=== PATIENT | female | born 1970 | race Caucasian/White ===

== ENCOUNTER 2023-09-25 05:02 | Observation (INO) ==
--- NOTE | 2023-08-11 16:23 | PAT Medication Instructions ---
Medication Instructions Date of Service August 11, 2023 Home Medications albuterol sulfate 90 mcg/actuation breath activated powder inhaler 1 inh inhalation QID PRN cetirizine 10 mg capsule (Zyrtec) 10 mg PO QAM docusate sodium 100 mg tablet 100 mg PO QAM gabapentin 600 mg tablet 2 tab PO BID glucosamine-chondroitin 250 mg-200 mg tablet 1 tab PO QAM levothyroxine 125 mcg tablet 125 mcg PO QAM multivitamin 1 tab PO QAM pantoprazole 40 mg tablet,delayed release (Protonix) 40 mg PO QAM potassium chloride 20 mEq tablet,extended release 20 meq PO QAM trazodone 100 mg tablet 100 mg PO HS valacyclovir 500 mg tablet (Valtrex) 500 mg PO UD PRN buspirone 10 mg tablet 10 mg PO BID Continue as directed valacyclovir 500 mg tablet (Valtrex) 500 mg PO UD PRN(if needed) STOP taking 2 weeks before surgery (or as soon as possible if surgery is within 2 weeks) glucosamine-chondroitin 250 mg-200 mg tablet 1 tab PO QAM DO NOT take the morning of surgery cetirizine 10 mg capsule (Zyrtec) 10 mg PO QAM docusate sodium 100 mg tablet 100 mg PO QAM multivitamin 1 tab PO QAM potassium chloride 20 mEq tablet,extended release 20 meq PO QAM Take morning of surgery With a small sip of water, OTHERWISE NOTHING TO EAT OR DRINK AFTER MIDNIGHT: albuterol sulfate 90 mcg/actuation breath activated powder inhaler 1 inh inhalation QID PRN(use if needed; please bring with you to hospital day of surgery if possible) gabapentin 600 mg tablet 2 tab PO BID levothyroxine 125 mcg tablet 125 mcg PO QAM pantoprazole 40 mg tablet,delayed release (Protonix) 40 mg PO QAM buspirone 10 mg tablet 10 mg PO BID Take evening before surgery albuterol sulfate 90 mcg/actuation breath activated powder inhaler 1 inh inhalation QID PRN(if needed) gabapentin 600 mg tablet 2 tab PO BID trazodone 100 mg tablet 100 mg PO HS buspirone 10 mg tablet 10 mg PO BID Other Notes If you have any questions please call us at [phone] or [phone] or [phone] or [phone]
--- NOTE | 2023-08-18 15:33 | Anesthesiology Consultation ---
Date of Service August 18, 2023 Assessment & Plan (1) Encounter for pre-operative examination: Chart Review Chart Review: Acceptable Risk for Surgery (pending surgeon ordered PCP clearance ) and Patient seen in Pre Admission Testing - Awaiting PCP clearance 09/16/23 - Check test AM DOS - Pt is NOT an OPJ candidate Per PAT appt on 08/18/23, no recent illness/disease exposures, illness related symptoms, or recent illness/disease positive tests. Will leave to surgeon's discretion if preop Covid testing needed History Surgery Operation Date: 09/25/23 07:15 Proposed Procedures p Left Total Knee Arthroplasty - Favian Guajardo MD Height/Weight Height: 5 ft 4 in Weight: 117.2 kg Allergies Allergy/AdvReac Type Severity Reaction Status Date / Time azithromycin [From Zithromax] Allergy Intermediate Feeling of Verified 08/16/23 10:52 "hair standing up off head" beclomethasone Allergy Intermediate Increased Verified 08/16/23 10:52 [From Vanceril] SOB fluticasone Allergy Intermediate "Jittery" Verified 08/16/23 10:52 [From Advair Diskus] feeling ibuprofen Allergy Intermediate Eyes swell Verified 08/16/23 10:52 shut naproxen Allergy Intermediate Eyes swell Verified 08/16/23 10:52 shut prednisone Allergy Intermediate Rash Verified 08/11/23 08:19 salmeterol Allergy Intermediate "Jittery" Verified 08/16/23 10:52 [From Advair Diskus] feeling Medications Home Medications Medication Instructions Recorded Confirmed Last Taken albuterol sulfate 90 mcg/actuation 1 inh inhalation QID PRN SHORT OF 01/22/19 08/11/23 10/16/18 breath activated powder inhaler BREATH cetirizine 10 mg capsule (Zyrtec) 10 mg PO QAM 01/22/19 08/11/23 01/28/19 docusate sodium 100 mg tablet 100 mg PO QAM 01/22/19 08/11/23 01/28/19 gabapentin 600 mg tablet 2 tab PO BID 01/22/19 08/11/23 01/28/19 glucosamine-chondroitin 250 mg-200 1 tab PO QAM 01/22/19 08/11/23 01/28/19 mg tablet levothyroxine 125 mcg tablet 125 mcg PO QAM 01/22/19 08/11/2319 multivitamin 1 tab PO QAM 01/22/19 08/11/23 01/28/19 pantoprazole 40 mg tablet,delayed 40 mg PO QAM 01/22/19 08/11/23 01/28/19 release (Protonix) potassium chloride 20 mEq 20 meq PO QAM 01/22/19 08/11/23 01/28/19 tablet,extended release trazodone 100 mg tablet 100 mg PO HS 01/22/19 08/11/23 01/28/19 valacyclovir 500 mg tablet 500 mg PO UD PRN Cold Sores 01/22/19 08/11/23 05/30/18 (Valtrex) buspirone 10 mg tablet 10 mg PO BID 08/11/23 08/11/23 Unknown Past Medical History Medical History (Updated 08/21/23 @ 09:03 by Aspen Miller PA-C) Anxiety Asthma Well controlled and stable Occ albuterol use Breathing at baseline Blood in urine Chronic since 19 years of age Had cystoscopies in the past- no issues. No current urinary issues Trace blood on preop UA 08/18/23 Cyst B/L knee- drained in the past Depression Emphysema lung Enlarged liver Hx of fatty liver per patient Fibromyalgia GERD (gastroesophageal reflux disease) Well controlled and stable History of COVID-19 08/2021 - no current issues Hyperlipidemia "Borderline" Hypothyroidism Migraine Morbid obesity Neuropathy feet/fingers Restless leg syndrome Sleep apnea No current device Exercise / Class Metabolic Activity II 4-5 Yardwork/Stairs/Walk up hill (one flight of stairs - no chest pain or SOB) Past Family History Family History Mother Family history of diabetes mellitus Past Surgical History Surgical History Family history of reaction to anesthesia Mother- "almost " with anesthesia during hysterectomy H/O foot surgery RT PLANTAR FASCIOTOMY History of arthroscopy left knee History of bunionectomy RT History of cholecystectomy History of colonoscopy History of cystoscopy History of dilatation and curettage History of esophagogastroduodenoscopy (EGD) History of tooth extraction S/P LASIK surgery S/P LEEP (status post loop electrosurgical excision procedure) Past Anesthesia History No Hx of Anesthesia Complications and No Family Hx of Anesthesia Complications (with exception to mother - during hysterectomy - went into cardiac arrest - mother has had surgeries since then - but states her mother has to be put under "slower" ) History of PONV No Hx of PONV and No Hx of Motion Sickness Social History Smoking Status: Current every day smoker tobacco type: cigarettes Smoking cigarettes per day: 1 ppd > advised Do You Dip or Chew Tobacco: No Hx Alcohol Use: Yes Alcohol type: hard liquor alcohol intake frequency: holidays/special occasions only Hx Substance Use: No substance use type: does not use Review of Systems - Chronic coughing/wheezing- chronic post nasal drip (chronic smoker) Patient denies chest pain, shortness of breath, dyspnea on exertion, palpitations. No hx of seizures, stroke, [place]. No hx of blood clots or blood transfusions Physical Exam Vital Signs VITALS BP 125/80 P 87 TEMP 98.2 SP02 95% RESP 16 Constitutional no acute distress ENMT Mouth: no TMJ clicking Thyromental Distance: > or= 3.5 Finger Breadths (3.5) Mallampati Class: I (smaller airway) Neck + short neck and + thick neck; neck extension not limited Respiratory normal respiratory effort; no respiratory distress Auscultation: no wheezes Course breath sounds to right side otherwise CTA Cardiovascular Rate/Rhythm: regular rate and regular rhythm Heart Sounds: no murmur Vessels: no carotid bruit Heart sounds mildly diminished throughout Musculoskeletal Spine: no pain with cervical ROM Extremities: extremities normal to inspection Psychiatric Orientation: alert Lab Results Anesthesia Preop Results Results Anesthesia Widget: WBC 10.52 K/ul (4.8-10.8) 08/18/23 Hgb 12.3 g/dl (12.0-16.0) 08/18/23 Hct 36.6 % (37.0-47.0) L 08/18/23 Plt 211 K/uL (130-400) 08/18/23 Na 138 mmol/L (136-145) 08/18/23 K 4.0 mmol/L (3.5-5.1) 08/18/23 Cl 104 mmol/L (98-107) 08/18/23 CO2 28 mmol/L (21-32) 08/18/23 BUN 14 mg/dl (6-23) 08/18/23 Creat 1.14 mg/dl (0.6-1.2) 08/18/23 Glucose Level 95 mg/dl (70-99(Fasting)) 08/18/23 PT 10.0 Seconds (9.0-12.0) 08/18/23 PTT 25.9 Seconds (21.0-31.0) 08/18/23 INR 0.9 (0.9-1.1) 08/18/23 Urine Color Yellow 08/18/23 Urine Appearance Clear (Clear) 08/18/23 Urine pH 5.5 (4.5-7.5) 08/18/23 Urine Specific [place] 1.021 (1.000-1.030) 08/18/23 Urine Protein Negative (Negative) 08/18/23 Urine Glucose (UA) Negative (Negative) 08/18/23 Urine Ketones Negative (Negative) 08/18/23 Urine Blood Trace (Negative) H 08/18/23 Urine Nitrite Negative (Negative) 08/18/23 Urine Bilirubin Negative (Negative) 08/18/23 Urine Urobilinogen Negative (Negative) 08/18/23 Urine Leukocyte Esterase Negative (Negative) 08/18/23 Urine WBC (Auto) 1-5 /hpf (0-5) 08/18/23 Urine RBC (Auto) 0-4 /hpf (0-4) 08/18/23 Urine Hyaline Casts (Auto) 0 /lpf (0-5) 08/18/23 Urine Epithelial Cells (Auto) >30 /lpf (0-5) H 08/18/23 Urine Bacteria (Auto) Negative (Negative) 08/18/23 Blood Type A Positive 08/18/23 Antibody Screen NEGATIVE 08/18/23 Testing Electrocardiogram Date: 08/18/23 Findings: + NSR @ (86bpm ) Normal EKG per cardio Chest X-Ray Date: 08/18/23 Findings: + NAD FINDINGS: PA and lateral chest radiographs are obtained. No prior studies are available for comparison at the time of dictation. The cardiomediastinal silhouette is top normal for projection noting atherosclerotic calcification of the thoracic aorta. There is mild bibasilar atelectasis. The lungs and pleural spaces are otherwise clear. There is no pneumothorax. The skeletal structures appear osteopenic. The bony thorax appears intact. Mild degenerative change is noted in the spine. Echocardiogram Date: 12/03/21 EF: 69% LV Function: normal RWMA: + none Other Findings: no LVH Valvular Disease: + no significant valvular disease Nondilated cardiac chambers. Trivial posterior loculated pericardial effusion is present. (Seen by cardiology 01/26/2022 in regards to trivial pericardial effusion. Cardio did not feel there was any particular treatment for this as she does not have any pericarditis symptoms. Feel cough and shortness of breath patient was experiencing was related to COVID-19 and are not cardiac related) Other Testing Chest CT 06/09/23= negative benign appearance or behavior. No new/unknown potentially significant incidental findings requiring additional evaluation. Mild coronary artery calcification. Emphysema. Linear type subsegmental atelectasis versus scarring in the left lower lobe.
--- NOTE | 2023-09-23 08:12 | History & Physical Report ---
Date of Service September 23, 2023 Assessment & Plan (1) Primary osteoarthritis of left knee: Plan: Treatment options discussed with the patient and they wish to proceed with surgical management. Risks, benefits and alternatives to surgery including but not limited to infection, DVT, pain, stiffness, need for revision surgery, damage to blood vessels, damage to nerves, PE, , were discussed with the patient and they wish to proceed. Plan for left total knee arthroplasty scheduled for September 25 at [facility] with Dr. Guajardo. Plan on outpatient physical therapy postop. Plan on Xarelto 10 mg daily postop for DVT prophylaxis. All questions answered. Patient will follow-up postoperatively. History of Present Illness Chief Complaint: Left knee pain Primary Care Provider: Shanita Felix PA-C 53-year-old female with past medical history significant for morbid obesity, neuropathy, sleep apnea, fibromyalgia, hypothyroidism, migraine, COPD who presents with ongoing left knee pain. She has pain interfering with her daily activities. She has failed conservative measures including steroid injections and viscosupplementation. She would like to proceed with surgical management. Patient denies headaches, sweats, fevers, chills, double vision, blurred vision, cough, sore throat, dysphagia, chest pain, sob, wheezing, n/v/d/c, numbness, tingling, fatigue, urinary symptoms, mood disorders. ROS positive for left knee pain and stiffness. Allergies Allergy/AdvReac Type Severity Reaction Status Date / Time azithromycin [From Zithromax] Allergy Intermediate Feeling of Verified 08/16/23 10:52 "hair standing up off head" beclomethasone Allergy Intermediate Increased Verified 08/16/23 10:52 [From Vanceril] SOB fluticasone Allergy Intermediate "Jittery" Verified 08/16/23 10:52 [From Advair Diskus] feeling ibuprofen Allergy Intermediate Eyes swell Verified 08/16/23 10:52 shut naproxen Allergy Intermediate Eyes swell Verified 08/16/23 10:52 shut prednisone Allergy Intermediate Rash Verified 08/11/23 08:19 salmeterol Allergy Intermediate "Jittery" Verified 08/16/23 10:52 [From Advair Diskus] feeling Home Medications Medication Instructions Recorded Confirmed Type albuterol sulfate 90 mcg/actuation 1 inh inhalation QID PRN SHORT OF 01/22/19 08/11/23 History breath activated powder inhaler BREATH cetirizine 10 mg capsule (Zyrtec) 10 mg PO QAM 01/22/19 08/11/23 History docusate sodium 100 mg tablet 100 mg PO QAM 01/22/19 08/11/23 History gabapentin 600 mg tablet 2 tab PO BID 01/22/19 08/11/23 History glucosamine-chondroitin 250 mg-200 1 tab PO QAM 01/22/19 08/11/23 History mg tablet levothyroxine 125 mcg tablet 125 mcg PO QAM 01/22/19 08/11/23 History multivitamin 1 tab PO QAM 01/22/19 08/11/23 History pantoprazole 40 mg tablet,delayed 40 mg PO QAM 01/22/19 08/11/23 History release (Protonix) potassium chloride 20 mEq 20 meq PO QAM 01/22/19 08/11/23 History tablet,extended release trazodone 100 mg tablet 100 mg PO HS 01/22/19 08/11/23 History valacyclovir 500 mg tablet 500 mg PO UD PRN Cold Sores 01/22/19 08/11/23 History (Valtrex) buspirone 10 mg tablet 10 mg PO BID 08/11/23 08/11/23 History Past Med/Surg History Medical History (Updated 09/23/23 @ 08:11 by Giles Crook PA-C) Emphysema lung Morbid obesity Neuropathy feet/fingers History of COVID-19 08/2021 - no current issues Sleep apnea No current device Cyst B/L knee- drained in the past Fibromyalgia Blood in urine Chronic since 19 years of age Had cystoscopies in the past- no issues. No current urinary issues Trace blood on preop UA 08/18/23 Enlarged liver Hx of fatty liver per patient GERD (gastroesophageal reflux disease) Well controlled and stable Hypothyroidism Depression Anxiety Restless leg syndrome Hyperlipidemia "Borderline" Migraine Asthma Well controlled and stable Occ albuterol use Breathing at baseline Surgical History History of arthroscopy left knee History of cystoscopy Family history of reaction to anesthesia Mother- "almost " with anesthesia during hysterectomy S/P LEEP (status post loop electrosurgical excision procedure) History of dilatation and curettage History of bunionectomy RT H/O foot surgery RT PLANTAR FASCIOTOMY History of esophagogastroduodenoscopy (EGD) History of colonoscopy History of cholecystectomy History of tooth extraction S/P LASIK surgery Family History Mother Family history of diabetes mellitus Social History Smoking Status: Current every day smoker Tobacco Type: Cigarettes Cigarettes Per Day: 1 ppd > advised; Second Hand Exposure: No; Do You Dip or Chew Tobacco: No; Hx Alcohol Use: Yes Alcohol type: hard liquor Hx Substance Use: No Preferred Language: Venezuelan Communication Ability: Effective Education Associate Required: No Beliefs That Will Affect Care: None Current Living Situation: Family Current Living Situation Comment: SON Feels Safe at Home: Yes Assistive Devices: Glasses Review of Systems All systems reviewed & are unremarkable except as noted in HPI & below Physical Exam Constitutional: well developed and well nourished; no acute distress Eyes: PERRL, conjunctivae normal, anicteric sclerae ENMT: external ear and nose normal, oropharynx normal Neck: trachea midline, no thyromegaly Respiratory: normal respiratory effort, lungs clear to auscultation Cardiovascular: RRR, no murmur, no edema Musculoskeletal: Left knee: Mild effusion. Peripatellar tenderness. Moderate crepitation. Katie's is guarded. Stable valgus and varus stress test. Range of motion is 0 to 130 degrees. Skin: no rashes, warm and dry Neurologic: patellar DTR's 2+ bilat, sensation intact Psychiatric: A+Ox3, euthymic affect Results & Data Diagnostic Findings Left knee radiographs demonstrate mild joint space narrowing medial compartment with periarticular osteophytes. More moderate to severe arthritic changes patellofemoral compartment, [id number].
--- OUTSIDE RECORDS SUMMARY | 2023-09-25 05:21 | External Medical Summary | Summary of Care ---
Author Name Unknown Organization [facility] Address [address] [place] [address] Phone [phone] Care Team Providers Care Carton Maker Name Role Phone Shanita Felix PA-C Primary Care Provider [phone]- [phone] Encounter Details Date Type Department Care Team (Late st Contact Info) Description 09/21/2023 Orders Only [place] [address] [place], [place] [id number] Shanita Felix PA-C [address] [facility] [address] [place] [address] Allergies Active Allergy Reactions Criticality Noted Date Comments Fluticasone-Salmeterol 04/03/2014 Increased shortness of breathe. Tolerates albuterol. Ibuprofen 07/21/2004 eyes swell shut Naproxen 07/21/2004 eyes swells shut Prednisone 07/21/2004 Rash. Tolerates injectable steroid. Salmeterol Unknown 08/05/2014 Beclomethasone Dipropionate 04/03/20 14 Increased shortness of breathe Azithromycin Dihydrate 12/01/2008 Feels like hair is standing up on off head documented as of this encounter (statuses as of 09/22/2023) Medications Medication Sig Dispensed Refills Start Date End Date Status GLUCOSAMINE CHONDROITIN COMPLX PO TABS Take 1 Tablet by mouth in the morning. 0 Active DOCUSATE SODIUM 100 MG PO CAPS Take 1 Capsule by mouth in the morning. 0 Active MULTI-VITAMIN PO TABS Take 1 Tablet by mouth in the morning. 0 Active cetirizine (ZYRTEC) 10 MG Tablet Take 1 Tablet by mouth in the morning. 0 Active traZODone HCl 300 MG Oral Tablet (Desyrel) TAKE ONE TABLET BY MOUTH AT BEDTIME 90 Tablet 1 04/22/2023 04/21/2024 Active busPIRone HCl 10 MG Oral Tablet (Buspar)Indications:G AD (generalized anxiety disorder) TAKE ONE TABLET BY MOUTH EVERY MORNING AND 1 TABLET BEFORE BEDTIME 180 Tablet 2 03/31/2023 03/30/2024 Active Levothyroxine Sodium 150 MCG Oral Tablet (Levoxyl)Indications: Acquired hypothyroidism TAKE ONE TABLET BY MOUTH DAILY AT LEAST 30 MINUTES PRIOR TO THE FIRST MEAL OF THE DAY OR OTHER MEDS 90 Tablet 3 10/19/2022 10/19/2023 Active Pantoprazole Sodium 40 MG Oral Tablet Delayed Release (Protonix)Indications :GERD (gastroesophageal reflux disease) TAKE ONE TABLET BY MOUTH EVERY DAY 30 MINUTES BEFORE THE FIRST MEAL OF THE DAY. DO NOT CRUSH, CUT OR CHEW 90 Tablet 1 06/12/2023 06/11/2024 Active valACYclovir HCl 500 MG Oral Tablet (Valtrex) Take 1 Tablet by mouth in the morning and 1 Tablet at noon and 1 Tablet before bedtime. For recurrent episode. 54 Tablet 1 06/28/2023 Active Gabapentin 600 MG Oral Tablet (Neurontin)Indication s:Other chronic pain Take 2 Tablets by mouth in the morning and 2 Tablets before bedtime. 360 Tablet 3 07/27/2023 Active HYDROcodone-Acetamino phen 5-325 MG Oral Tablet Take 1 Tablet by mouth every 6 hours as needed for Pain, Moderate. 30 Tablet 0 09/06/2023 Active Potassium Chloride Jocy ER 20 MEQ Oral Tablet Extended ReleaseIndications:Hy popotassemia Take 1 Tablet by mouth in the morning. 90 Tablet 3 09/07/2023 Active hydroCHLOROthiazide 50 MG Oral Tablet (Hydrodiuril)Indicati ons:Bilateral edema of lower extremity,HTN, goal below 140/90 Take 1 Tablet by mouth in the morning. 90 Tablet 3 09/07/2023 Active Proventil HFA 108 (90 Base) MCG/ACT Inhalation Aerosol Solution Inhale 2 Puffs by mouth every 4 hours as needed for Wheezing. 0 09/16/2023 Active documented as of this encounter (statuses as of 09/22/2023) Active Problems Problem Noted Date Diagnosed Date Food insecurity 08/14/2023 Overview: Per [facility] Protocol COPD, group B, by GOLD 2017 classification 12/19 Overview: Per COPD GOLD Classification Emphysema lung 04/23/2020 Major depressive disorder, recurrent, unspecifie d 09/25/2019 TERRI (obstructive sleep apnea) 03/13/2019 HTN, goal below 140/90 03/01/2019 Hyperprolactinemia 01/30/2019 Fatty liver 01/04/2019 Generalized osteoarthritis of multiple sites 07/2018 Allergy to NSAIDs 02/12/2018 History of benign pituitary tumor 04/14/2017 Class 3 severe obesity due t o excess calories with serious comorbidity and body mass index (BMI) of 40.0 to 44.9 in adult 04/14/2017 Hyperlipidemia with target LDL less than 130 Asthma, mild persistent 02/22/2016 Hypokalemia 02/10/2016 Migraine without aura and wi thout status migrainosus, not intractable 08/26/2015 GERD (gastroesophageal reflux disease) 4 NOMI (generalized anxiety disorder) 05/06/2014 Fibromyalgia 05/06/2014 Hypothyroidism 02/08/2010 documented as of this encounter (statuses as of 09/22/2023) Resolved Problems Problem Noted Date Diagnosed Date Resolved Date Recurrent major depressive d isorder, in partial remission 11/25/2022 12/15/2022 Class 3 severe obesity due t o excess calories with serious comorbidity and body mass index (BMI) of 45.0 to 49.9 in adult 02/10/2021 3 Recurrent major depressive d isorder, in partial remission 04/23/2020 10/28/2020 History of tobacco use 02/27/201804/23 BMI 40.0-44.9, adult 02/12/2018 021 Body mass index (BMI) of 40. 0 to 44.9 in adult 08/07/2017 08/17/2017 Overview: Per Obesity protocol #1 Hyperlipidemia with target LDL less than 130 6 02/22/2016 Overview: ICD-10 update of inactive term Cervical high risk human pap illomavirus (HPV) DNA test positive 10/28/2015 04/14/2017 Overview: Also 2014, with colposcopy and negative biopsy. Again in 2015, needs 2 negative co-tests to return to normal screening. Hyperlipidemia with target LDL less than 100 5 02/22/2016 Overview: ICD-10 update of inactive term Hyperlipidemia 04/15/2015 08/26/2015 Incomplete bladder emptying 12/01/2014 04/14/2017 Pain in limb 07/02/2014 01/27/2017 Migraine 05/06/2014 08/26/2015 Depression 05/06/2014 10/10/2019 Thoracic or lumbosacral neur itis or radiculitis, unspecified 05/06/2014 04/14/2017 Obesity, Class II, BMI 35-39 .9, isolated (see actual BMI) 04/19/2010 04/14/2017 Overview: Per Obesity Protocol, #19 Hyperpituitarism 02/08/2010 01/27/2017 Overview: Prolactin level 111 in 2003. Intolerant of Meds. Microadenoma resolved [id number] MRI. Prolactin now 28 off all meds Sciatica 11/17/2008 04/14/2017 Elevated sedimentation rate 10/22/2008 02/11/2011 PITUITARY TUMOR - BENIGN 10/22/200807/2017 Overview: First detected by MRI at [place] in 2000. Variable sizes reported from 2 to 6 mm over the years. Then in January 2011 MRI at [facility] [place], no nodule seen. Hand joint pain 10/22/2008 02/11/2011 Asthma, allergic 04/14/2017 documented as of this encounter (statuses as of 09/22/2023) Immunizations Name Administration Dates Next Due SEASONAL INFLUENZA, PF, 6 M & Above, IM , (FLULAVAL or FLUZONE) 08/17/2017 Seasonal Influenza, Split, I IV3, With Preserve, Inj 08/28/2014,09/10/2012,08/24/2011 TD, Preservative Free 05/26/2021 TDAP (age 11 and older)(Adacel) 07/29/2010 documented as of this encounter Social History Tobacco Use Types Packs/Day Years Used Date Smoking Tobacco: Every Day Cigarettes 1 35 Last attempted to quit: 06/06/2016 Smokeless Tobacco: Never Comments:1 PPD 01/26/22 Alcohol Use Standard Drinks/Week Comments No 0 (1 standard drink = 0.6 oz pur e alcohol) SOCIAL PHQ-2 Answer Date Recorded PHQ Adult Total Score 7 07/09/2021 Hunger Vital Sign Answer Date Recorded Within the past 12 months, y ou worried that your food would run out before you got the money to buy more. Sometimes true Within the past 12 months, t he food you bought just didn't last and you didn't have money to get more. Never true 10/2023 Sex and Gender Information Value Date Recorded Sex Assigned at Female 01/30/2019 2:52 PM EDT Gender Identity Female 01/30/2019 2:52 PM EDT Sexual Orientation Straight 01/30/2019 2: 52 PM EDT Job Start Date Occupation Industry Not on file Not on file Not on file documented as of this encounter Functional Status Functional Status Response Date of Assess ment Are you deaf or do you have serious difficulty h earing? No 08/16/2018 Are you blind or do you have serious difficulty seeing, even when wearing glasses? No 08/16/2018 Do you have serious difficul ty walking or climbing stairs? (5 years old or older) No 08/16/2018 Because of a physical, menta l, or emotional condition, do you have difficulty doing errands alone such as visiting a doctor s office or shopping? (15 years old or older) No 08/16/20 18 Cognitive Status Response Date of Assessm ent Because of a physical, menta l, or emotional condition, do you have serious difficulty concentrating, remembering, or making decisions? (5 years old or older) No 08/16/2018 documented as of this encounter Plan of Treatment Upcoming Encounters Date Type Department Care Team (Late st Contact Info) Description 10/06/2023 4:20 PM EST Office Visit [place] [address] [facility] [address] Shanita Felix PA-C [address] [place] [address] 10/23/2023 8:30 PM EST [facility], [facility] [address] [facility] [address] [facility], Sleep Med [facility] [address] [facility] [address] 06/21/2024 3:45 PM EDT Appointment Radiology, [facility] [address] [place] [phone] 08/23/2024 4:00 PM EDT Office Visit Gynecology/Obstetrics [facility] [address] [facility] [address] Mari Amezcua PA-C [address] [place] [address] Scheduled Procedures Name Priority Associated Diagnoses Date/Ti me COLONOSCOPY FLEXIBLE PROXIMA L DIAGNOSTIC Recall History of colonic polyps Health Maintenance Due Date Last Done Comments COVID-19 Vaccine (#1) 1969 Pneumococcal Vaccine: Pediatrics (0 to 5 Years) and At-Risk Patients (6 to 64 Years) (1 - PCV) 1975 Alpha-1 Antitrypsin 1987 DISCUSS TOBACCO CESSATION (REFER TO SMARTSET #3291) 08/26/2016 08/26/2015 (Refused) Zoster Vaccines (1 of 2) 2019 Depression Screening 07/09/2022 07/09/2021, 08/26/2015 (Discussed) Influenza Vaccine (FLU shot) (#1) 2023 08/17/2017, 08/28/2014, 09/10/2012, Additional history exists O2 ASSESSMENT COMPLETED IN PAST YEAR FOR COPD 12/06/2023 12/06/2022 TSH 03/04/2024 03/04/2023, 03/06, 04/02/2021, Additional history exists Mammogram 06/16/2024 06/16/2023, 080 03/2022, 06/04/2021, Additional history exists GFR 08/18/2024 08/18/2023, 042 07/2023, 03/18/2022, Additional history exists COLONOSCOPY-EVERY 3 YRS AGES 18-100 05/31/2025 05/31/2022, 05/31/2022, 03/02/2017, Additional history exists Albumin/Creatinine Ratio 03/04/2026 03/04/2023, 03/06 Pap Smear 07/21/2026 07/21/2023, 0907/2022, 02/27/2018, Additional history exists Diabetes Screening 08/18/2026 08/18/2023, 0 03/04/2023, 03/04/2023, Additional history exists Lipid Panel 03/04/2028 03/04/2023, 03/06, 04/02/2021, Additional history exists Cervical Cancer Screening 07/21/2028 HPV/Co-Test 07/21/2028 07/21/2023 DTaP,Tdap,and Td Vaccines (3 - Td or Tdap) 05/26/2031 05/26/2021, 07/29/2010 COLONOSCOPY-EVERY 5 YRS AGES 18-100 Discontinued 05/31/2022, 05/31/2022, 03/02/2017, Additional history exists LUNG CANCER SCREENING - USE SMARTSET 40847 Completed 06/09/2023 GARDASIL-HPV IMMUNIZATION SERIES Aged Out No longer eligible based on patient's age to complete this topic MENINGOCOCCAL (MENACTRA/MENVEO) Aged Out No longer eligible based on patient's age to complete this topic documented as of this encounter Medical Devices Not on filedocumented as of this encounter Procedures Procedure Name Priority Date/Time Associated Diagnosis Comments RADIOLOGY EXAM - MRI (IMAGES ONLY, NO REPORT) Routine 09/21/2023 4:50 PM EST documented in this encounter Results * RADIOLOGY EXAM - MRI (IMAGES ONLY, NO REPORT) (09/21/2023 4:50 PM EST) 09/21/2023 4:49 PM EST Narrative Scheduling, Silent - 09/22/2023 11:25 AM EST This is an imaging study not interpreted or resulted by a [facility] or [facility] contracted radiologist. Shanita Felix PA-C RAD MRI-MRA documented in this encounter Advance Directives Latest Code Status on File Code Status Date Activated Date Inactivated Comments Full Code 05/31/2022 11:38 AM 05/31/2022 4:32 PM This order reflects the patients wishes and were consensually agreed upon. Question Answer Comments Discussion of Advance Directives occurred with: Not Discussed Code Status History Code Status Date Activated Date Inactivated Comments Full Code 05/31/2022 11:05 AM 05/31/2022 11:37 AM Thi s order reflects the patients wishes and were consensually agreed upon. Question Answer Comments Discussion of Advance Directives occurred with: Not Discussed Full Code 08/16/2018 10:20 PM 08/20/2018 5:17 PM Th is order reflects the patients wishes and were consensually agreed upon. Question Answer Comments Discussion of Advance Directives occurred with: Patient Does the patient have a Living Will? No Does the patient have Health Care Power of Investment Recovery Technician? No Care Teams Carton Maker Relationship Specialty Start Date End Date Shanita Felix PA-C [address] [facility] [address] [place] [address] PCP - General Physician Cadmium Burner 11/14/14 documented as of this encounter
--- OUTSIDE RECORDS SUMMARY | 2023-09-25 05:21 | External Medical Summary | Summary of Care ---
Author Name Unknown Organization [facility] Address [address] [place] [address] Phone [phone] Care Team Providers Care Warehouse Freight Handler Name Role Phone Maribel Felix PA-C Primary Care Provider [phone]- [phone] Reason for Visit * Reason Onset Date Comments Medication Refill 09/07/2023 Encounter Details Date Type Department Care Team (Late st Contact Info) Description 09/07/2023 Refill [place] [address] [place] [address] Marbiel Felix PA-C [facility] [address] [place] [address] Bilateral edema of lower extremity; HTN, goal below 140/90 Allergies Active Allergy Reactions Criticality Noted Date Comments Fluticasone-Salmeterol 04/03/2014 Increased shortness of breathe. Tolerates albuterol. Ibuprofen 07/21/2004 eyes swell shut Naproxen 07/21/2004 eyes swells shut Prednisone 07/21/2004 Rash. Tolerates injectable steroid. Salmeterol Unknown 08/05/2014 Beclomethasone Dipropionate 04/03/20 14 Increased shortness of breathe Azithromycin Dihydrate 12/01/2008 Feels like hair is standing up on off head documented as of this encounter (statuses as of 09/19/2023) Medications Medication Sig Dispensed Refills Start Date [...] BY MOUTH AT BEDTIME 90 Tablet 1 3 04/21/20 24 Active busPIRone HCl 10 MG Oral Tablet (Buspar)Indication s:NOMI (generalized anxiety disorder) TAKE ONE TABLET BY MOUTH EVERY MORNING AND 1 TABLET BEFORE BEDTIME 180 Tablet 2 3 03/30/20 24 Active Levothyroxine Sodium 150 MCG Oral Tablet (Levoxyl)Indicatio ns:Acquired hypothyroidism TAKE ONE TABLET BY MOUTH DAILY AT LEAST 30 MINUTES PRIOR TO THE FIRST MEAL OF THE DAY OR OTHER MEDS 90 Tablet 3 2 10/19/20 23 Active Pantoprazole Sodium 40 MG Oral Tablet Delayed Release (Protonix)Indicati ons:GERD (gastroesophageal reflux disease) TAKE ONE TABLET BY MOUTH EVERY DAY 30 MINUTES BEFORE THE FIRST MEAL OF THE DAY. DO NOT CRUSH, CUT OR CHEW 90 Tablet 1 3 06/11/20 24 Active valACYclovir HCl 500 MG Oral Tablet (Valtrex) Take 1 Tablet by mouth in the morning and 1 Tablet at noon and 1 Tablet before bedtime. For recurrent episode. 54 Tablet 1 3 Active Gabapentin 600 MG Oral Tablet (Neurontin)Indicat ions:Other chronic pain Take 2 Tablets by mouth in the morning and 2 Tablets before bedtime. 360 Tablet 3 3 Active HYDROcodone-Acetam inophen 5-325 MG Oral Tablet Take 1 Tablet by mouth every 6 hours as needed for Pain, Moderate. 30 Tablet 0 3 Active Potassium Chloride Jocy ER 20 MEQ Oral Tablet Extended ReleaseIndications :Hypopotassemia Take 1 Tablet by mouth in the morning. 90 Tablet 3 3 Active hydroCHLOROthiazid e 50 MG Oral Tablet (Hydrodiuril)Indic ations:Bilateral edema of lower extremity,HTN, goal below 140/90 Take 1 Tablet by mouth in the morning. 90 Tablet 3 3 Active hydroCHLOROthiazid e 50 MG Oral Tablet (Hydrodiuril)Indic ations:Bilateral edema of lower extremity,HTN, goal below 140/90 TAKE ONE TABLET BY MOUTH EVERY DAY 90 Tablet 3 2 09/07/20 23 Discontinued(Re fill) metroNIDAZOLE 500 MG Oral Tablet (Flagyl) Take 1 Tablet by mouth in the morning and 1 Tablet before bedtime. X 7 days until gone.. 14 Tablet 0 3 09/16/20 23 Discontinued(Pa john preference/disc ontinuation) metroNIDAZOLE 0.75 % Vaginal Gel Administer 1 Applicator into the vagina at bedtime for 5 days. For 5 days. 70 g 0 3 09/16/20 23 Discontinued documented as of this encounter (statuses as of 09/19/2023) Active Problems Problem Noted Date Diagnosed Date [...] as of this encounter (statuses as of 09/19/2023) Resolved Problems Problem Noted Date Diagnosed Date [...] DNA test positive 10/28/2015 04/14/2017 Overview: Also 2013, with colposcopy and negative biopsy. Again in 2014, needs 2 negative co-tests to return to [...] in 2003. Intolerant of Meds. Microadenoma resolved [id number] MRI. Prolactin now 28 off all meds Sciatica 11/17/2008 04/14/2017 Elevated sedimentation rate 10/22/2008 02/11/2011 PITUITARY TUMOR - BENIGN 10/22/200807/2017 Overview: First detected by MRI at [place] in 2000. Variable sizes reported from 2 to 6 mm over the years. Then in January 2011 MRI at [facility], no nodule seen. Hand joint pain 10/22/2008 02/11/2011 Asthma, allergic 04/14/2017 documented as of this encounter (statuses as of 09/19/2023) Immunizations Name Administration Dates Next Due SEASONAL [...] No 08/16/2018 documented as of this encounter Miscellaneous Notes * Telephone Encounter - Maribel Felix PA-C - 09/07/2023 4:47 PM EDTSigned Prescriptions: Disp Refills hydroCHLOROthiazide 50 MG Oral Tablet (Hyd*90 Tab*3 Sig: Take 1 Tablet by mouth in the morning. Authorizing Provider: MARIBEL FELIX * Telephone Encounter - Rossana Virgen OSA - 09/07/2023 4:34 PM EDT Did you pend patient's preferred pharmacy and medication before forwarding?yes Pharmacy: [facility] Pending Prescriptions: Disp Refills hydroCHLOROthiazide 50 MG Oral Tablet (Hy*90 Tab*0 Sig: Take 1 Tablet by mouth in the morning. Last Visit: 03/31/2023 (in office), Visit date not found (telemedicine) Next Visit: 10/06/2023 If no future appointments scheduled, and last appointment is greater than a year ago, please schedule patient for a follow-up appointment Last date the medication was ordered: 05/20/22 Is this request for a controlled substance?No Urine Drug Screen: Results for orders placed or performed during the hospital encounter of 08/16/18 TOX SCREEN, URINE, W/O CONFIRMATION Result Value AMPHETAMINES NEGATIVE BARBITURATES NEGATIVE BENZODIAZEPINES NEGATIVE CANNABINOIDS NEGATIVE COCAINE METABOLITE NEGATIVE MORPHINE/ CODEINE POSITIVE (A) METHADONE METABOLITE NEGATIVE OXYCODONE NEGATIVE NOTE: THE ABOVE SCREENING RESULTS ARE PRESUMPTIVE AND CAN ONLY BE USED FOR MEDICAL PURPOSES. CONFIRMATORY TESTING IS AVAILABLE UPON REQUEST. CUTOFF CONCENTRATION Patient Phone Numbers Labs: Lab Results Component Value Date/Time CREAT 1.14 08/18/2023 12:00 AM CREAT 1.0 05/19/2020 07:23 PM POTASSIUM 4.0 08/18/2023 12:00 AM POTASSIUM 3.5 05/19/2020 07:23 PM TSH 2.72 03/04/2023 11:06 AM TSH 0.84 04/29/2020 07:57 AM LDLCALC 127 03/04/2023 11:06 AM LDLCALC 134 (H) 04/29/2020 07:57 AM LDLDIRECT NOT APPLICABLE 04/29/2020 07:57 AM ALT 17 03/04/2023 11:06 AM ALT 18 05/19/2020 07:23 PM HGBA1C 5.4 03/04/2023 11:06 AM HGBA1C 5.5 04/23/2019 10:04 AM documented in this encounter Plan of Treatment Upcoming Encounters Date Type Department Care Team (Late st Contact Info) Description 09/21/2023 4:15 PM EST Imaging Radiology, [address] [place] [address] 10/06/2023 4:20 PM EST Office Visit [place] [address] [place] [address] Maribel Felix PA-C [address] [place] [address] [address] [place] [address] 10/23/2023 8:30 PM EST PulmDiagnostic Sleep Lab, [facility] [address] [place] [address] [facility], Sleep Med [facility] Sleep [address] [facility] [place] [phone] 06/21/2024 3:45 PM EDT Appointment Radiology, [facility] [address] [place] [phone] 08/23/2024 4:00 PM EDT Office Visit Gynecology/Obstetrics [facility] [address] [place] [address] Mari Amezcua PA-C [address] [facility] [place] [address] Scheduled Procedures Name Priority Associated Diagnoses Date/Ti [...] 04/02/2021, Additional history exists Mammogram 06/16/2024 06/16/2023, 08/0 03/2022, 06/04/2021, Additional history exists GFR 08/18/2024 08/18/2023, 02/05, 03/18/2022, Additional history exists COLONOSCOPY-EVERY 3 YRS AGES 18-100 05/31/2025 05/31/2022, 05/31/2022, 03/02/2017, Additional history exists Albumin/Creatinine Ratio 03/04/2026 03/04/2023, 03/06 Pap Smear 07/21/2026 07/21/2023, 09/0 07/2022, 02/27/2018, Additional history exists Diabetes Screening 08/18/2026 08/18/2023, 0 03/04/2023, 03/04/2023, Additional history exists Lipid Panel 03/04/2028 03/04/2023, 05/1 01/2022, 04/02/2021, Additional history exists Cervical Cancer Screening 07/21/2028 HPV/Co-Test 07/21/2028 07/21/2023 DTaP,Tdap,and Td Vaccines (3 - Td or Tdap) 05/26/2031 05/26/2021, 07/29/2010 COLONOSCOPY-EVERY 5 YRS AGES 18-100 Discontinued 05/31/2022, 05/31/2022, 03/02/2017, Additional history exists LUNG CANCER SCREENING - USE SMARTSET 77053 Completed 06/09/2023 GARDASIL-HPV IMMUNIZATION SERIES Aged Out No longer eligible based on patient's age to complete this topic MENINGOCOCCAL (MENACTRA/MENVEO) Aged Out No longer eligible based on patient's age to complete this topic documented as of this encounter Medical Devices Not on filedocumented as of this encounter Visit Diagnoses Diagnosis Bilateral edema of lower extremity Edema HTN, goal below 140/90 Unspecified essential hypertension documented in this encounter Advance Directives Latest [...] the patient have Health Care Power of Pathology Secretary/Transcriptionist? No Care Teams Warehouse Freight Handler Relationship Specialty Start Date End Date Rheel, Maribel N, PA-C [address] [place] [address] [place] [address] PCP - General Physician School Bus Monitor 11/14/14 documented as of this encounter
--- OUTSIDE RECORDS SUMMARY | 2023-09-25 05:21 | External Medical Summary | Summary of Care ---
Author Name Unknown Organization [facility] Address [address] [place] [address] Phone [phone] Care Team Providers Care Workforce Management Analyst Name Role Phone Isidro Shanita Tread[place] PA-C Primary Care Provider +1- [phone] Reason for Visit * Reason Onset Date Comments H&P Surgery 09/17/2023 Preop clearance Encounter Details Date Type Department Care Team (Late st Contact Info) Description 09/17/2023 Telephone [place] [address] [place] [address] Tavo Hayes MD [facility] [address] [place] [id number] H&P Surgery (Preop clearance) Allergies Active Allergy Reactions Criticality Noted Date Comments Fluticasone-Salmeterol 04/03/2014 Increased shortness of breathe. Tolerates albuterol. Ibuprofen 07/21/2004 eyes swell shut Naproxen 07/21/2004 eyes swells shut Prednisone 07/21/2004 Rash. Tolerates injectable steroid. Salmeterol Unknown 08/05/2014 Beclomethasone Dipropionate 04/03/20 14 Increased shortness of breathe Azithromycin Dihydrate 12/01/2008 Feels like hair is standing up on off head documented as of this encounter (statuses as of 09/18/2023) Medications Medication Sig Dispensed Refills Start Date [...] 30 Tablet 0 09/06/2023 Active Potassium Chloride Joyc ER 20 MEQ Oral Tablet Extended ReleaseIndications:Hy [...] as of this encounter (statuses as of 09/18/2023) Active Problems Problem Noted Date Diagnosed Date [...] as of this encounter (statuses as of 09/18/2023) Resolved Problems Problem Noted Date Diagnosed Date [...] in 2003. Intolerant of Meds. Microadenoma resolved [id number] MRI. 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 Variable sizes reported from 2 to 6 mm over the years. Then in January 2011 MRI at [facility], no nodule seen. Hand joint pain 10/22/2008 02/11/2011 Asthma, allergic 04/14/2017 documented as of this encounter (statuses as of 09/18/2023) Immunizations Name Administration Dates Next Due SEASONAL [...] encounter Miscellaneous Notes * Telephone Encounter - Karin Dinh OSA - 09/18/2023 7:19 AM EST Faxed Monday office visit note to Dr. Yoon. * Telephone Encounter - Tavo Hayes MD - 09/17/2023 10:36 PM EST Please fax my Monday note to Dr. Guajardo's office and/or [facility]. Tavo Hayes MD 09/17/2023 documented in this encounter Plan of Treatment Upcoming Encounters Date Type Department Care Team (Late st Contact Info) Description 09/21/2023 4:15 PM EST Imaging Radiology, [address] [place] [address] 10/06/2023 4:20 PM EST Office Visit [place] [address] [place] [address] Shanita Felix, PA-C [address] [place] [address] [place] [address] 10/23/2023 8:30 PM EST PulmDiagnostic Sleep Lab, [address] [place] [address] [facility], Sleep Med Night Sleep [address] [facility] [place] [address] 06/21/2024 3:45 PM EDT [address] Radiology, [address] [place] [phone] 08/23/2024 4:00 PM EDT Office Visit Gynecology/Obstetrics [address] [place] [address] Mari Amezcua PA-C [address] [place] [address] Scheduled Procedures Name Priority Associated Diagnoses Date/Ti [...] 04/02/2021, Additional history exists Mammogram 06/16/2024 06/16/2023, 0803/2022, 06/04/2021, Additional history exists GFR 08/18/2024 08/18/2023, 02/05, 03/18/2022, Additional history exists COLONOSCOPY-EVERY 3 YRS AGES 18-100 05/31/2025 05/31/2022, 05/31/2022, 03/02/2017, Additional history exists Albumin/Creatinine Ratio 03/04/2026 03/04/2023, 03/06 Pap Smear 07/21/2026 07/21/2023, 090 07/2022, 02/27/2018, Additional history exists Diabetes Screening 08/18/2026 08/18/2023, 0 03/04/2023, 03/04/2023, Additional history exists Lipid Panel 03/04/2028 03/04/2023, 03/06, 04/02/2021, Additional history exists Cervical Cancer Screening 07/21/2028 HPV/Co-Test 07/21/2028 07/21/2023 DTaP,Tdap,and Td Vaccines (3 - Td or Tdap) 05/26/2031 05/26/2021, 07/29/2010 COLONOSCOPY-EVERY 5 YRS AGES 18-100 Discontinued 05/31/2022, 05/31/2022, 03/02/2017, Additional history exists LUNG CANCER SCREENING - USE SMARTSET 42366 Completed 06/09/2023 GARDASIL-HPV IMMUNIZATION SERIES Aged Out No longer eligible based on patient's age to complete this topic MENINGOCOCCAL (MENACTRA/MENVEO) Aged Out No longer eligible based on patient's age to complete this topic documented as of this encounter Medical Devices Not on filedocumented as of this encounter Advance Directives Latest Code Status [...] the patient have Health Care Power of Jack Prizer? No Care Teams Workforce Management Analyst Relationship Specialty Start Date End Date Shanita Felix PA-C [address] [facility] [address] [facility] [place] [address] PCP - General Physician Workers Compensation Claims Analyst 11/14/14 documented as of this encounter
--- OUTSIDE RECORDS SUMMARY | 2023-09-25 05:21 | External Medical Summary | Summary of Care ---
Author Name Unknown Organization [facility] Address [address] [place] [address] Phone [phone] Care Team Providers Care Fruit Dumper Name Role Phone Shanita Felix PA-C Primary Care Provider +1- [phone] Reason for Referral * Precert (Within 10 days (routine)) - Pending Review Specialty Diagnoses / Procedures Referred By Jasbir dailey Referred To Contact Radiology Diagnoses Right foot pain Procedures MRI FOOT RIGHT WO CONTRAST Shanita Felix PA-C [address] [facility] [address] [place] [address] Referral ID Status Reason Start Date Expiration Date V isits Requested Visits Authorized [id number] Pending Review 09/07/2023 999 999 Reason for Visit * Reason Onset Date Comments Referral 09/06/2023 Encounter Details Date Type Department Care Team (Late st Contact Info) Description 09/06/2023 Telephone [place] [address] [place] [address] Shanita Felix PA-C [address] [facility] [address] [place], [place] [id number] Referral Allergies Active Allergy Reactions Criticality Noted Date Comments Fluticasone-Salmeterol 04/03/2014 Increased shortness of breathe. Tolerates albuterol. Ibuprofen 07/21/2004 eyes swell shut Naproxen 07/21/2004 eyes swells shut Prednisone 07/21/2004 Rash. Tolerates injectable steroid. Salmeterol Unknown 08/05/2014 Beclomethasone Dipropionate 04/03/20 14 Increased shortness of breathe Azithromycin Dihydrate 12/01/2008 Feels like hair is standing up on off head documented as of this encounter (statuses as of 09/07/2023) Medications Medication Sig Dispensed Refills Start Date [...] by mouth in the morning. 0 Active Potassium Chloride Jocy ER 20 MEQ Oral Tablet Extended ReleaseIndications:Hy popotassemia TAKE ONE TABLET BY MOUTH EVERY DAY 90 Tablet 3 05/20/2022 Active traZODone HCl 300 MG Oral Tablet [...] recurrent episode. 54 Tablet 1 06/28/2023 Active metroNIDAZOLE 500 MG Oral Tablet (Flagyl) Take 1 Tablet by mouth in the morning and 1 Tablet before bedtime. X 7 days until gone.. 14 Tablet 0 07/25/2023 Active Gabapentin 600 MG Oral Tablet (Neurontin)Indication s:Other chronic pain Take 2 Tablets by mouth in the morning and 2 Tablets before bedtime. 360 Tablet 3 07/27/2023 Active HYDROcodone-Acetamino phen 5-325 MG Oral Tablet Take 1 Tablet by mouth every 6 hours as needed for Pain, Moderate. 30 Tablet 0 09/06/2023 Active documented as of this encounter (statuses as of 09/07/2023) Active Problems Problem Noted Date Diagnosed Date [...] as of this encounter (statuses as of 09/07/2023) Resolved Problems Problem Noted Date Diagnosed Date [...] in 2003. Intolerant of Meds. Microadenoma resolved [id number] MRI. 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 Variable sizes reported from 2 to 6 mm over the years. Then in January 2011 MRI at [facility], no nodule seen. Hand joint pain 10/22/2008 02/11/2011 Asthma, allergic 04/14/2017 documented as of this encounter (statuses as of 09/07/2023) Immunizations Name Administration Dates Next Due SEASONAL [...] or making decisions? (5 years old or older No 08/16/2018 documented as of this encounter Miscellaneous Notes * Addendum Note - Shanita Felix PA-C - 09/07/2023 4:11 PM EDTAddended by: SHANITA FELIX on: 09/07/2023 04:11 PM Modules accepted: Orders * Telephone Encounter - Shanita Felix PA-C - 09/07/2023 4:11 PM EDT New orders signed. * Addendum Note - Lissa Dasilva RN - 09/07/2023 1:41 PM EDTAddended by: LISSA DASILVA on: 09/07/2023 01:41 PM Modules accepted: Orders * Telephone Encounter - Lissa Dasilva RN - 09/07/2023 1:38 PM EDT Provider to address: Order pended per recommendation. Please sign if agreeable. Reason for Call: Referral Contact: My [facility] Contact Type: Orders Outcome: see above. Face to face time spent with Patient (minutes): 0 Total Time including non face to face (minutes): 10 * Telephone Encounter - Lashon Mohan OSA - 09/07/2023 1:15 PM EDT Patient called to check status of MRI foot to schedule, I stated I only see the ankle and she wanted me to reach out for the foot MRI as well before she schedules. Thank you! * Telephone Encounter - Rossana Virgen OSA - 09/07/2023 12:42 PM EDT Called Mri Pt is telling them that it is her foot not her ankle if you want both done it has to be 2 different orders. * Telephone Encounter - Shanita Felix PA-C - 09/07/2023 12:26 PM EDT Diagnosis or MRI order. They only orders I see for MRIs are of the ankle? Please assist. * Telephone Encounter - Ana Rocha OSA - 09/06/2023 3:57 PM EDT Good afternoon, Received a call from Dona, patient stated when she went to make the appointment for the MRI of her ankle the traffic workforce representative stated the referral should state "Foot and Ankle" right now the referral has "Ankle" only. Please advise. If there are any questions please call Dona at [phone] Thank you. TERRI Alcaraz documented in this encounter Plan of Treatment Upcoming Encounters Date Type Department Care Team (Late st Contact Info) Description 09/16/2023 9:20 AM EST [facility] [address] [place] [phone] Tavo Hayes MD [facility] [facility] [address] [place] [address] 10/06/2023 4:20 PM EST Office Visit [place] [address] [place] [address] Shanita Felix PA-C [address] [place] [address] [address] [place] [address] 10/23/2023 8:30 PM EST PulmDiagnostic Sleep Lab, [facility] [address] [facility] [place] [address] Glh, Sleep Med Night Sleep [address] [facility] [place] [address] 06/21/2024 3:45 PM EDT [address]ointment Radiology, [address] [id number] 08/23/2024 4:00 PM EDT Office Visit Gynecology/Obstetrics [facility] [address] [facility] [place] [address] Mari Amezcua PA-C [address] [facility] [address] Scheduled Orders Name Type Priority Associated Diagnoses Orde r Schedule MRI FOOT RIGHT WO CONTRAST Medical Imaging Routine Right foot pain Expected: 09/07/2023, Expires: 10/07/2024 Scheduled Procedures Name Priority Associated Diagnoses Date/Ti [...] 06/04/2021, Additional history exists GFR 08/18/2024 08/18/2023, 04/2 07/2023, 03/18/2022, Additional history exists COLONOSCOPY-EVERY 3 [...] exists LUNG CANCER SCREENING - USE SMARTSET 38415 Completed 06/09/2023 GARDASIL-HPV IMMUNIZATION SERIES Aged Out No longer eligible based on patient's age to complete this topic MENINGOCOCCAL (MENACTRA/MENVEO) Aged Out No longer eligible based on patient's age to complete this topic documented as of this encounter Medical Devices Not on filedocumented as of this encounter Visit Diagnoses Diagnosis Right foot pain- Primary Pain in limb documented in this encounter Advance Directives Latest [...] the patient have Health Care Power of Managed Care Manager? No Care Teams Fruit Dumper Relationship Specialty Start Date End Date Shanita Felix PA-C [address] [facility] [place] [address] PCP - General Physician Marking Clerk 11/14/14 documented as of this encounter
--- OUTSIDE RECORDS SUMMARY | 2023-09-25 05:21 | External Medical Summary | Summary of Care ---
Author Name Unknown Organization [facility] Address [address] [place] [address] Phone [phone] Care Team Providers Care Shoe Cobbler Name Role Phone Isidro Shanita T[place] PA-C Primary Care Provider +1- [phone] Encounter Details Date Type Department Care Team (Latest Contact Info) Description 09/21/2023 4:50 PM EST - 09/21/2023 11:59 PM EST Hospital Encounter Radiology Film File [address] [place] [address] Arrived Discharge Disposition: Home - Self Care Allergies Active Allergy Reactions Criticality Noted Date Comments Fluticasone-Salmeterol 04/03/2014 Increased shortness of breathe. Tolerates albuterol. Ibuprofen 07/21/2004 eyes swell shut Naproxen 07/21/2004 eyes swells shut Prednisone 07/21/2004 Rash. Tolerates injectable steroid. Salmeterol Unknown 08/05/2014 Beclomethasone Dipropionate 04/03/20 14 Increased shortness of breathe Azithromycin Dihydrate 12/01/2008 Feels like hair is standing up on off head documented as of this encounter (statuses as of 09/23/2023) Medications Medication Sig Dispensed Refills Start Date [...] as of this encounter (statuses as of 09/23/2023) Active Problems Problem Noted Date Diagnosed Date [...] as of this encounter (statuses as of 09/23/2023) Resolved Problems Problem Noted Date Diagnosed Date [...] in 2003. Intolerant of Meds. Microadenoma resolved [id number] MRI. Prolactin now 28 off all meds Sciatica 11/17/2008 04/14/2017 Elevated sedimentation rate 10/22/2008 02/11/2011 PITUITARY TUMOR - BENIGN 10/22/200807/2017 Overview: First detected by MRI at [place] in 2000. Variable sizes reported from 2 to 6 mm over the years. Then in January [address] [facility], no nodule seen. Hand joint pain 10/22/2008 02/11/2011 Asthma, allergic 04/14/2017 documented as of this encounter (statuses as of 09/23/2023) Immunizations Name Administration Dates Next Due SEASONAL [...] Description 10/06/2023 4:20 PM EST Office Visit [place] [address] [place] [address] Shanita Felix PA-C [address] [facility] [address] [place] [address] 10/23/2023 8:30 PM EST PulmDiagnostic Sleep Lab, [facility] [address] [facility] [address] [facility] [address] [facility] [address] 06/21/2024 3:45 PM EDT [address] Radiology, [address] [phone] 08/23/2024 4:00 PM EDT Office Visit Gynecology/Obstetrics [address] [place] [address] Mari Amezcua PA-C [address] [place] [address] Scheduled Procedures Name Priority Associated Diagnoses Date/Ti [...] Additional history exists Albumin/Creatinine Ratio 03/04/2026 03/04/2023, 051 01/2022 Pap Smear 07/21/2026 07/21/2023, 09/0 07/2022, 02/27/2018, [...] exists LUNG CANCER SCREENING - USE SMARTSET [id number] Completed 06/09/2023 GARDASIL-HPV IMMUNIZATION SERIES Aged Out [...] the patient have Health Care Power of Die Polisher? No Care Teams Shoe Cobbler Relationship Specialty Start Date End Date Shanita Felix PA-C [address] [facility] [address] [place] [address] PCP - General Physician Electrical Lineworker 11/14/14 documented as of this encounter
--- OUTSIDE RECORDS SUMMARY | 2023-09-25 05:21 | External Medical Summary | Summary of Care ---
Author Name Unknown Organization [facility] Address [address] [place] [address] Phone [phone] Care Team Providers Care House Furnishings Supervisor Name Role Phone Kwabenamarlyn Shanita Treadwell PA-C Primary Care Provider [phone]- [phone] Reason for Visit * Reason Comments pre-op exam Encounter Details Date Type Department Care Team (Late st Contact Info) Description 09/16/2023 9:20 AM EST Office Visit [facility] [address] [place] [address] Tavo Hayes MD [address] [facility] [address] [place] [id number] Pre-op evaluation* Allergies Active Allergy Reactions Criticality Noted Date Comments Fluticasone-Salmeterol 04/03/2014 Increased shortness of breathe. Tolerates albuterol. Ibuprofen 07/21/2004 eyes swell shut Naproxen 07/21/2004 eyes swells shut Prednisone 07/21/2004 Rash. Tolerates injectable steroid. Salmeterol Unknown 08/05/2014 Beclomethasone Dipropionate 04/03/20 14 Increased shortness of breathe Azithromycin Dihydrate 12/01/2008 Feels like hair is standing up on off head documented as of this encounter (statuses as of 09/16/2023) Medications Medication Sig Dispensed Refills Start Date [...] the morning. 90 Tablet 3 3 Active Proventil HFA 108 (90 Base) MCG/ACT Inhalation Aerosol Solution Inhale 2 Puffs by mouth every 4 hours as needed for Wheezing. 0 3 Active metroNIDAZOLE 500 MG Oral Tablet (Flagyl) Take 1 Tablet by mouth in the morning and 1 Tablet before bedtime. X 7 days until gone.. 14 Tablet 0 3 09/16/20 23 Discontinued(Noe lopez preference/disc ontinuation) metroNIDAZOLE 0.75 % Vaginal Gel Administer 1 Applicator into the vagina at bedtime for 5 days. For 5 days. 70 g 0 3 09/16/20 23 Discontinued documented as of this encounter (statuses as of 09/16/2023) Active Problems Problem Noted Date Diagnosed Date [...] as of this encounter (statuses as of 09/16/2023) Resolved Problems Problem Noted Date Diagnosed Date [...] in 2003. Intolerant of Meds. Microadenoma resolved [id number] MRI. Prolactin now 28 off all meds Sciatica 11/17/2008 04/14/2017 Elevated sedimentation rate 10/22/2008 02/11/2011 PITUITARY TUMOR - BENIGN 10/22/200807/2017 Overview: First detected by MRI at [place] in 2000. Variable sizes reported from 2 to 6 mm over the years. [place] 2011 [place] [facility]. Hand joint pain 10/22/2008 02/11/2011 Asthma, allergic 04/14/2017 documented as of this encounter (statuses as of 09/16/2023) Immunizations Name Administration Dates Next Due SEASONAL [...] attempted to quit: 06/06/2016 Smokeless Tobacco: Never Tobacco Cessation:Ready to Q uit: No; Counseling Given: No Comments:1 PPD 01/26/22 Alcohol Use Standard Drinks/Week [...] on file documented as of this encounter Last Filed Vital Signs Vital Sign Reading Time Taken Comments Blood Pressure 110/70 09/16/2023 9:23 AM EST Pulse 72 09/16/2023 9:23 AM EST Temperature 35.9 C (96.6 F) 09/16/2023 9:23 AM EST Respiratory Rate 16 09/16/2023 9:23 AM EST Oxygen Saturation 95% 09/16/2023 9:23 AM EST Inhaled Oxygen Concentration - - Weight 114.9 kg (253 lb 3.2 oz) 09/16/2023 9:23 AM EST Height - - Body Mass Index 43.46 08/20/2023 3:23 PM EDT documented in this encounter Functional Status Functional Status Response [...] No 08/16/2018 documented as of this encounter Progress Notes * Tavo Hayes MD - 09/16/2023 9:54 AM EST Images from the original note were not included. Pre-Operative Medical Evaluation Procedure Information Type of Surgery: Knee Replacement Referring Physician / Surgeon: Dr. Favian Guajardo Date of procedure: September 25, 2023. Brief History of Present Illness: per Ortho. Skin. Patient denies new or different rashes or skin breakdown. Eyes. Denies visual changes eye redness or eye discharge. Ear nose and throat. Denies sinus pain or teeth pain. Respiratory. Denies cough or hemoptysis. Cardiovascular. Denies paroxysmal nocturnal dyspnea dyspnea exertion. Gastrointestinal. Denies vomiting or melanotic stool. Genitourinary. Denies hematuria or dysuria. Constitutional. Denies fevers or weight loss Medical History Problem List: Food insecurity (08/14/2023) COPD, group B, by GOLD 2017 classification ([facility]) (12/19/2022) Recurrent major depressive disorder, in partial remission ([facility]) () Class 3 severe obesity due to excess calories with serious comorbidity and body mass index (BMI) of 45.0 to 49.9 in adult ([facility]) (02/10/2021) Emphysema lung ([facility]) (04/23/2020) Recurrent major depressive disorder, in partial remission ([facility]) () Major depressive disorder, recurrent, unspecified ([facility]) (09/25/2019) TERRI (obstructive sleep apnea) (03/13/2019) HTN, goal below 140/90 (03/01/2019) Hyperprolactinemia ([facility]) (01/30/2019) Fatty liver (01/04/2019) History of tobacco use (02/27/2018) Generalized osteoarthritis of multiple sites (02/12/2018) Allergy to NSAIDs (02/12/2018) BMI 40.0-44.9, adult ([facility]) (02/12/2018) Body mass index (BMI) of 40.0 to 44.9 in adult ([facility]) (08/07/2017) History of benign pituitary tumor (04/14/2017) Class 3 severe obesity due to excess calories with serious comorbidity and body mass index (BMI) of 40.0 to 44.9 in adult ([facility]) (04/14/2017) Hyperlipidemia with target LDL less than 130 (01/27/2017) Hyperlipidemia with target LDL less than 130 (02/22/2016) Asthma, mild persistent (02/22/2016) Hypokalemia (02/10/2016) Cervical high risk human papillomavirus (HPV) DNA test positive () Hyperlipidemia with target LDL less than 100 (08/26/2015) Migraine without aura and without status migrainosus, not intractable (08/26/2015) Hyperlipidemia (04/15/2015) Incomplete bladder emptying (12/01/2014) Pain in limb (07/02/2014) Migraine (05/06/2014) GERD (gastroesophageal reflux disease) (05/06/2014) Depression (05/06/2014) NOMI (generalized anxiety disorder) (05/06/2014) Fibromyalgia (05/06/2014) Thoracic or lumbosacral neuritis or radiculitis, unspecified (2013) Obesity, Class II, BMI 35-39.9, isolated (see actual BMI) (04/19/2010) Hypothyroidism (02/08/2010) Hyperpituitarism (HCC) (02/08/2010) Sciatica (11/17/2008) Elevated sedimentation rate (10/22/2008) PITUITARY TUMOR - BENIGN (10/22/2008) Hand joint pain (10/22/2008) Asthma, allergic Current Medications Proventil HFA 108 (90 Base) MCG/ACT Inhalation Aerosol Solution, 2 Puff, Inhalation, Q4H PRN hydroCHLOROthiazide 50 MG Oral Tablet (Hydrodiuril), 50 mg, Oral, Daily(AM) Potassium Chloride Jocy ER 20 MEQ Oral Tablet Extended Release, 20 mEq, Oral, Daily(AM) Gabapentin 600 MG Oral Tablet (Neurontin), 1,200 mg, Oral, BID(AM/PM) Pantoprazole Sodium 40 MG Oral Tablet Delayed Release (Protonix), TAKE ONE TABLET BY MOUTH EVERY DAY 30 MINUTES BEFORE THE FIRST MEAL OF THE DAY. DO NOT CRUSH, CUT OR CHEW traZODone HCl 300 MG Oral Tablet (Desyrel), TAKE ONE TABLET BY MOUTH AT BEDTIME busPIRone HCl 10 MG Oral Tablet (Buspar), TAKE ONE TABLET BY MOUTH EVERY MORNING AND 1 TABLET BEFORE BEDTIME Levothyroxine Sodium 150 MCG Oral Tablet (Levoxyl), TAKE ONE TABLET BY MOUTH DAILY AT LEAST 30 MINUTES PRIOR TO THE FIRST MEAL OF THE DAY OR OTHER MEDS cetirizine (ZYRTEC) 10 MG Tablet, 10 mg, Oral, Daily(AM) DOCUSATE SODIUM 100 MG PO CAPS, 100 mg, Oral, Daily(AM) MULTI-VITAMIN PO TABS, 1 Tablet, Oral, Daily(AM) GLUCOSAMINE CHONDROITIN COMPLX PO TABS, 1 Tablet, Oral, Daily(AM) HYDROcodone-Acetaminophen 5-325 MG Oral Tablet, 1 Tablet, Oral, Q6H PRN valACYclovir HCl 500 MG Oral Tablet (Valtrex), 500 mg, Oral, TID(AM/NOON/HS) Allergies: Advair diskus [fluticasone-salmeterol], Ibuprofen, Naproxen, Prednisone, Salmeterol, Vanceril [beclomethasone dipropionate], and Zithromax [azithromycin dihydrate] Past Medical History: has a past medical history of Adjustment disorder with anxiety, Anxiety (05/06/2014), Asthma, mild persistent (02/22/2016), Benign neoplasm of pituitary gland (HCC) (2003), Cervical dysplasia, Cervical high risk human papillomavirus (HPV) DNA test positive (10/28/2015), Depression (05/06/2014), DJD (degenerative joint disease), Esophageal reflux, Essential hypertension with goal blood pressure less than 140/90 (03/01/2019), Fatty liver, Fibromyalgia, Generalized osteoarthritis of multiple sites (02/12/2018), GERD (gastroesophageal reflux disease) (05/06/2014), Hand joint pain (2007), Headache(784.0), History of tobacco use (02/27/2018), Hyperlipidemia with target LDL less than 130 (01/27/2017), Hyperpituitarism (HCC), Hyperprolactinemia (HCC) (01/30/2019), Hypothyroidism, Migraine without aura and without status migrainosus, not intractable (08/26/2015), Morbid obesity due to excess calories ([facility]) (04/14/2017), Osteoporosis, Plantar fascial fibromatosis, Sciatica (11/17/2008), Thoracic or lumbosacralneuritis or radiculitis, unspecified, and Vulvar abscess (08/20/2018). Past Surgical History: has a past surgical history that includes information (10/2003); dilation and curettage (d&c); removal of heel spur (Right); Colonoscopy, Diagnostic (Rectum) (N/A, 03/02/2017); laparoscopic gallbladder surgery edu (2001); partial removal,5th metatarsal head (Right, 10/26/2017); colposcopy of cervix w/biopsy (01/2017); colpscpy cervix w/loop elect; Incision & Drainage (08/2018); EGD, Flexible, Diagnostic (01/29/2019); EGD, Flexible, Diagnostic (N/A, 05/19/2020); information; information (12/2019); breast lesion,other,excision (Right, 11/06/2000); Inject Dx/Ther Substance Interlaminar Lumbar/Sacral W Image Guide (N/A, 04/22/2022); Colonoscopy, Diagnostic (Rectum) (N/A, 05/31/2022); and EGD, Flexible, Diagnostic (N/A, 12/06/2022). Social History: reports that she has been smoking cigarettes. She has a 35.00 pack-year smoking history. She has never used smokeless tobacco. She reports that she does not drink alcohol and does not use drugs. Family History: family history includes Cancer in her uncle (unspecified); Diabetes in her mother and another family member; Emphysema in her mother; Heart disease in her grandfather (paternal); Hypertension in her mother; Lung cancer in her grandfather (maternal); pancreatic cancer in an other family member. Anesthesia History Type of Anesthesia: General Endotracheal and Caudal block Anesthesia reaction: No History of surgical complications: No. Personal history of venous thromboembolic disease: No. Physical Exam Vitals: 09/16/23 0923 Temp: 35.9 C (96.6 F) Pulse: 72 Resp: 16 SpO2: 95% BP: 110/70 Physical Exam Constitutional: General: She is not in acute distress. Appearance: Normal appearance. HENT: Head: Normocephalic. Right Ear: Tympanic membrane normal. Left Ear: Tympanic membrane normal. Mouth/Throat: Mouth: Mucous membranes are moist. Pharynx: Oropharynx is clear. No oropharyngeal exudate. Eyes: General: No scleral icterus. Right eye: No discharge. Left eye: No discharge. Conjunctiva/sclera: Conjunctivae normal. Pupils: Pupils are equal, round, and reactive to light. Cardiovascular: Rate and Rhythm: Normal rate and regular rhythm. Heart sounds: No murmur heard. Abdominal: Tenderness: There is no right CVA tenderness or left CVA tenderness. Musculoskeletal: Cervical back: Normal range of motion. No rigidity or tenderness. Lymphadenopathy: Cervical: No cervical adenopathy. Skin: General: Skin is warm and dry. Capillary Refill: Capillary refill takes less than 2 seconds. Coloration: Skin is not jaundiced. Neurological: Mental Status: She is alert. Psychiatric: Mood and Affect: Mood normal. Thought Content: Thought content normal. Judgment: Judgment normal. Labs reviewed and are significant for: Creatinine 1.14, Potassium 4.0 and Haemoglobin 12.3 EKG by my review is significant for: Normal sinus rhythm with no pathologic Q waves. Surgical Risk Scoring Revised Cardiac Risk Index (RCRI) High-risk type of surgery (examples include vascular and any open intraperitoneal or intrathoracic procedures): 0=No History of ischemic heart disease (history of myocardial infarction or positive exercise test, current compliant of chest pain considered to be secondary to myocardia ischemia, use of nitrate therapy, or ECG with pathological Q waves; do not count prior coronary revascularization procedure unless one of the other criteria for ischemic heart disease is present): 0=No History of heart failure: 0=No History of cerebrovascular disease: 0=No Diabetes mellitus requiring treatment with insulin: 0=No Preoperative serum creatinine >2.0 mg/dL (177 micromol/L): 0=No Pt has revised cardiac index score of: No Risk Factors- 0.4% (95% CI: 0.1-0.8) Screening for Obstructive Sleep Apnea (STOP-BANG) Do you Snore loudly? 1=Yes Do you often feel Tired, Fatigued, or Sleep? 1=Yes Has anyone Observed you Stop Breathing or Choking/Gasping during sleep? 0=No Do you have or are you being treated for High Blood Pressure? 1=Yes BMI over 35? 1=Yes Age older than 50? 1=Yes Neck size large? (For males - 17 inches or larger, For females - 16 inches or larger) 0=No Male? 0=No Score 0-2:low risk TERRI, 3-4: intermediate risk of TERRI, 5-8: high risk TERRI 5 Assessment and Plan Pre-op evaluation Functional Assessment They are able to grocery shop. The patient's functional status is good (greater than 4 METS). 1 MET: 4 METs: 4-10 METs: Can take care of self, such as eat, dress or use the toilet. Can walk to block or go up a flight of steps. Can do heavy house work. Surgical Risk Assessment Patient is low medical risk for the listed procedure. No absolute contraindications to proposed surgery and anesthesia. Patient is in optimal condition for proposed surgery and anesthesia. Tavo Hayes MD 09/16/2023 documented in this encounter Nursing Notes * Sana Nuno LPN - 09/16/2023 9:21 AM EST Chief Complaint Patient presents with pre-op exam Surgery 09/25/[address] Guajardo; labs and EKG done 08/18/23 documented in this encounter Plan of Treatment Upcoming Encounters Date Type Department Care Team (Late st Contact Info) Description 09/21/2023 4:15 PM EST Imaging Radiology, [place] [address] [place] [address] 10/06/2023 4:20 PM EST Office Visit [facility] [address] [place] [address] Shanita Felix PA-C [address] [place] [address] 10/23/2023 8:30 PM EST PulmDiagnostic Sleep Lab, [facility] [address] [place] [address] [facility], Sleep Med Night Sleep [address] [place] [address] 06/21/2024 3:45 PM EDT Appointment Radiology, [facility] [address] [place] [phone] 08/23/2024 4:00 PM EDT Office Visit Gynecology/Obstetrics [address] [place] [address] Mari Amezcua PA-C [address] [place] [address] Scheduled Procedures Name Priority Associated Diagnoses Date/Ti [...] exists LUNG CANCER SCREENING - USE SMARTSET 80843 Completed 06/09/2023 GARDASIL-HPV IMMUNIZATION SERIES Aged Out No longer eligible based on patient's age to complete this topic MENINGOCOCCAL (MENACTRA/MENVEO) Aged Out No longer eligible based on patient's age to complete this topic documented as of this encounter Medical Devices Not on filedocumented as of this encounter Visit Diagnoses Diagnosis Pre-op evaluation- Primary Preoperative examination, unspecified documented in this encounter Advance Directives Latest [...] the patient have Health Care Power of Chief Operator Reformer? No Care Teams House Furnishings Supervisor Relationship Specialty Start Date End Date Shanita Felix PA-C [address] [facility] [place] [address] PCP - General Physician Crown Assembly Machine Set Up Mechanic 11/14/14 documented as of this encounter
--- OUTSIDE RECORDS SUMMARY | 2023-09-25 05:22 | External Medical Summary | Summary of Care ---
Author Name Unknown Organization [facility] [address] [place] [address] Phone [phone] Care Team Providers Care Senior Ios Software Engineer Name Role Phone Shanita Felix PA-C Primary Care Provider +1- [phone] Encounter Details Date Type Department Care Team (Latest Contact Info) Description 08/28/2023 2:58 PM EDT - 08/28/2023 11:59 PM EDT Hospital Encounter Radiology, [facility] [address] [place] [address] Arrived Discharge Disposition: Home - Self Care [...] as of this encounter (statuses as of 08/29/2023) Medications Medication Sig Dispensed Refills Start Date [...] MEDS 90 Tablet 3 10/19/2022 10/19/2023 Active HYDROcodone-Acetamino phen 5-325 MG Oral Tablet Take 1 Tablet by mouth every 6 hours as needed for Pain, Moderate. 30 Tablet 0 06/12/2023 Active Pantoprazole Sodium 40 MG Oral Tablet [...] before bedtime. 360 Tablet 3 07/27/2023 Active documented as of this encounter (statuses as of 08/29/2023) Active Problems Problem Noted Date Diagnosed Date [...] as of this encounter (statuses as of 08/29/2023) Resolved Problems Problem Noted Date Diagnosed Date [...] in 2003. Intolerant of Meds. Microadenoma resolved [id number] MRI. Prolactin now 28 off all meds Sciatica 11/17/2008 04/14/2017 Elevated sedimentation rate 10/22/2008 02/11/2011 PITUITARY TUMOR - BENIGN 10/22/200807/2017 Overview: First detected by MRI at [place] in 2000. Variable sizes reported from 2 to 6 mm over the years. Then in January 2011 MRI at [facility] [place], no nodule seen. Hand joint pain 10/22/2008 02/11/2011 Asthma, allergic 04/14/2017 documented as of this encounter (statuses as of 08/29/2023) Immunizations Name Administration Dates Next Due SEASONAL [...] Description 09/16/2023 9:20 AM EST Office Visit [facility] [address] [phone] Tavo Hayes MD [address] [facility] [address] [place] [id number] 10/06/2023 4:20 PM EST Office Visit [place] [address] [place] [address] Shanita Felix PA-C [address] [place] [address] 10/23/2023 8:30 PM EST PulmDiagnostic Sleep Lab, [facility] [address] [place] [address] [facility], Sleep Med Night Sleep [address] [place] [address] 06/21/2024 3:45 PM EDT Appointment Radiology, [address] [phone] 08/23/2024 4:00 PM EDT Office Visit Gynecology/Obstetrics [address] [address] Mari Amezcua PA-C [address] [place] [address] Scheduled Procedures Name Priority Associated Diagnoses Date/Ti [...] exists LUNG CANCER SCREENING - USE SMARTSET 72608 Completed 06/09/2023 GARDASIL-HPV IMMUNIZATION SERIES Aged Out No longer eligible based on patient's age to complete this topic MENINGOCOCCAL (MENACTRA/MENVEO) Aged Out No longer eligible based on patient's age to complete this topic documented as of this encounter Medical Devices Not on filedocumented as of this encounter Procedures Procedure Name Priority Date/Time Associated Diagnosis Comments XR FOOT 3 OR MORE VIEWS Routine 08/28/2023 3:06 PM EDT Right foot pain documented in this encounter Results * XR FOOT 3 OR MORE VIEWS (08/28/2023 3:06 PM EDT) Anatomical Region Laterality Modality Foot, Lower Extremity Digital Ra diography 08/28/2023 4:28 PM EDT Impressions 08/28/2023 4:26 PM EDT IMPRESSION No acute fracture or dislocation. Narrative 08/28/2023 4:26 PM EDT EXAM XR FOOT 3 OR MORE VIEWS-08/28/2023 3:06 pm HISTORY pain TECHNIQUE Three views of the RT foot. COMPARISON 08/01/2022. FINDINGS No acute fracture or dislocation. Redemonstrated postsurgical changes of healed 5th metatarsal osteotomy. Preserved joint spaces. No focal soft tissue swelling. Procedure Note Donta Henry MD - 08/28/2023 EXAM XR FOOT 3 OR MORE VIEWS-08/28/2023 3:06 pm HISTORY pain TECHNIQUE Three views of the RT foot. COMPARISON 08/01/2022. FINDINGS No acute fracture or dislocation. Redemonstrated postsurgical changes ofhealed 5th metatarsal osteotomy. Preserved joint spaces. No focal softtissue swelling. IMPRESSION IMPRESSION No acute fracture or dislocation. Shanita Felix PA-C RADIOLOGY (RAD GEN ERAL) documented in this encounter Advance Directives Latest [...] the patient have Health Care Power of Printed Circuit Board Assembly Repairer? No Care Teams Senior Ios Software Engineer Relationship Specialty Start Date End Date Shanita Felix PA-C [address] [place] [address] [place] [address] PCP - General Physician Buggyman 11/14/14 documented as of this encounter
--- OUTSIDE RECORDS SUMMARY | 2023-09-25 05:22 | External Medical Summary | Summary of Care ---
Author Name Unknown Organization [facility] Address [address] [place] [address] Phone [phone] Care Team Providers Care Public Finance Specialist Name Role Phone Shanita Felix Eben COTTON Primary Care Provider [phone]- [phone] Reason for Referral * Precert (Within 10 days (routine)) - Authorized Specialty Diagnoses / Procedures Referred By Jasbir t Referred To Contact Sleep Disorders Diagnoses TERRI (obstructive sleep apnea) Procedures SLEEP STUDY, W/O CPAP Ilay Quinonez PA-C [address] [place] [address] Referral ID Status Reason Start Date Expiration Date V isits Requested Visits Authorized [id number] Authorized 06/16/2023 999 999 Reason for Visit * Reason Onset Date Comments Test Results 06/16/2023 Encounter Details Date Type Department Care Team Description 06/16/2023 Telephone Sleep Disorders, [facility] [address] [facility] [place] [address] Ilya Quinonez PA-C [address] [facility] [place] [address] Test Results Allergies Active Allergy Reactions Severity Noted Date Comments Fluticasone-Salmeterol 04/03/2014 Increased shortness of breathe. Tolerates albuterol. Ibuprofen 07/21/2004 eyes swell shut Naproxen 07/21/2004 eyes swells shut Prednisone 07/21/2004 Rash. Tolerates injectable steroid. Salmeterol Unknown 08/05/2014 Beclomethasone Dipropionate 04/03/20 14 Increased shortness of breathe Azithromycin Dihydrate 12/01/2008 Feels like hair is standing up on off head documented as of this encounter (statuses as of 07/07/2023) Medications Medication Sig Dispensed Refills Start Date End Date Status GLUCOSAMINE CHONDROITIN COMPLX PO TABS Take 1 Tablet by mouth in the morning. 0 Active DOCUSATE SODIUM 100 MG PO CAPS Take 1 Capsule by mouth in the morning. 0 Active MULTI-VITAMIN PO TABS Take 1 Tablet by mouth in the morning. 0 Active STANDARD TENS DEVIIndications:Thor acic or lumbosacral neuritis or radiculitis, unspecified apply daily as needed to back 1 Device 0 11/14/2014 Active Additional Information Patient not taking.Reported on 10/03/2022 cetirizine (ZYRTEC) 10 MG Tablet Take 1 Tablet by mouth in the morning. 0 Active Potassium Chloride Jocy ER 20 MEQ Oral Tablet Extended ReleaseIndications:H ypopotassemia TAKE ONE TABLET BY MOUTH EVERY DAY 90 Tablet 3 05/20/2022 Active Ventolin HFA 108 (90 Base) MCG/ACT Inhalation Aerosol SolutionIndications: Mild persistent asthma without complication Inhale 2 Puffs by mouth every 4 hours as needed for Cough, Shortness of Breath or Wheezing. 18 g 5 11/25/2022 Active Additional Information Patient not taking.Reported on 06/02/2023 Lidocaine 5 % External Patch (Lidoderm) Place 1 Patch topically on the skin daily. 30 Patch 0 12/22/2022 Active Additional Information Patient not taking.Reported on 06/02/2023 traZODone HCl 300 MG Oral Tablet (Desyrel) TAKE ONE TABLET BY MOUTH AT BEDTIME 90 Tablet 1 04/22/2023 4 Active busPIRone HCl 10 MG Oral Tablet (Buspar)Indications: NOMI (generalized anxiety disorder) TAKE ONE TABLET BY MOUTH EVERY MORNING AND 1 TABLET BEFORE BEDTIME 180 Tablet 2 03/31/2023 4 Active Levothyroxine Sodium 150 MCG Oral Tablet (Levoxyl)Indications :Acquired hypothyroidism TAKE ONE TABLET BY MOUTH DAILY AT LEAST 30 MINUTES PRIOR TO THE FIRST MEAL OF THE DAY OR OTHER MEDS 90 Tablet 3 10/19/2022 3 Active HYDROcodone-Acetamin ophen 5-325 MG Oral Tablet Take 1 Tablet by mouth every 6 hours as needed for Pain, Moderate. 30 Tablet 0 06/12/2023 Active Pantoprazole Sodium 40 MG Oral Tablet Delayed Release (Protonix)Indication s:GERD (gastroesophageal reflux disease) TAKE ONE TABLET BY MOUTH EVERY DAY 30 MINUTES BEFORE THE FIRST MEAL OF THE DAY. DO NOT CRUSH, CUT OR CHEW 90 Tablet 1 06/12/2023 4 Active Gabapentin 600 MG Oral Tablet (Neurontin)Indicatio ns:Other chronic pain TAKE TWO TABLETS BY MOUTH EVERY MORNING AND TAKE TWO TABLETS BY MOUTH AT BEDTIME 360 Tablet 3 06/28/2022 3 documented as of this encounter (statuses as of 07/07/2023) Active Problems Problem Noted Date COPD, group B, by GOLD 2017 classificati on 12/19/2022 Overview: Per COPD GOLD Classification Emphysema lung 04/23/2020 Major depressive disorder, recurrent, un specified 09/25/2019 TERRI (obstructive sleep apnea) 03/13/2019 HTN, goal below 140/90 03/01/2019 Hyperprolactinemia 01/30/2019 Fatty liver 01/04/2019 Generalized osteoarthritis of multiple s ites 02/12/2018 Allergy to NSAIDs 02/12/2018 History of benign pituitary tumor 2016 Class 3 severe obesity due t o excess calories with serious comorbidity and body mass index (BMI) of 40.0 to 44.9 in adult 04/14/2017 Hyperlipidemia with target LDL less than 130 01/27/2017 Asthma, mild persistent 02/22/2016 Hypokalemia 02/10/2016 Migraine without aura and without status migrainosus, not intractable 08/26/2015 GERD (gastroesophageal reflux disease) 0 05/06/2014 NOMI (generalized anxiety disorder) 05/06 Fibromyalgia 05/06/2014 Hypothyroidism 02/08/2010 documented as of this encounter (statuses as of 07/07/2023) Resolved Problems Problem Noted Date Resolved Date Recurrent major depressive disorder, in partial remission 11/25/2022 12/15/2022 Class 3 severe obesity due t o excess calories with serious comorbidity and body mass index (BMI) of 45.0 to 49.9 in adult 02/10/2021 03/31/2023 Recurrent major depressive disorder, in partial remission 04/23/2020 10/28/2020 History of tobacco use 02/27/2018 0 BMI 40.0-44.9, adult 02/12/2018 02/18/2021 Body mass index (BMI) of 40.0 to 44.9 in adult 1 08/17/2017 Overview: Per Obesity protocol #1 Hyperlipidemia with target LDL less than 130 02/22/2016 Overview: ICD-10 update of inactive term Cervical high risk human pap illomavirus (HPV) DNA test positive 10/28/2015 04/14/2017 Overview: Also 2013, with colposcopy and negative biopsy. Again in 2014, needs 2 negative co-tests to return to normal screening. Hyperlipidemia with target LDL less than 100 02/22/2016 Overview: ICD-10 update of inactive term Hyperlipidemia 04/15/2015 08/26/2015 Incomplete bladder emptying 12/01/2014 06/0 07/2017 Pain in limb 07/02/2014 01/27/2017 Migraine 05/06/2014 08/26/2015 Depression 05/06/2014 10/10/2019 Thoracic or lumbosacral neuritis or radiculitis, unspecified 05/06/2014 04/14/2017 Obesity, Class II, BMI 35-39.9, isolated (see ac tual BMI) 04/19/2010 04/14/2017 Overview: Per Obesity Protocol, #19 Hyperpituitarism 02/08/2010 01/27/2017 Overview: Prolactin level 111 in 2003. Intolerant of Meds. Microadenoma resolved [id number] MRI. Prolactin now 28 off all meds Sciatica 11/17/2008 04/14/2017 Elevated sedimentation rate 10/22/2008 04/0 06/2011 PITUITARY TUMOR - BENIGN 10/22/2008 017 Overview: First detected by MRI at [place] in 2000. Variable sizes reported from 2 to 6 mm over the years. Then in January 2011 MRI [place] [facility] nodule seen. Hand joint pain 10/22/2008 02/11/2011 Asthma, allergic 04/14/2017 documented as of this encounter (statuses as of 07/07/2023) Immunizations Name Administration Dates Next Due Seasonal Influenza, PF, 6 mo ns & Above, IM , (Flulaval) 08/17/2017 Seasonal Influenza, Split, I IV3, With [...] = 0.6 oz pur e alcohol) SOCIAL Food Insecurity Answer Date Recorded Within the past 12 months, y ou worried that your food would run out before you got money to buy more. Never true 11/21/2022 Within the past 12 months, t he food you bought just didn't last and you didn't have money to get more. Never true 11/21/2022 Sex Assigned at Date Recorded Female 01/30/2019 2:52 PM E DT Job Start Date Occupation Industry Not on [...] encounter Miscellaneous Notes * Telephone Encounter - TERRI Edmond - 07/07/2023 10:00 AM EDT LVM #2 to schedule in-lab sleep study * Telephone Encounter - TERRI Edmond - 06/28/2023 10:33 AM EDT Left VM to return call to schedule PSG. Office # given. * Telephone Encounter - Ilya Quinonez PA-C - 06/16/2023 3:24 PM EDT LMOM regarding negative WP study. Patient has a h/o TERRI and is very sleepy. Need to get PSG. Made aware booked out several months. Order placed, please contact patient to schedule, thanks. documented in this encounter Plan of Treatment Upcoming Encounters Date Type Specialty Care Team Description 07/21/2023 Office Visit Gynecology Obstetrics Mari Amezcua PA-C [address] [facility] [place] [id number] 10/06/2023 Office Visit Family Medicine Shanita Felix PA-C [address] [place] [address] [place] [address] 06/21/2024 Appointment Radiology Scheduled Orders Name Type Priority Associated Diagnoses Orde r Schedule SLEEP STUDY, W/O CPAP Procedures Routine TERRI (obstructive sleep apnea) Ordered: 06/16/2023 Scheduled Procedures Name Priority Associated Diagnoses Date/Ti me COLONOSCOPY FLEXIBLE PROXIMA L DIAGNOSTIC Recall History of colonic polyps Health Maintenance Due Date Last Done Comments COVID-19 Vaccine (#1) 1969 Pneumococcal Vaccine: Pediatrics (0 to 5 Years) and At-Risk Patients (6 to 64 Years) (1 - PCV) 1975 Alpha-1 Antitrypsin 1987 HPV/Co-Test 1999 DISCUSS TOBACCO CESSATION (REFER TO SMARTSET #3291) 08/26/2016 08/26/2015 (Refused) Zoster Vaccines (1 of 2) 2019 Depression Screening, Annual for Pts 12 and Over 07/09/2022 07/09/2021, 08/26/2015 (Discussed) Influenza Vaccine (FLU shot) (#1) 2023 08/17/2017, 08/28/2014, 09/10/2012, Additional history exists O2 ASSESSMENT COMPLETED IN PAST YEAR FOR COPD 12/06/2023 12/06/2022 GFR 03/04/2024 03/04/2023, 03/06, 11/19/2021, Additional history exists TSH 03/04/2024 03/04/2023, 03/06, 04/02/2021, Additional history exists Mammogram 06/16/2024 06/16/2023, 03/2022, 06/04/2021, Additional history exists COLONOSCOPY-EVERY 3 YRS AGES 18-100 05/31/2025 05/31/2022, 05/31/2022, 03/02/2017, Additional history exists Cervical Cancer Screening 07/15/2025 Pap Smear 07/15/2025 07/15/2022, 02/05, 12/20/2016, Additional history exists Albumin/Creatinine Ratio 03/04/2026 03/04/2023, 03/06 Diabetes Screening 03/04/2026 03/04/2023, 0 03/04/2023, 03/18/2022, Additional history exists Lipid Panel 03/04/2028 03/04/2023, 03/06, 04/02/2021, Additional history exists DTaP,Tdap,and Td Vaccines (3 - Td or Tdap) 05/26/2031 05/26/2021, 07/29/2010 Hepatitis C Screening Completed 01/04/2019 COLONOSCOPY-EVERY 5 YRS AGES 18-100 Discontinued 05/31/2022, 05/31/2022, 03/02/2017, Additional history exists LUNG CANCER SCREENING - USE SMARTSET 22514 Completed 06/09/2023 GARDASIL-HPV IMMUNIZATION SERIES Aged Out No longer eligible based on patient's age to complete this topic MENINGOCOCCAL (MENACTRA/MENVEO) Aged Out No longer eligible based on patient's age to complete this topic documented as of this encounter Medical Devices Not on filedocumented as of this encounter Visit Diagnoses Diagnosis TERRI (obstructive sleep apnea)- Primary Obstructive sleep apnea (adult) (pediatric) documented in this encounter Advance Directives Latest [...] the patient have Health Care Power of Program Strategist? No Care Teams Public Finance Specialist Relationship Specialty Start Date End Date Shanita Felix PA-C [address] [facility] [address] [place] [address] PCP - General Physician Braddisher 11/14/14 documented as of this encounter
--- OUTSIDE RECORDS SUMMARY | 2023-09-25 05:22 | External Medical Summary ---
Author Name Unknown Address Unknown Organization K01:[facility] [address] [facility] [place] [address] Laboratory Report Ordering Provider Test Date Status LONA TORO 07/21/2023 15:54:39 Final Observation Date Value Abnormality Reference (Units ) Status Chayito glabrata DNA [Presence] in Vaginal fluid by VILLA with probe detection 07/21/2023 15:54:39 Negative Negative Final Chayito glabrata not detecte d by PCR. Chayito albicans DNA [Presen ce] in Vaginal fluid by VILLA with probe detection 07/21/2023 15:54:39 Negative Negative Final Chayito albicans not detecte d by PCR. Trichomonas vaginalis DNA [P resence] in Vaginal fluid by VILLA with probe detection 07/21/2023 15:54:39 Negative Negative Final Trichomonas vaginalis not de tected by PCR. Gardnerella vaginalis DNA [Presence] in Vaginal fluid by Probe with signal amplification 07/21/2023 15:54:39 Positive Abnormal Ne gative Final Gardnerella vaginalis detect ed by PCR.

Organism may be associated with colonization. Clinical correlation needed.
This test was developed and its performance characteristics determined by [employer]. It has not been cleared or approved by the U.S. Food and Drug Administration (FDA). FDA does not require this test to go through premarket FDA review. This test is used for clinical purposes. It should not be regarded as investigational or for research. This laboratory is certified under the Clinical Laboratory Improvement Amendments (CLIA) as qualified to perform high complexity clinical laboratory testing.

The validation of self-collected vaginal swabs for this assay was developed and performance characteristics determined by [employer]. The validation of alternate specimen types has not been cleared or approved by the U.S. Food and Drug Administration (FDA). It has been determined that such clearance or approval is not necessary.

null Performing Location [facility] [place] [facility] Eben [address]. [facility] [address]
--- OUTSIDE RECORDS SUMMARY | 2023-09-25 05:22 | External Medical Summary | Summary of Care ---
Author Name Unknown Organization [facility] Address [address] [place] [address] Phone [phone] Care Team Providers Care Registered Health Nurse Name Role Phone Isidro Shanita Treadwell PA-C Primary Care Provider +1- [phone] Reason for Visit * Reason Comments Fall Hand Pain Ankle Pain Encounter Details Date Type Department Care Team Description 08/20/2023 Convenient Care Visit [facility] [address] [place] [address] Cody Champion PA-C [address] [place] [id number] Sprain and strain of right wrist*; Sprain and strain of right ankle Allergies Active Allergy Reactions Severity Noted Date Comments Fluticasone-Salmeterol 04/03/2014 Increased shortness of breathe. Tolerates albuterol. Ibuprofen 07/21/2004 eyes swell shut Naproxen 07/21/2004 eyes swells shut Prednisone 07/21/2004 Rash. Tolerates injectable steroid. Salmeterol Unknown 08/05/2014 Beclomethasone Dipropionate 04/03/20 14 Increased shortness of breathe Azithromycin Dihydrate 12/01/2008 Feels like hair is standing up on off head documented as of this encounter (statuses as of 08/20/2023) Medications Medication Sig Dispensed Refills Start Date [...] as of this encounter (statuses as of 08/20/2023) Active Problems Problem Noted Date Food insecurity 08/14/2023 Overview: Per [facility] Protocol COPD, group B, by GOLD 2017 classificati [...] as of this encounter (statuses as of 08/20/2023) Resolved Problems Problem Noted Date Resolved Date [...] Hyperlipidemia 04/15/2015 08/26/2015 Incomplete bladder emptying 12/01/2014 060 07/2017 Pain in limb 07/02/2014 01/27/2017 Migraine 05/06/2014 08/26/2015 Depression 05/06/2014 10/10/2019 Thoracic or lumbosacral neuritis or radiculitis, unspecified 05/06/2014 04/14/2017 Obesity, Class II, BMI 35-39.9, isolated (see ac tual BMI) 04/19/2010 04/14/2017 Overview: Per Obesity Protocol, #19 Hyperpituitarism 02/08/2010 01/27/2017 Overview: Prolactin level 111 in 2003. Intolerant of Meds. Microadenoma resolved [id number] MRI. Prolactin now 28 off all meds Sciatica 11/17/2008 04/14/2017 Elevated sedimentation rate 10/22/2008 04/0 06/2011 PITUITARY TUMOR - BENIGN 10/22/2008 017 Overview: First detected by MRI at [place] in 2000. Variable sizes reported from 2 to 6 mm over the years. Then in January 2011 MRI at [facility], no nodule seen. Hand joint pain 10/22/2008 02/11/2011 Asthma, allergic 04/14/2017 documented as of this encounter (statuses as of 08/20/2023) Immunizations Name Administration Dates Next Due SEASONAL [...] before you got money to buy more. Sometimes true 2022 Within the past 12 months, t he food you bought just didn't last and you didn't have money to get more. Never true 10/2023 Sex Assigned at Date Recorded Female 01/30/2019 2:52 PM E DT Job Start Date Occupation Industry Not on file Not on file Not on file documented as of this encounter Last Filed Vital Signs Vital Sign Reading Time Taken Comments Blood Pressure 130/84 08/20/2023 3:23 PM EDT Pulse 92 08/20/2023 3:23 PM EDT Temperature 36.9 C (98.4 F) 08/20/2023 3:23 PM ED T Respiratory Rate 16 08/20/2023 3:23 PM EDT Oxygen Saturation 95% 08/20/2023 3:23 PM EDT Inhaled Oxygen Concentration - - Weight 115.2 kg (254 lb) 08/20/2023 3:23 PM EDT Height 162.6 cm (5' 4") 08/20/2023 3:23 PM EDT Body Mass Index 43.6 08/20/2023 3:23 PM EDT documented in this [...] No 08/16/2018 documented as of this encounter Patient Instructions * Patient Instructions* Cody Champion PA-C - 08/20/2023 3:36 PM EDT Likely sprain injuries Go to [facility] for xrays We will reach out w/ results If no fracture recommend rest, ice, over counter medications If fracture seen will refer to Ortho documented in this encounter Progress Notes * Cody Champion PA-C - 08/20/2023 3:38 PM EDT Images from the original note were not included. History of Present Illness Dona Vee is a 53 year old female that presents for Fall, Hand Pain, and Ankle Pain Slipped and twisted r ankle, fell on r wrist- mild pain in b areas- no limitation- doesnt feel she needs crutches- can walk fine Fall Hand Pain Ankle Pain Pertinent negatives include no inability to bear weight. Upper Extremity Pain The pain is present in the right wrist. This is a new problem. The current episode started today. There has been a history of trauma. The problem occurs constantly. The problem has been unchanged. The pain is at a severity of 3/10. The pain is moderate. Associated symptoms include joint swelling. Pertinent negatives include no inability to bear weight or limited range of motion. Lower Extremity Pain The pain is present in the right ankle. This is a new problem. The current episode started today. There has been a history of trauma. The problem occurs constantly. The problem has been unchanged. The pain is at a severity of 3/10. The pain is moderate. Associated symptoms include joint swelling. Pertinent negatives include no inability to bear weight or limited range of motion. The symptoms are aggravated by activity. The treatment provided no relief. Physical Exam Vitals: 08/20/23 1523 Temp: 36.9 C (98.4 F) Pulse: 92 Resp: 16 SpO2: 95% BP: 130/84 BMI: 43.58 Physical Exam Vitals and nursing note reviewed. Constitutional: Appearance: Normal appearance. Cardiovascular: Rate and Rhythm: Normal rate and regular rhythm. Comments: Good radial pulse Musculoskeletal: Comments: Mild TTP R wrist radial No snuffbox ttp Full ROM- no limitation Swelling, ttp R ankle lateral over malleolus- full ROM- no weakness or laxity Skin: Coloration: Skin is not jaundiced or pale. Findings: No bruising, erythema, lesion or rash. Neurological: Mental Status: She is alert. I have reviewed the following results: Assessment and Plan Sprain and strain of right wrist (Primary) - XR WRIST 3 OR MORE VIEWS Sprain and strain of right ankle - XR ANKLE 3 OR MORE VIEWS Follow Up: Return if symptoms worsen or fail to improve. Likely sprain injuries Go to [facility] for xrays We will reach out w/ results If no fracture recommend rest, ice, over counter medications If fracture seen will refer to Ortho Wrap-Up Follow Up: Return if symptoms worsen or fail to improve. Time: I spent a total of 10-19 minutes (exact time 15 mins) on the date of service in preparation, delivery, and documentation of the care provided to Dona Vee excluding any time spent in the performance of separately billed services. documented in this encounter Nursing Notes * SHELIA Torres - 08/20/2023 3:25 PM EDT Dona Vee is a 53 year old female who presents to walk-in clinic today complaining of Chief Complaint Patient presents with Fall Hand Pain Ankle Pain Main Symptoms: R hand pain and R ankle/foot pain Cause: Fall Was this an injury Yes and did it happen at work? No Pain is /10. How long: Onset today Tried: Denies Pt accompanied by: Self documented in this encounter Plan of Treatment Upcoming Encounters Date Type Specialty Care Team Description 09/16/2023 Office Visit Family Medicine Tavo Hayes MD [address] [facility] [address] [place] [address] 10/06/2023 Office Visit Family Medicine Shanita Felix PA-C [address] [facility] [address] [place] [address] 10/23/2023 PulmDiagnostic Sleep Disorders Gl, Sleep Med Night Sleep [address] [place] [address] 06/21/2024 Appointment Radiology 08/23/2024 Office Visit Gynecology Obstetrics Seven, Mari Bridges PA-C [address] [place] [phone] Pending Results Name Type Priority Associated Diagnoses Date /Time XR WRIST 3 OR MORE VIEWS Medical Imaging STAT Sprain and strain of right wrist 08/20/2023 3:53 PM EDT XR ANKLE 3 OR MORE VIEWS Medical Imaging STAT Sprain and strain of right ankle 08/20/2023 3:53 PM EDT Scheduled Procedures Name Priority Associated Diagnoses Date/Ti [...] FOR COPD 12/06/2023 12/06/2022 GFR 03/04/2024 03/04/2023, 05/01/2022, 11/19/2021, Additional history exists TSH 03/04/2024 03/04/2023, 03/06, 04/02/2021, Additional history exists Mammogram 06/16/2024 06/16/2023, 03/2022, 06/04/2021, Additional history exists COLONOSCOPY-EVERY 3 YRS AGES 18-100 05/31/2025 05/31/2022, 05/31/2022, 03/02/2017, Additional history exists Albumin/Creatinine Ratio 03/04/2026 03/04/2023, 03/06 Diabetes Screening 03/04/2026 03/04/2023, 0 03/04/2023, 03/18/2022, Additional history exists Pap Smear 07/21/2026 07/21/2023, 07/2022, 02/27/2018, Additional history exists Lipid Panel 03/04/2028 03/04/2023, 03/06, 04/02/2021, Additional history exists Cervical Cancer Screening 07/21/2028 HPV/Co-Test 07/21/2028 07/21/2023 DTaP,Tdap,and Td Vaccines (3 - Td or Tdap) 05/26/2031 05/26/2021, 07/29/2010 COLONOSCOPY-EVERY 5 YRS AGES 18-100 Discontinued 05/31/2022, 05/31/2022, 03/02/2017, Additional history exists LUNG CANCER SCREENING - USE SMARTSET 41139 Completed 06/09/2023 GARDASIL-HPV IMMUNIZATION SERIES Aged Out No longer eligible based on patient's age to complete this topic MENINGOCOCCAL (MENACTRA/MENVEO) Aged Out No longer eligible based on patient's age to complete this topic documented as of this encounter Medical Devices Not on filedocumented as of this encounter Visit Diagnoses Diagnosis Sprain and strain of right wrist- Primary Sprain and strain of right ankle documented in this encounter Advance Directives Latest [...] the patient have Health Care Power of Candy Counter Clerk? No Care Teams Registered Health Nurse Relationship Specialty Start Date End Date Shanita Felix, PAGamalielC [address] [facility] [address] [place] [address] PCP - General Physician Mail Handler Sorter 11/14/14 documented as of this encounter
--- OUTSIDE RECORDS SUMMARY | 2023-09-25 05:22 | External Medical Summary | Summary of Care ---
Author Name Unknown Organization [facility] Address [address] [place] [address] Phone [phone] Care Team Providers Care Counter Clerk [employer] Name Role Phone Shanita Felix Eben COTTON Primary Care Provider +1- [phone] Reason for Referral * Precert (Within 10 days (routine)) - Authorized Specialty Diagnoses / Procedures Referred By Jasbir t Referred To Contact Sleep Disorders Diagnoses TERRI (obstructive sleep apnea) Procedures SLEEP STUDY, W/O CPAP Ilya Quinonez PA-C [address] [place] [address] Referral ID Status Reason Start Date Expiration Date V isits Requested Visits Authorized [id number] Authorized 06/16/2023 999 999 Reason for Visit * Reason Onset Date Comments Test Results 06/16/2023 Encounter Details Date Type Department Care Team Description 06/16/2023 Telephone Sleep Disorders, [facility] [address] [facility] [place] [address] Ilya Quinonez PA-C [address] [facility] [place] [address] Test Results Allergies [...] as of this encounter (statuses as of 06/28/2023) Medications Medication Sig Dispensed Refills Start Date [...] MEDS 90 Tablet 3 10/19/2022 3 Active Gabapentin 600 MG Oral Tablet (Neurontin)Indicatio ns:Other chronic pain TAKE TWO TABLETS BY MOUTH EVERY MORNING AND TAKE TWO TABLETS BY MOUTH AT BEDTIME 360 Tablet 3 06/28/2022 3 Active HYDROcodone-Acetamin ophen 5-325 MG Oral [...] CHEW 90 Tablet 1 06/12/2023 4 Active documented as of this encounter (statuses as of 06/28/2023) Active Problems Problem Noted Date COPD, group [...] as of this encounter (statuses as of 06/28/2023) Resolved Problems Problem Noted Date Resolved Date [...] in 2003. Intolerant of Meds. Microadenoma resolved [id number] MRI. 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 Variable sizes reported from 2 to 6 mm over the years. Then [place] 2011 [place] [facility] [place]. Hand joint pain 10/22/2008 02/11/2011 Asthma, allergic 04/14/2017 documented as of this encounter (statuses as of 06/28/2023) Immunizations Name Administration Dates Next Due Seasonal [...] Visit Gynecology Obstetrics Mari Amezcua PA-C [address] [facility] [place] [address] 10/06/2023 Office Visit Family Medicine Shanita Felix PA-C [address] [place] [address] [place] [address] 06/21/2024 Appointment Radiology Scheduled Orders Name Type [...] 1999 DISCUSS TOBACCO CESSATION (REFER TO SMARTSET #9297) 08/26/2016 08/26/2015 (Refused) Zoster Vaccines (1 of [...] 06/16/2024 06/16/2023, 0803/2022, 06/04/2021, Additional history exists COLONOSCOPY-EVERY 3 YRS [...] exists LUNG CANCER SCREENING - USE SMARTSET 38235 Completed 06/09/2023 GARDASIL-HPV IMMUNIZATION SERIES Aged Out [...] the patient have Health Care Power of Medical Assistant Dermatology? No Care Teams Counter Clerk [employer] Relationship Specialty Start Date End Date Shanita Felix, NASHC [address] [facility] [address] [place] [address] PCP - General Physician Brick Yard Hand 11/14/14 documented as of this encounter
--- OUTSIDE RECORDS SUMMARY | 2023-09-25 05:22 | External Medical Summary | Summary of Care ---
Author Name Unknown Organization [facility] Address [address] [place] [address] Phone [phone] Care Team Providers Care Wash Box Operator Name Role Phone Shanita Felix PA-C Primary Care Provider +1- [phone] Reason for Visit * Reason Onset Date Comments Referral 09/06/2023 Encounter Details Date Type Department Care Team (Late st Contact Info) Description 09/06/2023 Telephone [place] [address] [place] [address] [phone] Shanita Felix PA-C [address] [place] [address] [place] [address] Referral Allergies Active Allergy Reactions Criticality Noted [...] in 2003. Intolerant of Meds. Microadenoma resolved [id number] MRI. Prolactin now 28 off all meds Sciatica 11/17/2008 04/14/2017 Elevated sedimentation rate 10/22/2008 02/11/2011 PITUITARY TUMOR - BENIGN 10/22/200807/2017 Overview: First detected by MRI at [place] in 2000. Variable sizes reported from 2 to 6 mm over the years. Then in January 2011 MRI [place] [facility] [place] no nodule seen. Hand joint pain 10/22/2008 [...] encounter Miscellaneous Notes * Telephone Encounter - Lashon Mohan, TERRI - 09/07/2023 1:15 PM EDT Patient called [...] for the MRI of her ankle the direct customer service representative stated the referral should state "Foot and Ankle" right now the referral has "Ankle" only. Please advise. If there are any questions please call Dona at [phone] Thank you. TERRI Alcaraz documented in this encounter Plan of Treatment Upcoming Encounters Date Type Department Care Team (Late st Contact Info) Description 09/16/2023 9:20 AM EST [facility] [address] [facility] [place] [phone] Tavo Hayes MD [address] [facility] [address] [place] [address] 10/06/2023 4:20 PM EST [facility] [address] [place] [address] Shanita Felix PA-C [address] [facility] [address] [place] [address] 10/23/2023 8:30 PM EST PulmDiagnostic Sleep Lab, [facility] [address] Glh, Sleep [facility] [address] 06/21/2024 3:45 PM EDT Appointment Radiology, [facility] [address] [facility] [phone] 08/23/2024 4:00 PM EDT Office Visit Gynecology/Obstetrics [facility] [address] [facility] [address] Mari Amezcua PA-C [address] [place] [address] Scheduled Procedures Name Priority Associated Diagnoses Date/Ti [...] FOR COPD 12/06/2023 12/06/2022 TSH 03/04/2024 03/04/2023, 0501/2022, 04/02/2021, Additional history exists Mammogram 06/16/2024 06/16/2023, [...] exists LUNG CANCER SCREENING - USE SMARTSET 42840 Completed 06/09/2023 GARDASIL-HPV IMMUNIZATION SERIES Aged Out [...] the patient have Health Care Power of Animal Care Supervisor? No Care Teams Wash Box Operator Relationship Specialty Start Date End Date Shanita Felix, PAGamalielC [address] [facility] [address] [place] [address] PCP - General Physician Personal Trainer 11/14/14 documented as of this encounter
--- OUTSIDE RECORDS SUMMARY | 2023-09-25 05:22 | External Medical Summary | Summary of Care ---
Author Name Unknown Organization [facility] Address [address] [place] [address] Phone [phone] Care Team Providers Care Back End Architect Name Role Phone Shanita Felix PA-C Primary Care Provider +1- [phone] Reason for Visit * Reason Onset Date Comments Referral 09/06/2023 Encounter Details Date Type Department Care Team (Late st Contact Info) Description 09/06/2023 Telephone [place] [address] [place] [address] [phone] Shanita Felix PA-C [address] [place] [address] [place] [address] Referral Allergies Active Allergy Reactions Criticality Noted [...] in 2003. Intolerant of Meds. Microadenoma resolved [id number] MRI. Prolactin now 28 off all meds Sciatica 11/17/2008 04/14/2017 Elevated sedimentation rate 10/22/2008 02/11/2011 PITUITARY TUMOR - BENIGN 10/22/200807/2017 Overview: First detected by MRI at [place] in 2000. Variable sizes reported from 2 to 6 mm over the years. Then in January 2011 MRI at [facility] [place], no nodule seen. Hand joint pain 10/22/2008 [...] encounter Miscellaneous Notes * Telephone Encounter - Param TERRI Tracy - 09/07/2023 12:42 PM EDT Called Mri [...] for the MRI of her ankle the sales and service representative stated the referral should state "Foot and Ankle" right now the referral has "Ankle" only. Please advise. If there are any questions please call Dona at [phone] Thank you. TERRI Alcaraz documented in this encounter Plan of Treatment Upcoming Encounters Date Type Department Care Team (Late st Contact Info) Description 09/16/2023 9:20 AM EST Office Visit [facility] [address] [facility] [place] [phone] Tavo Hayes MD [address] [facility] [address] [place], [place] [address] [address] 10/06/2023 4:20 PM EST Office Visit [facility] [address] [place] [address] Shanita Felix PA-C [address] [facility] [address] [place] [address] 10/23/2023 8:30 PM EST PulmDiagnostic Sleep Lab, [facility] [address] [facility] [place] [address] Gl, Sleep Med Night Sleep [address] [facility] [place] [address] 06/21/2024 3:45 PM EDT Appointment Radiology, [facility] [address] [facility] [place] [phone] 08/23/2024 4:00 PM EDT Office Visit Gynecology/Obstetrics [facility] [address] [facility] [place] [address] Mari Amezcua PA-C [address] [facility] [place] [address] Scheduled Procedures Name Priority Associated Diagnoses Date/Ti [...] 06/16/2024 06/16/2023, 03/2022, 06/04/2021, Additional history exists GFR 08/18/2024 08/18/2023, 02/05, 03/18/2022, Additional history exists COLONOSCOPY-EVERY 3 YRS AGES 18-100 05/31/2025 05/31/2022, 05/31/2022, 03/02/2017, Additional history exists Albumin/Creatinine Ratio 03/04/2026 03/04/2023, 0501/2022 Pap Smear 07/21/2026 07/21/2023, 0907/2022, 02/27/2018, Additional history exists Diabetes Screening 08/18/2026 08/18/2023, 0 03/04/2023, 03/04/2023, Additional history exists Lipid Panel 03/04/2028 03/04/2023, 0501/2022, 04/02/2021, Additional history exists Cervical Cancer Screening 07/21/2028 HPV/Co-Test 07/21/2028 07/21/2023 DTaP,Tdap,and Td Vaccines (3 - Td or Tdap) 05/26/2031 05/26/2021, 07/29/2010 COLONOSCOPY-EVERY 5 YRS AGES 18-100 Discontinued 05/31/2022, 05/31/2022, 03/02/2017, Additional history exists LUNG CANCER SCREENING - USE SMARTSET 01756 Completed 06/09/2023 GARDASIL-HPV IMMUNIZATION SERIES Aged Out [...] the patient have Health Care Power of Ice Platform Supervisor? No Care Teams Back End Architect Relationship Specialty Start Date End Date Shanita Felix, LULA [address] [facility] [place] [address] PCP - General Physician Commercial Production Editor 11/14/14 documented as of this encounter
--- OUTSIDE RECORDS SUMMARY | 2023-09-25 05:22 | External Medical Summary | Summary of Care ---
Author Name Unknown Organization [facility] Address [address] [place] [address] Phone [phone] Care Team Providers Care Insole Presser Name Role Phone Shanita Feilx PA-C Primary Care Provider +1- [phone] Encounter Details Date Type Department Care Team Description 08/20/2023 Hospital Encounter Radiology, [address] [phone] Arrived Allergies Active Allergy Reactions Severity Noted Date Comments Fluticasone-Salmeterol 04/03/2014 Increased shortness of breathe. Tolerates albuterol. Ibuprofen 07/21/2004 eyes swell shut Naproxen 07/21/2004 eyes swells shut Prednisone 07/21/2004 Rash. Tolerates injectable steroid. Salmeterol Unknown 08/05/2014 Beclomethasone Dipropionate 04/03/20 14 Increased shortness of breathe Azithromycin Dihydrate 12/01/2008 Feels like hair is standing up on off head documented as of this encounter (statuses as of 08/21/2023) Medications Medication Sig Dispensed Refills Start Date [...] as of this encounter (statuses as of 08/21/2023) Active Problems Problem Noted Date Food insecurity [...] as of this encounter (statuses as of 08/21/2023) Resolved Problems Problem Noted Date Resolved Date [...] in 2003. Intolerant of Meds. Microadenoma resolved [id number] MRI. 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 Variable sizes reported from 2 to 6 mm over the years. [place] [facility] [place]. Hand joint pain 10/22/2008 02/11/2011 Asthma, allergic 04/14/2017 documented as of this encounter (statuses as of 08/21/2023) Immunizations Name Administration Dates Next Due SEASONAL [...] Office Visit Family Medicine Tavo Hayes MD [address] [facility] [address] [facility] [place] [address] 10/06/2023 Office Visit Family Medicine Shanita Felix PA-C [address] [facility] [address] [facility] [place] [address] 10/23/2023 PulmDiagnostic Sleep Disorders Glh, Sleep Med Night Sleep [address] [place] [address] 06/21/2024 Appointment Radiology 08/23/2024 Office Visit Gynecology Obstetrics Mari Amezcua PA-C [address] [place] [address] [place] [address] Scheduled Procedures Name Priority Associated Diagnoses Date/Ti [...] 04/02/2021, Additional history exists Mammogram 06/16/2024 06/16/2023, 08/03/2022, 06/04/2021, Additional history exists COLONOSCOPY-EVERY 3 YRS AGES 18-100 05/31/2025 05/31/2022, 05/31/2022, 03/02/2017, Additional history exists Albumin/Creatinine Ratio 03/04/2026 03/04/2023, 03/06 Diabetes Screening 03/04/2026 03/04/2023, 0 03/04/2023, 03/18/2022, Additional history exists Pap Smear 07/21/2026 07/21/2023, 09/0 07/2022, 02/27/2018, Additional history exists Lipid Panel 03/04/2028 03/04/2023, 03/06, 04/02/2021, Additional history exists Cervical Cancer Screening 07/21/2028 HPV/Co-Test 07/21/2028 07/21/2023 DTaP,Tdap,and Td Vaccines (3 - Td or Tdap) 05/26/2031 05/26/2021, 07/29/2010 COLONOSCOPY-EVERY 5 YRS AGES 18-100 Discontinued 05/31/2022, 05/31/2022, 03/02/2017, Additional history exists LUNG CANCER SCREENING - USE SMARTSET 28683 Completed 06/09/2023 GARDASIL-HPV IMMUNIZATION SERIES Aged Out No longer eligible based on patient's age to complete this topic MENINGOCOCCAL (MENACTRA/MENVEO) Aged Out No longer eligible based on patient's age to complete this topic documented as of this encounter Medical Devices Not on filedocumented as of this encounter Procedures Procedure Name Priority Date/Time Associated Diagnosis Comments XR ANKLE 3 OR MORE VIEWS STAT 08/20/2023 4:01 PM EDT Sprain and strain of right ankle XR WRIST 3 OR MORE VIEWS STAT 08/20/2023 4:01 PM EDT Sprain and strain of right wrist documented in this encounter Results * XR ANKLE 3 OR MORE VIEWS (08/20/2023 4:01 PM EDT) Anatomical Region Laterality Modality Ankle, Lower Extremity Digital R adiography 08/21/2023 2:01 AM EDT Impressions 08/21/2023 1:58 AM EDT IMPRESSION Lateral ankle swelling without acute osseous abnormality. Narrative 08/21/2023 1:58 AM EDT EXAM Right XR ANKLE 3 OR MORE VIEWS - 08/20/2023 4:01 pm HISTORY pain after twisting COMPARISON None TECHNIQUE Right ankle, three views FINDINGS Mild soft tissue swelling over the lateral malleolus. No acute fracture or dislocation. The ankle mortise is congruent. The talar dome is intact. Small plantar calcaneal spur. Joint spaces are preserved. Procedure Note Obed Peters DO - 08/21/2023 EXAM Right XR ANKLE 3 OR MORE VIEWS - 08/20/2023 4:01 pm HISTORY pain after twisting COMPARISON None TECHNIQUE Right ankle, three views FINDINGS Mild soft tissue swelling over the lateral malleolus. No acute fractureor dislocation. The ankle mortise is congruent. The talar dome isintact. Small plantar calcaneal spur. Joint spaces are preserved. IMPRESSION IMPRESSION Lateral ankle swelling without acute osseous abnormality. Cody Champion PA-C RADIOLOGY (RAD G ENERAL) * XR WRIST 3 OR MORE VIEWS (08/20/2023 4:01 PM EDT) Anatomical Region Laterality Modality Upper Extremity, Wrist Digital R adiography 08/21/2023 1:59 AM EDT Impressions 08/21/2023 1:56 AM EDT IMPRESSION No acute osseous abnormality. Narrative 08/21/2023 1:56 AM EDT EXAM Right XR WRIST 3 OR MORE VIEWS - 08/20/2023 4:01 pm HISTORY pain after fall COMPARISON Right wrist radiographs 02/28/2017 TECHNIQUE Right wrist, three views FINDINGS No evidence of acute fracture. Unchanged old, healed 5th metacarpal shaft fracture. No dislocation. Joint spaces are preserved. Normal mineralization. Procedure Note Obed Peters, DO - 08/21/2023 EXAM Right XR WRIST 3 OR MORE VIEWS - 08/20/2023 4:01 pm HISTORY pain after fall COMPARISON Right wrist radiographs 02/28/2017 TECHNIQUE Right wrist, three views FINDINGS No evidence of acute fracture. Unchanged old, healed 5th metacarpal shaftfracture. No dislocation. Joint spaces are preserved. Normalmineralization. IMPRESSION IMPRESSION No acute osseous abnormality. Cody Champion PA-C RADIOLOGY (RAD G ENERAL) documented in this encounter Advance Directives Latest [...] Code 08/16/2018 10:20 PM 08/20/2018 5:17 PM T his order reflects the patients wishes and were consensually agreed upon. Question Answer Comments Discussion of Advance Directives occurred with: Patient Does the patient have a Living Will? No Does the patient have Health Care Power of Wheel Adjuster? No Care Teams Insole Presser Relationship Specialty Start Date End Date Shanita Felix, HOME-C [address] [place] [address] [place] [address] PCP - General Physician Math Interventionist 11/14/14 documented as of this encounter
--- OUTSIDE RECORDS SUMMARY | 2023-09-25 05:22 | External Medical Summary ---
Author Name Unknown Address Unknown Organization K01:[facility] [address] [address] Laboratory Report Ordering Provider Test Date Status LONA TORO 07/21/2023 15:54:00 Final Observation Date Value Abnormality Reference (Units ) Status Human papilloma virus E6+E7 mRNA [Presence] in Cervix by VILLA with probe detection 07/21/2023 15:54:00 Negative Not Applicable Final No high/intermediate-risk Hu man Papillomavirus (HPV E6/E7 messenger RNA) detected by nucleic acid amplification.

This assay looks for high/intermediate risk Human Papillomavirus (HPV E6/E7 messenger RNA) by nucleic acid amplification. This assay includes the qualitative detection of HPV types 16,18,31,33,35,39,45,51,52,56,58,59,66 and 68 from cervical specimens.
This assay has been FDA cleared for Thin prep collection vials.
This assay has not been approved for use as a primary screening test for HPV and should be tested in conjunction with a PAP screen.
If collected utilizing a Surepath vial, the collection and specimen preparation of this test was developed, and its performance characteristics determined by [employer]. It has not been cleared or approved by the U.S. Food and Drug Administration (FDA). The FDA has determined that such clearance or approval is not necessary.
This assay has been performed at [facility], [address] [place] [address], [place]. [address]. Performing Location LABORATORY [address] [address]
--- OUTSIDE RECORDS SUMMARY | 2023-09-25 05:22 | External Medical Summary | Summary of Care ---
Author Name Unknown Organization [facility] Address [address] [place] [address] Phone [phone] Care Team Providers Care Precinct Police Lieutenant Name Role Phone Isidro Shanita Treadwell PA-C Primary Care Provider +1- [phone] Encounter Details Date Type Department Care Team Description 08/18/2023 Result Scan Unspecified Department <No scans attached> Allergies Active Allergy Reactions Severity Noted Date Comments Fluticasone-Salmeterol 04/03/2014 Increased shortness of breathe. Tolerates albuterol. Ibuprofen 07/21/2004 eyes swell shut Naproxen 07/21/2004 eyes swells shut Prednisone 07/21/2004 Rash. Tolerates injectable steroid. Salmeterol Unknown 08/05/2014 Beclomethasone Dipropionate 04/03/20 14 Increased shortness of breathe Azithromycin Dihydrate 12/01/2008 Feels like hair is standing up on off head documented as of this encounter (statuses as of 08/22/2023) Medications Medication Sig Dispensed Refills Start Date [...] as of this encounter (statuses as of 08/22/2023) Active Problems Problem Noted Date Food insecurity [...] as of this encounter (statuses as of 08/22/2023) Resolved Problems Problem Noted Date Resolved Date [...] Hyperlipidemia 04/15/2015 08/26/2015 Incomplete bladder emptying 12/01/2014 0607/2017 Pain in limb 07/02/2014 01/27/2017 Migraine 05/06/2014 08/26/2015 Depression 05/06/2014 10/10/2019 Thoracic or lumbosacral neuritis or radiculitis, unspecified 05/06/2014 04/14/2017 Obesity, Class II, BMI 35-39.9, isolated (see ac tual BMI) 04/19/2010 04/14/2017 Overview: Per Obesity Protocol, #19 Hyperpituitarism 02/08/2010 01/27/2017 Overview: Prolactin level 111 in 2003. Intolerant of Meds. Microadenoma resolved [id number] MRI. 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 Variable sizes reported from 2 to 6 mm over the years. Then in January 2011 [place] at [facility] [place] nodule seen. Hand joint pain 10/22/2008 02/11/2011 Asthma, allergic 04/14/2017 documented as of this encounter (statuses as of 08/22/2023) Immunizations Name Administration Dates Next Due SEASONAL [...] Visit Family Medicine Tavo Hayes MD [address] [facility] [address] [place] [address] [place] [address] 10/06/2023 Office Visit Family Medicine Shanita Felix PA-C [address] [facility] [place] [address] 10/23/2023 PulmDiagnostic Sleep Disorders Gl, Sleep Med Night Sleep [address] [place] [phone] 06/21/2024 Appointment Radiology 08/23/2024 Office Visit Gynecology Obstetrics [place], Mari Bridges PA-C [address] [place] [address] [place] [phone] Scheduled Procedures Name Priority Associated Diagnoses Date/Ti [...] YEAR FOR COPD 12/06/2023 12/06/2022 GFR 03/04/2024 08/18/2023, /2 07/2023, 03/18/2022, Additional history exists TSH 03/04/2024 03/04/2023, 03/06, 04/02/2021, Additional history exists Mammogram 06/16/2024 06/16/2023, 0803/2022, 06/04/2021, Additional history exists COLONOSCOPY-EVERY 3 YRS AGES 18-100 05/31/2025 05/31/2022, 05/31/2022, 03/02/2017, Additional history exists Albumin/Creatinine Ratio 03/04/2026 03/04/2023, 03/06 Diabetes Screening 03/04/2026 08/18/2023, 0 03/04/2023, 03/04/2023, Additional history exists Pap Smear 07/21/2026 07/21/2023, 09/0 07/2022, 02/27/2018, Additional history exists Lipid Panel 03/04/2028 03/04/2023, 03/06, 04/02/2021, Additional history exists Cervical Cancer Screening 07/21/2028 HPV/Co-Test 07/21/2028 07/21/2023 DTaP,Tdap,and Td Vaccines (3 - Td or Tdap) 05/26/2031 05/26/2021, 07/29/2010 COLONOSCOPY-EVERY 5 YRS AGES 18-100 Discontinued 05/31/2022, 05/31/2022, 03/02/2017, Additional history exists LUNG CANCER SCREENING - USE SMARTSET 80332 Completed 06/09/2023 GARDASIL-HPV IMMUNIZATION SERIES Aged Out No longer eligible based on patient's age to complete this topic MENINGOCOCCAL (MENACTRA/MENVEO) Aged Out No longer eligible based on patient's age to complete this topic documented as of this encounter Medical Devices Not on filedocumented as of this encounter Procedures Procedure Name Priority Date/Time Associated Diagnosis Comments EKG SCANNED RESULT 08/18/2023 documented in this encounter Results * EKG SCANNED RESULT (08/18/2023) 08/18/2023 No Physician Data Unknown EKG documented in this encounter Advance Directives Latest [...] the patient have Health Care Power of Qual Field Manager? No Care Teams Precinct Police Lieutenant Relationship Specialty Start Date End Date Shantia Felix PA-C [address] [facility] [address] [facility] [place] [address] PCP - General Physician Radio Electrician 11/14/14 documented as of this encounter
--- OUTSIDE RECORDS SUMMARY | 2023-09-25 05:22 | External Medical Summary | Summary of Care ---
Author Name Unknown Organization [facility] Address [address] [place] [address] Phone [phone] Care Team Providers Care Varitype Operator Name Role Phone Shanita Felix PA-C Primary Care Provider +1- [phone] Encounter Details Date Type Department Care Team Description 08/22/2023 Orders Only [place] [address] [place] [address] Shanita Felix PA-C [facility] [address] [place] [address] Allergies Active Allergy Reactions Severity Noted Date [...] term Hyperlipidemia 04/15/2015 08/26/2015 Incomplete bladder emptying 12/01/201407/2017 Pain in limb 07/02/2014 01/27/2017 Migraine 05/06/2014 08/26/2015 Depression 05/06/2014 10/10/2019 Thoracic or lumbosacral neuritis or radiculitis, unspecified 05/06/2014 04/14/2017 Obesity, Class II, BMI 35-39.9, isolated (see ac tual BMI) 04/19/2010 04/14/2017 Overview: Per Obesity Protocol, #19 Hyperpituitarism 02/08/2010 01/27/2017 Overview: Prolactin level 111 in 2003. Intolerant of Meds. Microadenoma resolved [id number] MRI. Prolactin now 28 off all meds Sciatica 11/17/2008 04/14/2017 Elevated sedimentation rate 10/22/2008 04/0 06/2011 PITUITARY TUMOR - BENIGN 10/22/2008 017 Overview: First detected by MRI at [place] in 2000. Variable sizes reported from 2 [...] Office Visit Family Medicine Tavo Hayes MD [address] [facility] [address] [facility] [place] [address] 10/06/2023 Office Visit Family Medicine Shanita Felix PA-C [address] [facility] [address] [address] 10/23/2023 PulmDiagnostic Sleep Disorders Gl[facility] Sleep Med [facility] [address] [facility] [place] [phone] 06/21/2024 Appointment Radiology 08/23/2024 Office Visit Gynecology Obstetrics Mari Amezcua PA-C [address] [place] [phone] Scheduled Procedures Name Priority Associated Diagnoses Date/Ti [...] FOR COPD 12/06/2023 12/06/2022 GFR 03/04/2024 08/18/2023, /07/2023, 03/18/2022, Additional history exists TSH 03/04/2024 03/04/2023, [...] exists LUNG CANCER SCREENING - USE SMARTSET [id number] Completed 06/09/2023 GARDASIL-HPV IMMUNIZATION SERIES Aged Out No longer eligible based on patient's age to complete this topic MENINGOCOCCAL (MENACTRA/MENVEO) Aged Out No longer eligible based on patient's age to complete this topic documented as of this encounter Medical Devices Not on filedocumented as of this encounter Procedures Procedure Name Priority Date/Time Associated Diagnosis Comments XR CHEST 2 VIEWS Routine 08/18/2023 documented in this encounter Results * XR CHEST 2 VIEWS (08/18/2023) Anatomical Region Laterality Modality Chest Other 08/18/2023 Favian Guajardo MD RADIOLOGY (RAD GEN ERAL) documented in this [...] the patient have Health Care Power of Specialist Icu? No Care Teams Varitype Operator Relationship Specialty Start Date End Date Shnaita Felix, [facility] [address] [facility] [address] [place] [address] PCP - General Physician Manager Of Financial 11/14/14 documented as of this encounter
--- OUTSIDE RECORDS SUMMARY | 2023-09-25 05:22 | External Medical Summary | Summary of Care ---
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 Tolerates albuterol. Ibuprofen 07/21/2004 eyes swell shut Naproxen 07/21/2004 eyes swells shut Prednisone 07/21/2004 Rash. Tolerates injectable steroid. Salmeterol Unknown 08/05/2014 Beclomethasone Dipropionate 04/03/20 14 Increased shortness of breathe Azithromycin Dihydrate 12/01/2008 Feels like hair is standing up on off head documented as of this encounter (statuses as of 07/21/2023) Medications Medication Sig Dispensed Refills Start Date [...] CHEW 90 Tablet 1 06/12/2023 4 Active valACYclovir HCl 500 MG Oral Tablet (Valtrex) Take 1 Tablet by mouth in the morning and 1 Tablet at noon and 1 Tablet before bedtime. For recurrent episode. 54 Tablet 1 06/28/2023 Active documented as of this encounter (statuses as of 07/21/2023) Active Problems Problem Noted Date COPD, group [...] as of this encounter (statuses as of 07/21/2023) Resolved Problems Problem Noted Date Resolved Date [...] in 2003. Intolerant of Meds. Microadenoma resolved [id number] MRI. Prolactin now 28 off all meds Sciatica 11/17/2008 04/14/2017 Elevated sedimentation rate 10/22/2008 04/0 06/2011 PITUITARY TUMOR - BENIGN 10/22/2008 017 Overview: First detected by MRI at [place] in 2000. Variable sizes reported from 2 to 6 mm over the years. Then in January 2011 MRI at [facility], no nodule seen. Hand joint pain 10/22/2008 02/11/2011 Asthma, allergic 04/14/2017 documented as of this encounter (statuses as of 07/21/2023) Immunizations Name Administration Dates Next Due Seasonal [...] Sign Reading Time Taken Comments Blood Pressure 120/68 07/21/2023 2:36 PM EDT Pulse - - Temperature 36.9 C (98.4 F) 07/21/2023 2:36 PM ED T Respiratory Rate - - Oxygen Saturation - - Inhaled Oxygen Concentration - - Weight 115.4 kg (254 lb 6.4 oz) 07/21/2023 2:36 PM EDT Height - - Body Mass Index 43.67 06/02/2023 3:02 PM EDT documented in this encounter Functional [...] as of this encounter Progress Notes * Mari Amezcua PA-C - 07/21/2023 2:49 PM EDT Dona Rafi Vee 07/21/2023 CC: Annual Exam HPI: The patient is a 53 year old female here for her annual exam. Her periods are absent, she is postmenopausal. She has a continued vaginal odor that she notices on occasion. She notices occasional itching/irritation. No significant discharge. Sexually active - never She denies any cramps, pelvic pain, vaginal discharge, urinary symptoms or changes in GI habits. Does do SBE. No breast changes or concerns. Her last Mammogram was 06/16/23 - BIRADS 1. She does have a history of abnormal pap tests. Last pap: 07/15/22 - NILM, +HPV Last colonoscopy was 05/31/22 and she reports polyps were found. Due for repeat in 3-5 years. TOTAL PREG....: NA FULL TERM.....: NA PREMATURE.....: NA AB,INDUCED....: NA AB,SPONTANEOUS: NA ECTOPIC.......: NA MULTIPLE : NA LIVING........: NA Date Labor Sex Delivery Anesth Del Comments GA Length Weight Type Site Past Medical History: Diagnosis Date Adjustment disorder with anxiety Anxiety 05/06/2014 Asthma, mild persistent 02/22/2016 Benign neoplasm of pituitary gland (HCC) 2003 2 mm to 6 mm in size 4625-2537. Not seen 2010 Cervical dysplasia Cervical high risk human papillomavirus (HPV) DNA test positive 10/28/20152012, 2013, 2014; negative colposcopy Depression 05/06/2014 DJD (degenerative joint disease) Esophageal reflux Essential hypertension with goal blood pressure less than 140/90 03/01/2019 Fatty liver Fibromyalgia Generalized osteoarthritis of multiple sites 02/12/2018 GERD (gastroesophageal reflux disease) 05/06/2014 Hand joint pain 2008 Headache(784.0) History of tobacco use 02/27/2018 Hyperlipidemia with target LDL less than 130 01/27/2017 Hyperpituitarism (HCC) Hyperprolactinemia (HCC) 01/30/2019 Hypothyroidism Migraine without aura and without status migrainosus, not intractable 08/26/2015 Morbid obesity due to excess calories (HCC) 04/14/2017 Osteoporosis Plantar fascial fibromatosis Sciatica 11/17/2008 Thoracic or lumbosacral neuritis or radiculitis, unspecified Vulvar abscess 08/20/2018 Past Surgical History: Procedure Laterality Date BREAST LESION,OTHER,EXCISION Right 11/06/2000 neg results COLONOSCOPY, DIAGNOSTIC (RECTUM) N/A 03/02/2017 hyperplastic polyp/recall 5 years/COLONOSCOPY FLEXIBLE PROXIMAL DIAGNOSTIC performed by Kay Dorantes DO at ENDOSCOPY [facility] COLONOSCOPY, DIAGNOSTIC (RECTUM) N/A 05/31/2022 hemorrhoids/two medium sized lipomas ascending colon and cecum/multiple polyps/biopsies show serrated adenomatous polyps/recall 3 years/COLONOSCOPY FLEXIBLE PROXIMAL DIAGNOSTIC performed by Kay Dorantes DO at OR [facility] COLPOSCOPY OF CERVIX W/BIOPSY 01/2017 negative COLPSCPY CERVIX W/LOOP ELECT DILATION AND CURETTAGE (D&C) EGD, FLEXIBLE, DIAGNOSTIC 01/29/2019 normal [facility]x / [facility] EGD, FLEXIBLE, DIAGNOSTIC N/A 05/19/2020 biopsies normal/ESOPHAGOGASTRODUODENOSCOPY (EGD), FLEXIBLE, TRANSORAL, DIAGNOSTIC performed by MD Melanie at OR [facility] EGD, FLEXIBLE, DIAGNOSTIC N/A 12/06/2022 normal/ESOPHAGOGASTRODUODENOSCOPY (EGD), FLEXIBLE, TRANSORAL, DIAGNOSTIC performed by Krzysztof Chand MD at ENDOSCOPY [facility] 08/2018 vulvar abscess INFORMATION 10/2003 LASIK OU INFORMATION right foot bunion removal INFORMATION 12/2019 left knee artroscopy, partial meniscus tear INJECT DX/THER SUBSTANCE INTERLAMINAR LUMBAR/SACRAL W IMAGE GUIDE N/A 04/22/2022 INJECTION SPINE LUMBAR OR SACRAL performed by Trista Keane MD at OR [facility] LAPAROSCOPIC GALLBLADDER SURGERY EDU 2002 PARTIAL REMOVAL,5TH METATARSAL HEAD Right 10/26/2017 OSTECTOMY PARTIAL EXCISION 5TH METATARSAL HEAD BUNIONETTE performed by Jessy Dudley DPM at OR [facility] REMOVAL OF HEEL SPUR Right 2013; plantar fasciectomy Family Hx: Family History Problem Relation Age of Onset Hypertension Mother Diabetes Mother Emphysema Mother Lung cancer Grandfather (Maternal) Heart disease Grandfather (Paternal) Cancer Uncle (Unspecified) bladder Diabetes Other maternal great grandmother Other (pancreatic cancer) Other maternal great grandmother Breast Cancer No significant family history Uterine cancer No significant family history Ovarian cancer No significant family history Colon cancer No significant family history Social History Socioeconomic History Marital status: Single Number of children: 1 Occupational History 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 One grandchild. oDna has one half sister. Social Determinants of Health Food Insecurity: Food Insecurity Present Worried About Running Out of Food in the Last Year: Sometimes true Ran Out of Food in the Last Year: Never true Medications: Current Outpatient Medications Medication Sig Dispense Refill GLUCOSAMINE CHONDROITIN COMPLX PO TABS Take 1 Tablet by mouth in the morning. DOCUSATE SODIUM 100 MG PO CAPS Take 1 Capsule by mouth in the morning. MULTI-VITAMIN PO TABS Take 1 Tablet by mouth in the morning. STANDARD TENS MALACHI apply daily as needed to back (Patient not taking: No sig reported) 1 Device 0 cetirizine (ZYRTEC) 10 MG Tablet Take 1 Tablet by mouth in the morning. Potassium Chloride Jocy ER 20 MEQ Oral Tablet Extended Release TAKE ONE TABLET BY MOUTH EVERY DAY 90 Tablet 3 Ventolin HFA 108 (90 Base) MCG/ACT Inhalation Aerosol Solution Inhale 2 Puffs by mouth every 4 hours as needed for Cough, Shortness of Breath or Wheezing. (Patient not taking: Reported on 06/02/2023) 18 g 5 Lidocaine 5 % External Patch (Lidoderm) Place 1 Patch topically on the skin daily. (Patient not taking: Reported on 06/02/2023) 30 Patch 0 traZODone HCl 300 MG Oral Tablet (Desyrel) TAKE ONE TABLET BY MOUTH AT BEDTIME 90 Tablet 1 busPIRone HCl 10 MG Oral Tablet (Buspar) TAKE ONE TABLET BY MOUTH EVERY MORNING AND 1 TABLET BEFOREBEDTIME 180 Tablet 2 Levothyroxine Sodium 150 MCG Oral Tablet (Levoxyl) TAKE ONE TABLET BY MOUTH DAILY AT LEAST 30 MINUTES PRIOR TO THE FIRST MEAL OF THE DAY OR OTHER MEDS 90 Tablet 3 HYDROcodone-Acetaminophen 5-325 MG Oral Tablet Take 1 Tablet by mouth every 6 hours as needed for Pain, Moderate. 30 Tablet 0 Pantoprazole Sodium 40 MG Oral Tablet Delayed Release (Protonix) TAKE ONE TABLET BY MOUTH EVERY DAY30 MINUTES BEFORE THE FIRST MEAL OF THE DAY. DO NOT CRUSH, CUT OR CHEW 90 Tablet 1 valACYclovir HCl 500 MG Oral Tablet (Valtrex) Take 1 Tablet by mouth in the morning and 1 Tablet atnoon and 1 Tablet before bedtime. For recurrent episode. 54 Tablet 1 No current facility-administered medications for this visit. Allergies: Review of patient's allergies indicates: Allergen Reactions Advair Diskus [Fluticasone-Salmeterol] Increased shortness of breathe. Tolerates albuterol. Ibuprofen eyes swell shut Naproxen eyes swells shut Prednisone Rash. Tolerates injectable steroid. Salmeterol Unknown Vanceril [Beclomethasone Dipropionate] Increased shortness of breathe Zithromax [Azithromycin Dihydrate] Feels like hair is standing up on off head ROS: See HPI above Physical Exam BP 120/68 | Temp 36.9 C (98.4 F) | Wt 115.4 kg (254 lb 6.4 oz) | BMI 43.67 kg/m | BSA 2.28 m General: awake, alert, and oriented x 3, NAD Cardiac: regular rate and rhythm, no murmur Lungs: clear to auscultation Abdomen: soft, non-tender, normal bowel sounds, no masses or organomegaly, no inguinal nodes Neuro: no focal motor/sensory deficits, gait normal Breasts: no nipple retraction or dimpling, no nipple discharge or bleeding, no axillary or supraclavicular adenopathy, normal to palpation without dominant masses Pelvic: external genitalia and vagina anatomy within normal limits, no vulvar lesions, no significant vaginal discharge, cervix normal in appearance without lesions or purulent discharge, uterus is normal size, shape, and consistency, adnexa normal bilaterally, no abnormal pelvic masses, Pap obtained with cervical broom and brush Industrial Laborer Documentation Patient offered data communications technician and accepted. Name of data communications technician: Urvashi Reina RN Assessment/Plan: Women's annual routine gynecological examination (Primary) - NAVAL AIRCREWMAN HELICOPTER PAP SCREEN Vaginal odor - VAGINOSIS PANEL, PCR; Future; Expected date: 07/21/2023 Pap due today. Encouraged regular breast self-awareness. Encouraged annual mammograms. Order placed and patient toschedule. Vaginosis panel obtained. RTO in 1 year for routine NAVAL AIRCREWMAN HELICOPTER exam, PRN with concern Call the office with any problems, questions, concerns Mari Amezcua PA-C documented in this encounter Nursing Notes * Urvashi Reina RN - 07/21/2023 2:38 PM EDT Chief Complaint Patient presents with [employer] Regional Sales Manager Return Annual Patient identified Dona Vee by name and date of . Patient here for yearly exam. Complaints: odor and discharge on occasion Last pap: 07/15/2022 Last Mammogram: 06/16/2023 Last Dexa: NA Last Colonoscopy: na Type of Contraception: None Pt here for chlamydia screen. no Have you heard about the Gardasil Vaccine? no Would you be interested in discussing this with your provider? no Does the patient have an advance directed? No, Advance Directive brochure offered, patient declined. My [facility] is a way you can talk to your provider online through e-mail. May I activate it for you? ALREADY ACTIVE Do you need any refills while you are here? no Urvashi Reian, RN 07/21/2023 2:38 PM documented in this encounter Plan of Treatment Upcoming Encounters Date Type Specialty Care Team Description 10/06/2023 Office Visit Family Medicine Shanita Felix PA-C [address] [place] [address] [place] [address] 06/21/2024 Appointment Radiology 08/23/2024 Office Visit Gynecology Obstetrics Mari Amezcua PA-C [address] [facility] [place] [phone] Pending Results Name Type Priority Associated Diagnoses Date /Time VAGINOSIS PANEL, PCR Lab Routine Vaginal odor 07/21/2023 3:54 PM EDT NAVAL [employer]CREW[employer] HELICOPTER PAP SCREEN Pathology Routine Women's annual routine gynecological examination 07/21/2023 3:54 PM EDT Scheduled Orders Name Type Priority Associated Diagnoses Orde r Schedule VAGINOSIS PANEL, PCR Lab Routine Vaginal odor Expected: 07/21/2023, Expires: 07/21/2024 Scheduled Procedures Name Priority Associated Diagnoses Date/Ti [...] exists LUNG CANCER SCREENING - USE SMARTSET [id number] Completed 06/09/2023 GARDASIL-HPV IMMUNIZATION SERIES Aged Out No longer eligible based on patient's age to complete this topic MENINGOCOCCAL (MENACTRA/MENVEO) Aged Out No longer eligible based on patient's age to complete this topic documented as of this encounter Medical Devices Not on filedocumented as of this encounter Visit Diagnoses Diagnosis Women's annual routine gynecological examination- Primary Vaginal odor Unspecified symptom associated with female genital organs documented in this encounter Advance Directives Latest [...] the patient have Health Care Power of Farm Machinery Erector? No Care Teams Fiberglass Quality Technician Relationship Specialty Start Date End Date Shanita Felix PA-C [address] [facility] [address] [place] [address] PCP - General Physician Coin Machine Operator 11/14/14 documented as of this encounter"
--- OUTSIDE RECORDS SUMMARY | 2023-09-25 05:22 | External Medical Summary | Summary of Care ---
Author Name Unknown Organization [facility] Address [address] [place] [address] Phone [phone] Care Team Providers Care Well Reactivator Operator Name Role Phone Shanita Felix Eben COTTON Primary Care Provider +1- [phone] Reason for Referral * Precert (Within 10 days (routine)) - Authorized Specialty Diagnoses / Procedures Referred By Jasbir t Referred To Contact Sleep Disorders Diagnoses TERRI (obstructive sleep apnea) Procedures SLEEP STUDY, W/O CPAP Ilya Quinonez PA-C [address] [place] [address] Referral ID Status Reason Start Date Expiration Date V isits Requested Visits Authorized [id number] Authorized 06/16/2023 999 999 Reason for Visit * Reason Onset Date Comments Test Results 06/16/2023 Encounter Details Date Type Department Care Team Description 06/16/2023 Telephone Sleep Disorders, [facility] [address] [facility] [place] [address] Ilya Quinonez PA-C [address] [facility] [place] [address] Test Results Allergies Active [...] as of this encounter (statuses as of 07/14/2023) Medications Medication Sig Dispensed Refills Start Date [...] as of this encounter (statuses as of 07/14/2023) Active Problems Problem Noted Date COPD, group [...] as of this encounter (statuses as of 07/14/2023) Resolved Problems Problem Noted Date Resolved Date [...] in 2003. Intolerant of Meds. Microadenoma resolved [id number] MRI. Prolactin now 28 off all meds Sciatica 11/17/2008 04/14/2017 Elevated sedimentation rate 10/22/2008 04/0 06/2011 PITUITARY TUMOR - BENIGN 10/22/2008 017 Overview: First detected by MRI at [place] in 2000. Variable sizes reported from 2 to 6 mm over the years. Then in January 2011 MRI at [facility], no nodule seen. Hand joint pain 10/22/2008 02/11/2011 Asthma, allergic 04/14/2017 documented as of this encounter (statuses as of 07/14/2023) Immunizations Name Administration Dates Next Due Seasonal [...] * Telephone Encounter - TERRI Edmond - 07/14/2023 2:20 PM EDT LVM #3 needs sleep study scheduled. * Telephone Encounter - TERRI Edmond - [...] Visit Gynecology Obstetrics Mari Amezcua PA-C [address] [facility] [place] [phone] 10/06/2023 Office Visit Family Medicine Shanita Felix PA-C [address] [place] [address] [place] [address] 06/21/2024 Appointment Radiology Scheduled Orders Name Type [...] exists LUNG CANCER SCREENING - USE SMARTSET [id number] Completed 06/09/2023 GARDASIL-HPV IMMUNIZATION SERIES Aged Out [...] the patient have Health Care Power of Circuit Court Magistrate? No Care Teams Well Reactivator Operator Relationship Specialty Start Date End Date Shanita Felix, HOME-C [address] [facility] [address] [place] [address] PCP - General Physician Envelope Folder 11/14/14 documented as of this encounter
--- OUTSIDE RECORDS SUMMARY | 2023-09-25 05:22 | External Medical Summary | Summary of Care ---
Author Name Unknown Organization [facility] Address [address] [place] [address] Phone [phone] Care Team Providers Care Materials Planner/Production Planner Name Role Phone Shanita Felix PA-C Primary Care Provider +1- [phone] Reason for Visit * Reason Comments Asphalt Tamping Machine Operator Return Annual Encounter Details Date Type Department Care Team Description 07/21/2023 Office Visit Gynecology/Obstetric s [facility] [address] [place], [place] [phone] Mari Amezcua PA-C [address] [place], [place] [phone] Women's annual routine gynecological examination*; Vaginal odor [...] in 2003. Intolerant of Meds. Microadenoma resolved [id number] MRI. 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 Variable sizes reported from 2 to 6 mm over the years. Then [place] January 2011 [place] [facility]. Hand joint pain 10/22/2008 [...] 2 mm to 6 mm in size [id number]. Not seen 2010 Cervical dysplasia Cervical high [...] performed by Kay Dorantes DO at [facility] COLONOSCOPY, DIAGNOSTIC (RECTUM) N/A 05/31/2022 hemorrhoids/two medium sized lipomas ascending colon and cecum/multiple polyps/biopsies show serrated adenomatous polyps/recall 3 years/COLONOSCOPY FLEXIBLE PROXIMAL DIAGNOSTIC performed by Kay Dorantes DO at OR [facility] COLPOSCOPY OF CERVIX W/BIOPSY 01/2017 negative COLPSCPY CERVIX W/LOOP ELECT DILATION AND CURETTAGE (D&C) EGD, FLEXIBLE, DIAGNOSTIC 01/29/2019 normal bx / [facility] EGD, FLEXIBLE, DIAGNOSTIC N/A 05/19/2020 biopsies normal/ESOPHAGOGASTRODUODENOSCOPY (EGD), FLEXIBLE, TRANSORAL, DIAGNOSTIC performed by MD Melanie at OR [facility] EGD, FLEXIBLE, DIAGNOSTIC N/A 12/06/2022 normal/ESOPHAGOGASTRODUODENOSCOPY [...] performed by Trista Keane MD at OR [facility] LAPAROSCOPIC GALLBLADDER SURGERY EDU 2002 PARTIAL REMOVAL,5TH METATARSAL HEAD Right 10/26/2017 OSTECTOMY PARTIAL EXCISION 5TH METATARSAL HEAD BUNIONETTE performed by Jessy Dudley DPM at OR [facility] REMOVAL OF HEEL SPUR Right 2013; [...] Number of children: 1 Occupational History 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 One grandchild. Dona has one half sister. Social Determinants of [...] Pap obtained with cervical broom and brush Deflector Operator Documentation Patient offered cylinder tester and accepted. Name of cylinder tester: Urvashi Reina RN Assessment/Plan: Women's annual routine gynecological examination (Primary) - PLASTIC INSTALLER PAP SCREEN Vaginal odor - VAGINOSIS PANEL, PCR; Future; Expected date: 07/21/2023 Pap due today. Encouraged regular breast self-awareness. Encouraged annual mammograms. Order placed and patient toschedule. Vaginosis panel obtained. RTO in 1 year for routine PLASTIC INSTALLER exam, PRN with concern Call the office with any problems, questions, concerns Mari Amezcua PA-C documented in this encounter Nursing Notes * Urvashi Reina RN - 07/21/2023 2:38 PM EDT Chief Complaint Patient presents with Asphalt Tamping Machine Operator Return Annual Patient identified Dona Vee by [...] refills while you are here? no Urvashi Reina, RN 07/21/2023 2:38 PM documented in this encounter Plan of Treatment Upcoming Encounters Date Type Specialty Care Team Description 10/06/2023 Office Visit Family Medicine Shanita Felix PA-C [address] [place] [address] [place] [address] 06/21/2024 Appointment Radiology 08/23/2024 Office Visit Gynecology Obstetrics Mari Amezcua PA-C [address] [facility] [place] [phone] Pending Results Name Type Priority Associated Diagnoses Date /Time VAGINOSIS PANEL, PCR Lab Routine Vaginal odor 07/21/2023 3:54 PM EDT PLASTIC INSTALLER PAP SCREEN Pathology Routine Women's annual routine [...] exists LUNG CANCER SCREENING - USE SMARTSET 39804 Completed 06/09/2023 GARDASIL-HPV IMMUNIZATION SERIES Aged Out [...] the patient have Health Care Power of Instructor Dramatic Arts? No Care Teams Materials Planner/Production Planner Relationship Specialty Start Date End Date Shanita Felix PA-C [address] [facility] [address] [place] [address] PCP - General Physician Distribution Transformer Assembler 11/14/14 documented as of this encounter"
--- OUTSIDE RECORDS SUMMARY | 2023-09-25 05:22 | External Medical Summary | Summary of Care ---
Author Name Unknown Organization [facility] Address [address] [place] [address] Phone [phone] Care Team Providers Care Patient Case Manager Name Role Phone Shanita Felix PA-C Primary Care Provider +1- [phone] Encounter Details Date Type Department Care Team Description 08/22/2023 Orders Only [place] [address] [place] [address] Shanita Felix PA-C [facility] [address] [place] [address] Allergies Active Allergy Reactions Severity Noted Date [...] in 2003. Intolerant of Meds. Microadenoma resolved [id number] MRI. 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 Variable sizes reported from 2 to 6 mm over the years. Then in January 2011 MRI at [facility], no nodule seen. Hand joint pain 10/22/2008 [...] Office Visit Family Medicine Tavo Hayes MD [address] [facility] [address] [facility] [place] [address] 10/06/2023 Office Visit Family Medicine Shanita Felix PA-C [address] [facility] [address] [address] 10/23/2023 PulmDiagnostic Sleep Disorders Gl, Sleep Med Night Sleep [address] [facility], [place] [phone] 06/21/2024 Appointment Radiology 08/23/2024 Office Visit Gynecology Obstetrics Mari Amezcua PA-C [address] [place] [phone] Scheduled Procedures Name Priority Associated Diagnoses Date/Ti [...] exists LUNG CANCER SCREENING - USE SMARTSET 64906 Completed 06/09/2023 GARDASIL-HPV IMMUNIZATION SERIES Aged Out No longer eligible based on patient's age to complete this topic MENINGOCOCCAL (MENACTRA/MENVEO) Aged Out No longer eligible based on patient's age to complete this topic documented as of this encounter Medical Devices Not on filedocumented as of this encounter Procedures Procedure Name Priority Date/Time Associated Diagnosis Comments CHEMISTRY-OUTSIDE Routine 08/18/2023 documented in this encounter Results * CHEMISTRY-OUTSIDE (08/18/2023) Not all results display below - see scan for full detail OUTSIDE LAB (SEE SCANNED REPORT) Comment:SEE SCAN - PTINR, BM P, ALB, UA, CBCD CREATININE-OUTSID E LAB 1.14 0.6 - 1.2 MG/DL OUTSIDE LAB (SEE SCANNED REPORT) EGFR-OUTSIDE LAB 54.5 ML/MIN OUT SIDE LAB (SEE SCANNED REPORT) POTASSIUM-OUTSIDE LAB 4.0 3.5 - 5.1 MMOL/L OUTSIDE LAB (SEE SCANNED REPORT) GLUCOSE-OUTSIDE LAB 95 70 - 99 MG/DL OUTSIDE LAB (SEE SCANNED REPORT) HOURS FASTING OUTSID E LAB (SEE SCANNED REPORT) TRIGLYCERIDES-OUT SIDE LAB OUTSIDE LAB (SEE SCANNED REPORT) CHOLESTEROL-OUTSI DE LAB OUTSIDE LAB (SEE SCANNED REPORT) HDL-OUTSIDE LAB OUTS SARAHI LAB (SEE SCANNED REPORT) CHOL/HDL RATIO-OUTSIDE LAB OUTSIDE LA B (SEE SCANNED REPORT) LDL (CALCULATED)-OUTS SARAHI LAB OUTSIDE LAB (SEE SCANNED REPORT) LDL (DIRECT MEASURE)-OUTSIDE LAB OUTSIDE LAB (SEE SCANNED REPORT) HEMOGLOBIN, G5Q-WGSRZMV LAB OUTSIDE LAB (SEE SCANNED REPORT) PHOSPHORUS-OUTSID E LAB OUTSIDE LAB (SEE SCANNED REPORT) PTH-OUTSIDE LAB OUTS SARAHI LAB (SEE SCANNED REPORT) MICROALBUMIN RATIO-OUTSIDE LAB OUTSIDE LA B (SEE SCANNED REPORT) PROTEIN, UA-OUTSIDE LAB OUTSIDE LAB (SEE SCANNED REPORT) HEMOGLOBIN-OUTSID E LAB 12.3 12.0 - 16.0 G/DL OUTSIDE LAB (SEE SCANNED REPORT) 08/18/2023 Favian Guajardo MD LABORATORY OUTSIDE LAB (SEE SCANNED REPORT) documented in this encounter Advance Directives Latest [...] the patient have Health Care Power of Mangle Roller? No Care Teams Patient Case Manager Relationship Specialty Start Date End Date Shanita Felix PA-C [address] [facility] [address] [place] [address] PCP - General Physician It Systems Analyst 11/14/14 documented as of this encounter
--- OUTSIDE RECORDS SUMMARY | 2023-09-25 05:22 | External Medical Summary | Summary of Care ---
Author Name Unknown Organization [facility] Address [address] [place] [address] Phone [phone] Care Team Providers Care Freezer Tunnel Operator Name Role Phone Shanita Felix PA-C Primary Care Provider +1- [phone] Reason for Visit * Reason Onset Date Comments Referral 09/06/2023 Encounter Details Date Type Department Care Team (Late st Contact Info) Description 09/06/2023 Telephone [place] [address] [place] [phone] Shanita Felix PA-C [address] [place] [address] [place] [address] Referral Allergies Active Allergy Reactions Criticality Noted [...] in 2003. Intolerant of Meds. Microadenoma resolved [id number] MRI. Prolactin now 28 off all meds Sciatica 11/17/2008 04/14/2017 Elevated sedimentation rate 10/22/2008 02/11/2011 PITUITARY TUMOR - BENIGN 10/22/200807/2017 Overview: First detected by MRI at [place] in 2000. Variable sizes reported from 2 to 6 mm over the years. Then in January 2011 MRI at [facility], no nodule seen. Hand joint pain 10/22/2008 [...] encounter Miscellaneous Notes * Addendum Note - Lissa Dasilva RN - 09/07/2023 1:41 PM EDTAddended by: LISSA DASILVA on: 09/07/2023 01:41 PM Modules accepted: Orders * Telephone Encounter - Lissa Dasilva RN - 09/07/2023 1:38 PM EDT Provider to address: Order pended per recommendation. Please sign if agreeable. Reason for Call: Referral Contact: [facility] Contact Type: Orders Outcome: see above. Face [...] the MRI of her ankle the sales representative printing paper stated the referral should state "Foot and Ankle" right now the referral has "Ankle" only. Please advise. If there are any questions please call Dona at [phone] Thank you. TERRI Alcaraz documented in this encounter Plan of Treatment Upcoming Encounters Date Type Department Care Team (Late st Contact Info) Description 09/16/2023 9:20 AM EST Office Visit [facility] [address] [facility] [place] [phone] Tavo Hayes MD [address] [place] [address] 10/06/2023 4:20 PM EST Office Visit [place] [phone] [place] [address] [place] [address] Shanita Felix PA-C [address] [facility] [address] [place] [address] 10/23/2023 8:30 PM EST PulmDiagnostic Sleep Lab, [address] [place] [address] [facility], Sleep Med Night Sleep [address] [place] [address] 06/21/2024 3:45 PM EDT Appointment Radiology, [address] [place] [phone] 08/23/2024 4:00 PM EDT Office Visit Gynecology/[address]stetrics [address] [place] [address] Mari Amezcua PA-C [address] [place] [address] Scheduled Procedures Name Priority Associated Diagnoses Date/Ti me COLONOSCOPY FLEXIBLE PROXIMA L DIAGNOSTIC Recall History of colonic polyps Health Maintenance Due Date Last Done Comments COVID-19 Vaccine (#1) 1969 Pneumococcal Vaccine: Pediatrics (0 to 5 Years) and At-Risk Patients (6 to 64 Years) (1 - PCV) 1975 Alpha-1 Antitrypsin 1987 DISCUSS TOBACCO CESSATION (REFER TO SMARTSET #6401) 08/26/2016 08/26/2015 (Refused) Zoster Vaccines (1 of [...] exists LUNG CANCER SCREENING - USE SMARTSET 90881 Completed 06/09/2023 GARDASIL-HPV IMMUNIZATION SERIES Aged Out [...] the patient have Health Care Power of Technical Staff Assistant? No Care Teams Freezer Tunnel Operator Relationship Specialty Start Date End Date Shanita Felix PA-C [address] [facility] [address] [place] [address] PCP - General Physician Research Assistant Member 11/14/14 documented as of this encounter
--- OUTSIDE RECORDS SUMMARY | 2023-09-25 05:23 | External Medical Summary | Summary of Care ---
Author Name Unknown Organization [facility] Address [address] [place] [address] Phone [phone] Care Team Providers Care Small Engine Technician Name Role Phone Shanita Felix Eben COTTON Primary Care Provider +1- [phone] Reason for Referral * Precert (Within 10 days (routine)) - Authorized Specialty Diagnoses / Procedures Referred By Jasbir t Referred To Contact Sleep Disorders Diagnoses TERRI (obstructive sleep apnea) Procedures SLEEP STUDY, W/O CPAP Ilya Quinonez PA-C [address] [place] [address] Referral ID Status Reason Start Date Expiration Date V isits Requested Visits Authorized [id number] Authorized 06/16/2023 999 999 Reason for Visit * Reason Onset Date Comments Test Results 06/16/2023 Encounter Details Date Type Department Care Team Description 06/16/2023 Telephone Sleep Disorders, [facility] [address] [facility] [place] [address] Ilya Quinonez PA-C [address] [facility] [place] [address] Test Results [...] as of this encounter (statuses as of 06/16/2023) Medications Medication Sig Dispensed Refills Start Date [...] as of this encounter (statuses as of 06/16/2023) Active Problems Problem Noted Date COPD, group [...] as of this encounter (statuses as of 06/16/2023) Resolved Problems Problem Noted Date Resolved Date [...] in 2003. Intolerant of Meds. Microadenoma resolved [id number] MRI. 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 Variable sizes reported from 2 to 6 mm over the years. Then in January 2011 MRI at [facility], no nodule seen. Hand joint pain 10/22/2008 02/11/2011 Asthma, allergic 04/14/2017 documented as of this encounter (statuses as of 06/16/2023) Immunizations Name Administration Dates Next Due Seasonal Influenza, Quadriva lent, No Preserve, 6 Mons & Above, IM 08/17/2017 Seasonal Influenza, Split, I IV3, With [...] encounter Miscellaneous Notes * Telephone Encounter - Ilya Quinonez PA-C [...] Visit Gynecology Obstetrics Mari [facility]zcua [facility] [phone] 10/06/2023 Office Visit Family Medicine Shanita Felix PA-C [facility] [address] [address] Scheduled Orders Name Type Priority Associated Diagnoses [...] 1999 DISCUSS TOBACCO CESSATION (REFER TO SMARTSET #9991) 08/26/2016 08/26/2015 (Refused) Zoster Vaccines (1 of 2) 2019 Depression Screening, Annual for Pts 12 and Over 07/09/2022 07/09/2021, 08/26/2015 (Discussed) Mammogram 06/10/2023 06/10/2022, 05/08, 05/29/2020, Additional history exists Influenza Vaccine (FLU shot) (#1) 2023 08/17/2017, 08/28/2014, 09/10/2012, Additional history exists O2 ASSESSMENT COMPLETED IN PAST YEAR FOR COPD 12/06/2023 12/06/2022 GFR 03/04/2024 03/04/2023, 03/06, 11/19/2021, Additional history exists TSH 03/04/2024 03/04/2023, 03/06, 04/02/2021, Additional history exists COLONOSCOPY-EVERY 3 YRS AGES [...] exists LUNG CANCER SCREENING - USE SMARTSET 74825 Completed 06/09/2023 GARDASIL-HPV IMMUNIZATION SERIES Aged Out [...] the patient have Health Care Power of Pipe Connector? No Care Teams Small Engine Technician Relationship Specialty Start Date End Date Shanita Felix, HOME-C [address] [facility] [address] [place] [address] PCP - General Physician Cardiology Teacher 11/14/14 documented as of this encounter
--- OUTSIDE RECORDS SUMMARY | 2023-09-25 05:23 | External Medical Summary | Summary of Care ---
Author Name Unknown Organization [facility] Address [address] [place] [address] Phone [phone] Care Team Providers Care Lion Trainer Name Role Phone Shanita Felix PA-C Primary Care Provider +1- [phone] Reason for Visit * Reason Comments eRx-Medication Refill Encounter Details Date Type Department Care Team Description 04/24/2023 Refill [place] [address] [place] [phone] Shanita Felix PA-C [facility] [address] [place] [address] Allergies Active Allergy Reactions Severity Noted Date Comments Fluticasone-Salmeterol 04/03/2014 Increased shortness of breathe. Tolerates albuterol. Ibuprofen 07/21/2004 eyes swell shut Naproxen 07/21/2004 eyes swells shut Prednisone 07/21/2004 Rash. Tolerates injectable steroid. Salmeterol Unknown 08/05/2014 Beclomethasone Dipropionate 04/03/20 14 Increased shortness of breathe Azithromycin Dihydrate 12/01/2008 Feels like hair is standing up on off head documented as of this encounter (statuses as of 04/26/2023) Medications Medication Sig Dispensed Refills Start Date [...] by mouth in the morning. 0 Active hydroCHLOROthiazide 50 MG Oral Tablet (Hydrodiuril)Indicat ions:Bilateral edema of lower extremity,HTN, goal below 140/90 TAKE ONE TABLET BY MOUTH EVERY DAY 90 Tablet 3 05/20/2022 Active Potassium Chloride Jocy ER 20 MEQ Oral Tablet Extended ReleaseIndications:H ypopotassemia TAKE ONE TABLET BY MOUTH EVERY DAY 90 Tablet 3 05/20/2022 Active Gabapentin 600 MG Oral Tablet (Neurontin)Indicatio ns:Other chronic pain TAKE TWO TABLETS BY MOUTH EVERY MORNING AND TAKE TWO TABLETS BY MOUTH AT BEDTIME 360 Tablet 3 06/28/2022 Active Pantoprazole Sodium 40 MG Oral Tablet Delayed Release (Protonix)Indication s:GERD (gastroesophageal reflux disease) TAKE ONE TABLET BY MOUTH EVERY DAY THIRTY MINUTES BEFORE THE FIRST MEAL OF THE DAY. DO NOT CRUSH, SPLIT OR CHEW THE TABLET. 90 Tablet 1 10/18/2022 Active Levothyroxine Sodium 150 MCG Oral Tablet (Levoxyl)Indications :Acquired hypothyroidism TAKE 1 TABLET BY MOUTH DAILY AT LEAST 30 MINUTES PRIOR TO FIRST MEAL OF THE DAY OR OTHER MEDICATIONS Strength: 150 mcg 90 Tablet 3 10/19/2022 Active HYDROcodone-Acetamin ophen 5-325 MG Oral Tablet Take 1 Tablet by mouth every 6 hours as needed for Pain, Moderate. 30 Tablet 0 10/20/2022 Active Ventolin HFA 108 (90 Base) MCG/ACT Inhalation Aerosol SolutionIndications: Mild persistent asthma without complication Inhale 2 Puffs by mouth every 4 hours as needed for Cough, Shortness of Breath or Wheezing. 18 g 5 11/25/2022 Active Lidocaine 5 % External Patch (Lidoderm) Place 1 Patch topically on the skin daily. 30 Patch 0 12/22/2022 Active busPIRone HCl 10 MG Oral Tablet (Buspar)Indications: NOMI (generalized anxiety disorder) Take 1 Tablet by mouth in the morning and 1 Tablet before bedtime. 180 Tablet 2 03/31/2023 Active traZODone HCl 300 MG Oral Tablet (Desyrel) TAKE ONE TABLET BY MOUTH AT BEDTIME 90 Tablet 1 04/22/2023 Active documented as of this encounter (statuses as of 04/26/2023) Active Problems Problem Noted Date COPD, group [...] as of this encounter (statuses as of 04/26/2023) Resolved Problems Problem Noted Date Resolved Date [...] in 2003. Intolerant of Meds. Microadenoma resolved [id number] MRI. 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 Variable sizes reported from 2 to 6 mm over the years. Then [place] [facility]. Hand joint pain 10/22/2008 02/11/2011 Asthma, allergic 04/14/2017 documented as of this encounter (statuses as of 04/26/2023) Immunizations Name Administration Dates Next Due Seasonal [...] encounter Miscellaneous Notes * Telephone Encounter - Leanne Blackwell [facility] - 04/26/2023 8:58 AM EDTRefused Prescriptions: Disp Refills traZODone HCl 300 MG Oral Tablet (Desyrel) 90 Tab*1 Sig: TAKE ONE TABLET BY MOUTH AT BEDTIMERefused By: LEANEN BLACKWELL for Refusal: Duplicate Request------ documented in this encounter Plan of Treatment Upcoming Encounters Date Type Specialty Care Team Description 04/28/2023 Appointment Radiology 06/02/2023 Office Visit Sleep Disorders Ilya Quinonez PA-C [address] [place], [place] [phone] 06/16/2023 Appointment Radiology 07/21/2023 Office Visit Gynecology Obstetrics Mari Amezcua PA-C [address], [place] [phone] 10/06/2023 Office Visit Family Medicine Shanita Felix PA-C [address] [place] [address] Scheduled Procedures Name Priority Associated Diagnoses Date/Ti me COLONOSCOPY FLEXIBLE PROXIMA L DIAGNOSTIC Recall History of colonic polyps Health Maintenance Due Date Last Done Comments COVID-19 Vaccine (#1) 1969 Pneumococcal Vaccine: Pediatrics (0 to 5 Years) and At-Risk Patients (6 to 64 Years) (1 - PCV) 1975 Alpha-1 Antitrypsin 1987 DISCUSS TOBACCO CESSATION (REFER TO SMARTSET #3291) 08/26/2016 08/26/2015 (Refused) LUNG CANCER SCREENING - USE SMARTSET 59591 2019 Zoster Vaccines (1 of 2) 2019 Depression Screening, Annual for Pts 12 and Over 07/09/2022 07/09/2021, 08/26/2015 (Discussed) Mammogram 06/10/2023 06/10/2022, 07/, 05/29/2020, Additional history exists Influenza Vaccine (FLU shot) (Season Ended) 2023 08/17/2017, 08/28/2014, 09/10/2012, Additional history exists O2 ASSESSMENT COMPLETED IN PAST YEAR FOR COPD 12/06/2023 12/06/2022 GFR 03/04/2024 03/04/2023, 03/06, 11/19/2021, Additional history exists TSH 03/04/2024 03/04/2023, 03/06, 04/02/2021, Additional history exists COLONOSCOPY-EVERY 3 YRS AGES 18-100 05/31/2025 05/31/2022, 05/31/2022, 03/02/2017, Additional history exists Albumin/Creatinine Ratio 03/04/2026 03/04/2023, 03/06 Diabetes Screening 03/04/2026 03/04/2023, 0 03/04/2023, 03/18/2022, Additional history exists Pap Smear 07/15/2027 07/15/2022, 02/05, 12/20/2016, Additional history exists Lipid Panel 03/04/2028 03/04/2023, 03/06, 04/02/2021, Additional history exists DTaP,Tdap,and Td Vaccines (3 - Td or Tdap) 05/26/2031 05/26/2021, 07/29/2010 Hepatitis C Screening Completed 01/04/2019 COLONOSCOPY-EVERY 5 YRS AGES 18-100 Discontinued 05/31/2022, 05/31/2022, 03/02/2017, Additional history exists GARDASIL-HPV IMMUNIZATION SERIES Aged Out No longer [...] the patient have Health Care Power of Boiler Inspector? No Care Teams Lion Trainer Relationship Specialty Start Date End Date Shanita Felix PA-C [address] [facility] [place] [address] PCP - General Physician [employer]s Drilling Machine Operator 11/14/14 documented as of this encounter
--- OUTSIDE RECORDS SUMMARY | 2023-09-25 05:23 | External Medical Summary | Summary of Care ---
Author Name Unknown Organization [facility] Address [address] [place] [address] Phone [phone] Care Team Providers Care Race Engine Builder Name Role Phone Shanita Felix PA-C Primary Care Provider +1- [phone] Reason for Visit * Reason Onset Date Comments Appointment 04/22/2023 Encounter Details Date Type Department Care Team Description 04/22/2023 Telephone Radiology, [facility] [address] [place] [address] [facility] [address] [place] [address] Appointment Allergies Active Allergy Reactions Severity Noted Date Comments Fluticasone-Salmeterol 04/03/2014 Increased shortness of breathe. Tolerates albuterol. Ibuprofen 07/21/2004 eyes swell shut Naproxen 07/21/2004 eyes swells shut Prednisone 07/21/2004 Rash. Tolerates injectable steroid. Salmeterol Unknown 08/05/2014 Beclomethasone Dipropionate 04/03/20 14 Increased shortness of breathe Azithromycin Dihydrate 12/01/2008 Feels like hair is standing up on off head documented as of this encounter (statuses as of 04/22/2023) Medications Medication Sig Dispensed Refills Start Date [...] as of this encounter (statuses as of 04/22/2023) Active Problems Problem Noted Date COPD, group [...] as of this encounter (statuses as of 04/22/2023) Resolved Problems Problem Noted Date Resolved Date [...] in 2003. Intolerant of Meds. Microadenoma resolved [id number] MRI. 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 Variable sizes reported from 2 to 6 mm over the years. Then in January 2011 MRI at [facility], no nodule seen. Hand joint pain 10/22/2008 02/11/2011 Asthma, allergic 04/14/2017 documented as of this encounter (statuses as of 04/22/2023) Immunizations Name Administration Dates Next Due Seasonal [...] encounter Miscellaneous Notes * Telephone Encounter - ARSH Bolivar - 04/22/2023 10:13 AM EDT Name: Dona Vee Do you have any of the following: Pacemaker, stents, heart valves, aneurysm clips? No Have you ever worked with metal or have you ever gotten metal in your eyes? No Have you had a colonoscopy in the last 30 days? No Are you on dialysis? No Do you have any dermals or body piercing's? No Do you wear an insulin pump or CGM? No ARSH Bolivar documented in this encounter Plan of Treatment Upcoming Encounters Date Type Specialty Care Team Description 04/28/2023 Appointment Radiology 06/02/2023 Office Visit Sleep Disorders Ilya Quinonez [facility]-C [address] [facility] [place] [id number] 06/16/2023 Appointment Radiology 07/21/2023 Office Visit Gynecology Obstetrics Mari Amezcua PA-C [address] [facility] [place], [place] [id number] 10/06/2023 Office Visit Family Medicine Shanita Felix PA-C [address] [place] [address] Scheduled Procedures Name Priority Associated Diagnoses Date/Ti [...] (Refused) LUNG CANCER SCREENING - USE SMARTSET 93905 2019 Zoster Vaccines (1 of 2) 2019 [...] the patient have Health Care Power of Rural Electrification Engineer? No Care Teams Race Engine Builder Relationship Specialty Start Date End Date Shanita Felix PA-C [address] [facility] [place] [id number] PCP - General Physician Senior Research Fellow 11/14/14 documented as of this encounter
--- OUTSIDE RECORDS SUMMARY | 2023-09-25 05:23 | External Medical Summary | Summary of Care ---
Author Name Unknown Organization [facility] Address [address] [place] [address] Phone [phone] Care Team Providers Care Heat Curer Name Role Phone Shanita Felix PA-C Primary Care Provider +1- [phone] Reason for Visit * Reason Onset Date Comments Test Results 06/22/2023 Encounter Details Date Type Department Care Team Description 06/22/2023 Telephone [place] [address] [place], [place] [id number] Shanita Felix PA-C [facility] [address] [place] [address] Test Results Allergies Active Allergy Reactions Severity [...] as of this encounter (statuses as of 06/22/2023) Medications Medication Sig Dispensed Refills Start Date [...] as of this encounter (statuses as of 06/22/2023) Active Problems Problem Noted Date COPD, group [...] as of this encounter (statuses as of 06/22/2023) Resolved Problems Problem Noted Date Resolved Date [...] in 2003. Intolerant of Meds. Microadenoma resolved [id number] MRI. 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 Variable sizes reported from 2 to 6 mm over the years. Then in January 2011 MRI at [facility], no nodule seen. Hand joint pain 10/22/2008 02/11/2011 Asthma, allergic 04/14/2017 documented as of this encounter (statuses as of 06/22/2023) Immunizations Name Administration Dates Next Due Seasonal [...] Miscellaneous Notes * Telephone Encounter - TERRI Sierra - 06/22/2023 9:52 AM EDT Appt made and letter sent out. 06/22/23 * Telephone Encounter - Shanita Felix PA-C - 06/22/2023 8:27 AM EDT Radiology letter sent with normal mammogram results. Please schedule annual. documented in this encounter Plan of Treatment Upcoming Encounters Date Type Specialty Care Team Description 07/21/2023 Office Visit Gynecology Obstetrics Mari Amezcua PA-C [address] [facility] [place] [id number] 10/06/2023 Office Visit Family Medicine Shanita Felix PA-C [address] [address] [place] [id number] 06/21/2024 Appointment Radiology Scheduled Orders Name Type Priority Associated Diagnoses Orde r Schedule MAMMOGRAM SCREENING FRANCY BILATERAL Medical Imaging Routine Encounter for screening mammogram for breast cancer Expected: 06/16/2024, Expires: 07/23/2024 Scheduled Procedures Name Priority Associated Diagnoses Date/Ti [...] 06/16/2023, 08/0 03/2022, 06/04/2021, Additional history exists COLONOSCOPY-EVERY 3 [...] exists LUNG CANCER SCREENING - USE SMARTSET [id number] Completed 06/09/2023 GARDASIL-HPV IMMUNIZATION SERIES Aged Out No longer eligible based on patient's age to complete this topic MENINGOCOCCAL (MENACTRA/MENVEO) Aged Out No longer eligible based on patient's age to complete this topic documented as of this encounter Medical Devices Not on filedocumented as of this encounter Visit Diagnoses Diagnosis Encounter for screening mammogram for breast cancer- Primary documented in this encounter Advance Directives Latest [...] the patient have Health Care Power of Heel Compressor? No Care Teams Heat Curer Relationship Specialty Start Date End Date Shanita Felix PA-C [address] [address] [place] [id number] PCP - General Physician Transport Operations Inspector 11/14/14 documented as of this encounter
--- OUTSIDE RECORDS SUMMARY | 2023-09-25 05:23 | External Medical Summary | Summary of Care ---
Author Name Unknown Organization [facility] Address [address] [place] [address] Phone [phone] Care Team Providers Care Corn Miller Name Role Phone Shanita Felix PA-C Primary Care Provider +1- [phone] Encounter Details Date Type Department Care Team Description 06/16/2023 Hospital Encounter Radiology, [address] [phone] Arrived Allergies Active Allergy Reactions Severity Noted [...] as of this encounter (statuses as of 06/17/2023) Medications Medication Sig Dispensed Refills Start Date [...] as of this encounter (statuses as of 06/17/2023) Active Problems Problem Noted Date COPD, group [...] as of this encounter (statuses as of 06/17/2023) Resolved Problems Problem Noted Date Resolved Date [...] in 2003. Intolerant of Meds. Microadenoma resolved [id number] MRI. 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 Variable sizes reported from 2 to 6 mm over the years. Then in January 2011 MRI at [facility] [place], no nodule seen. Hand joint pain 10/22/2008 02/11/2011 Asthma, allergic 04/14/2017 documented as of this encounter (statuses as of 06/17/2023) Immunizations Name Administration Dates Next Due Seasonal [...] Visit Gynecology Obstetrics Mari Amezcua PA-C [address] [facility] [place] [address] 10/06/2023 Office Visit Family Medicine Shanita Felix PA-C [address] [place] [address] [place] [id number] Pending Results Name Type Priority Associated Diagnoses Date /Time MAMMOGRAM SCREENING FRANCY BILATERAL Medical Imaging Routine Encounter for screening mammogram for breast cancer 06/16/2023 3:07 PM EDT Scheduled Orders Name Type Priority Associated Diagnoses Orde r Schedule MAMMOGRAM SCREENING FRANCY BILATERAL Medical Imaging Routine Encounter for screening mammogram for breast cancer 1 Occurrences starting 06/16/2023 until 06/16/2023 Scheduled Procedures Name Priority Associated Diagnoses [...] exists LUNG CANCER SCREENING - USE SMARTSET [id number] Completed 06/09/2023 GARDASIL-HPV IMMUNIZATION SERIES Aged Out No longer eligible based on patient's age to complete this topic MENINGOCOCCAL (MENACTRA/MENVEO) Aged Out No longer eligible based on patient's age to complete this topic documented as of this encounter Medical Devices Not on filedocumented as of this encounter Visit Diagnoses Diagnosis Encounter for screening mammogram for breast cancer documented in this encounter Advance Directives Latest [...] the patient have Health Care Power of Fork Lift Truck Operator? No Care Teams Corn Miller Relationship Specialty Start Date End Date Shanita Felix PA-C [address] [facility] [address] [place] [id number] PCP - General Physician Beef Cattle Grazier 11/14/14 documented as of this encounter
--- OUTSIDE RECORDS SUMMARY | 2023-09-25 05:23 | External Medical Summary | Summary of Care ---
Author Name Unknown Organization [facility] Address [address] [place] [address] Phone [phone] Care Team Providers Care Hydroelectric Machinery Mechanic Name Role Phone Isidro Shanita Treadwell PA-C Primary Care Provider +1- [phone] Reason for Visit * Reason Comments Sleep Problems Encounter Details Date Type Department Care Team Description 06/07/2023 PulmDiagnostic Sleep Lab, [facility] [address] [place], [place] [id number] [facility], Sleep Med Home Study [address] [place] [address] Hypersomnolence* Allergies Active Allergy Reactions Severity Noted Date Comments Fluticasone-Salmeterol 04/03/2014 Increased shortness of breathe. Tolerates albuterol. Ibuprofen 07/21/2004 eyes swell shut Naproxen 07/21/2004 eyes swells shut Prednisone 07/21/2004 Rash. Tolerates injectable steroid. Salmeterol Unknown 08/05/2014 Beclomethasone Dipropionate 04/03/20 14 Increased shortness of breathe Azithromycin Dihydrate 12/01/2008 Feels like hair is standing up on off head documented as of this encounter (statuses as of 06/15/2023) Medications Medication Sig Dispensed Refills Start Date [...] BEDTIME 360 Tablet 3 06/28/2022 3 Active documented as of this encounter (statuses as of 06/15/2023) Active Problems Problem Noted Date COPD, group [...] as of this encounter (statuses as of 06/15/2023) Resolved Problems Problem Noted Date Resolved Date [...] in 2003. Intolerant of Meds. Microadenoma resolved [id number] MRI. 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 Variable sizes reported from 2 to 6 mm over the years. Then in January 2011 MRI at [facility], no nodule seen. Hand joint pain 10/22/2008 02/11/2011 Asthma, allergic 04/14/2017 documented as of this encounter (statuses as of 06/15/2023) Immunizations Name Administration Dates Next Due Seasonal [...] as of this encounter Progress Notes * Tiffanie Thorne MD - 06/15/2023 12:40 PM EDT Images from the original note were not included. documented in this encounter Plan of Treatment Upcoming Encounters Date Type Specialty Care Team Description 06/16/2023 Appointment Radiology 07/21/2023 Office Visit Gynecology Obstetrics Mari Amezcua PA-C [address] [place] [address] 10/06/2023 Office Visit Family Medicine Shanita Felix PA-C [address] [phone] [place] [id number] Scheduled Orders Name Type Priority Associated Diagnoses Orde r Schedule HOME SLEEP TEST W/TYPE 4 MONITOR, 3 CHANNEL Procedures Routine TERRI (obstructive sleep apnea) Ordered: 06/02/2023 Scheduled Procedures Name Priority Associated Diagnoses Date/Ti [...] exists LUNG CANCER SCREENING - USE SMARTSET [id number] Completed 06/09/2023 GARDASIL-HPV IMMUNIZATION SERIES Aged Out No longer eligible based on patient's age to complete this topic MENINGOCOCCAL (MENACTRA/MENVEO) Aged Out No longer eligible based on patient's age to complete this topic documented as of this encounter Medical Devices Not on filedocumented as of this encounter Visit Diagnoses Diagnosis Hypersomnolence- Primary Hypersomnia, unspecified documented in this encounter Advance Directives [...] the patient have Health Care Power of Education Nurse? No Care Teams Hydroelectric Machinery Mechanic Relationship Specialty Start Date End Date Shanita Felix PA-C [address] [facility] [address] [place] [address] PCP - General Physician Continuing Education Instructor 11/14/14 documented as of this encounter
--- OUTSIDE RECORDS SUMMARY | 2023-09-25 05:23 | External Medical Summary | Summary of Care ---
Author Name Unknown Organization [facility] Address [address] [place] [address] Phone [phone] Care Team Providers Care Client Renewal Specialist Name Role Phone Shanita Felix PA-C Primary Care Provider [phone] Reason for Referral * (Within 10 days (routine)) - Authorized Specialty Diagnoses / Procedures Referred By Jasbir dailey Referred To Contact Radiology Diagnoses History of tobacco abuse Procedures LUNG CANCER SCREENING PROGRAM REFERRAL Ilya Quinonez PA-C [address] [place] [address] Referral ID Status Reason Start Date Expiration Date V isits Requested Visits Authorized [id number] Authorized 06/02/2023 999 999 Reason for Visit * Reason Comments NEW PATIENT * Evaluate & Treat - Unlimited Visits (Within 30 days (routine)) - Authorized Specialty Diagnoses / Procedures Referred By Jasbir dailey Referred To Contact Sleep Medicine / Sleep Disorders Diagnoses TERRI (obstructive sleep apnea) Shanita Felix PA-C [facility] [address] [place] [id number] Referral ID Status Reason Start Date Expiration Date Visits Requested Visits Authorized [id number] Authorized Specialty Services Required 03/31/2023 2 2 Encounter Details Date Type Department Care Team Description 06/02/2023 Office Visit Sleep Disorders, [facility] [address] [place] [address] Ilya Quinonez PA-C [address] [facility] [place] [id number] History of tobacco abuse*; TERRI (obstructive sleep apnea) Allergies Active Allergy Reactions Severity Noted Date Comments Fluticasone-Salmeterol 04/03/2014 Increased shortness of breathe. Tolerates albuterol. Ibuprofen 07/21/2004 eyes swell shut Naproxen 07/21/2004 eyes swells shut Prednisone 07/21/2004 Rash. Tolerates injectable steroid. Salmeterol Unknown 08/05/2014 Beclomethasone Dipropionate 04/03/20 14 Increased shortness of breathe Azithromycin Dihydrate 12/01/2008 Feels like hair is standing up on off head documented as of this encounter (statuses as of 06/02/2023) Medications Medication Sig Dispensed Refills Start Date [...] EVERY DAY 90 Tablet 3 05/20/2022 Active HYDROcodone-Acetamin ophen 5-325 MG Oral Tablet Take 1 Tablet by mouth every 6 hours as needed for Pain, Moderate. 30 Tablet 0 10/20/2022 Active Additional Information Patient not taking.Reported on 06/02/2023 Ventolin HFA 108 (90 Base) MCG/ACT Inhalation [...] MEDS 90 Tablet 3 10/19/2022 3 Active Pantoprazole Sodium 40 MG Oral Tablet Delayed Release (Protonix)Indication s:GERD (gastroesophageal reflux disease) TAKE ONE TABLET BY MOUTH EVERY DAY 30 MINUTES BEFORE THE FIRST MEAL OF THE DAY. DO NOT CRUSH, CUT OR CHEW 90 Tablet 1 10/18/2022 3 Active Gabapentin 600 MG Oral Tablet (Neurontin)Indicatio ns:Other chronic pain TAKE TWO TABLETS BY MOUTH EVERY MORNING AND TAKE TWO TABLETS BY MOUTH AT BEDTIME 360 Tablet 3 06/28/2022 3 Active documented as of this encounter (statuses as of 06/02/2023) Active Problems Problem Noted Date COPD, group [...] as of this encounter (statuses as of 06/02/2023) Resolved Problems Problem Noted Date Resolved Date [...] in 2003. Intolerant of Meds. Microadenoma resolved st2129 MRI. 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 Variable sizes reported from 2 to 6 mm over the years. Then in January 2011 MRI at [facility], no nodule seen. Hand joint pain 10/22/2008 02/11/2011 Asthma, allergic 04/14/2017 documented as of this encounter (statuses as of 06/02/2023) Immunizations Name Administration Dates Next Due Seasonal [...] Tobacco: Never Tobacco Cessation:Ready to Q uit: Not Asked; Counseling Given: Not Answered Comments:1 PPD 01/26/22 Alcohol Use Standard Drinks/Week [...] Sign Reading Time Taken Comments Blood Pressure 133/66 06/02/2023 3:02 PM EDT Pulse 86 06/02/2023 3:02 PM EDT Temperature - - Respiratory Rate - - Oxygen Saturation - - Inhaled Oxygen Concentration - - Weight 115.7 kg (255 lb) 06/02/2023 3:02 PM EDT Height 162.6 cm (5' 4") 06/02/2023 3:02 PM EDT Body Mass Index 43.77 06/02/2023 3:02 PM EDT documented in this [...] this encounter Patient Instructions * Patient Instructions* Ilya Quinonez PA-C - 06/02/2023 3:26 PM EDT Dona Vee [id number] Benefits of Quitting Smoking Why should I quit smoking? Smoking is bad for you and bad for others around you. Smoking causes cancer, heart attacks, hardening of the arteries, bronchitis, emphysema, cough, shortness of breath, wrinkles, and premature aging. It stains teeth and fingers, irritates the eyes, furs the tongue, and causes bad breath. People are living longer today than their parents did, so it makes sense to work on staying healthy and independent. One of the best ways to do this is to quit smoking. Benefits of quitting smoking It takes time to reverse many years' worth of smoking damage to your body, but some benefits of quitting smoking begin immediately. For example, you're financially better off on day one. Your health starts to improve right away, too, because you remove a former constant source of irritation from your lungs. People may comment that you no longer cough. Your blood circulation is likely to improve, so your hands and feet may feel warmer. Your teeth, breath, and fingers are no longer a turn-off. Benefits that you're less aware of also begin to occur. These include better resistance to colds and respiratory infections, less likelihood of major heart and circulation problems, less risk of high blood pressure or stroke, and less risk of developing cancer. The following arguments are often presented by smokers as justifications for their continuing to smoke: "I have to sometime, so I might as well enjoy life until then." True, but as a smoker you're much more likely to of a heart attack or cancer - neither of whichare very pleasant ways to go. "I'm only hurting myself." True, if you don't count the heartache and grief you may cause your loved ones by your early or permanent disability, or the damage of your smoke to others. "Lots of people who smoke live to ripe old ages in perfect health." True, but this is rare. Nearly all smokers have significant health problems. "Smoking is one of my pleasures. I don't want to quit." Smoking is associated with pleasure because the nicotine in tobacco is an addictive drug. Your bodywill continue to crave a regular supply until you can overcome the habit. Smoking is always a disadvantage to your health and that of your loved ones. "It's my choice and I choose to smoke." True. It is your choice. In a survey of older former smokers, more than 90% quit on their own because they decided to do so. The main reasons they gave for quitting were wanting to stay healthy, following health care provider's advice, regaining control of their lives, and making a loved one happy . [place] Department of Health Quit Line [employer] Free Quitline 9- QUIT NOW ( ) Your insurance company may also have more information and helpful programs to help you quit. Some may even help cover some of the costs. For example, [facility] members can call to find out about their smoking cessation program and medication coverage. Developed by Belkys Ruby MD, for [employer]. Published by [employer]. Last modified: 2006-03-17 Last reviewed: 2006-01-04 This content is reviewed periodically and is subject to change as new health information becomes available. The information is intended to inform and educate and is not a replacement for medical evaluation, advice, diagnosis or treatment by a healthcare professional. Adult Health Advisor 2006.4 Index Adult Health Advisor 2006.4 Credits Copyright 2006 [employer] and/or one of its subsidiaries. All Rights Reserved. We are ordering a test to evaluate you for sleep apnea. If results are positive, in most cases we will start by ordering a CPAP, and you will receive notification (via My Chart or phone) of positive test results. In some cases if the sleep apnea is very severe or shows concerning problems with oxygen, we will want you to come back to the sleep lab for aCPAP titration study. If a CPAP is ordered, you will be contacted by [facility] regarding the CPAP order, and they will match you with a home care company that supplies CPAPs. You will receive a CPAP in the followingweeks. Once a CPAP is received you are to contact our office for a follow up appointment ([phone]). Insurance requires follow-up 30-90 days after starting CPAP. Please use the machine as much as possible to meet insurance requirement of 70% (at least 4 hours per night). The insurance company is essentially renting the device from the supplier, so if you don't use it enough, they do not want to keep paying for it. documented in this encounter Progress Notes * Ilya Quinonez PA-C - 06/02/2023 3:09 PM EDT Sleep Medicine Evaluation [facility] Consultation was requested by Shanita Felix PA-C, and a copy of this report is being sent to the provider electronically. HPI: Dona Vee is a(n) 52 year old female with PMH significant for morbid obesity, HLD, COPD, tobacco use disorder, HTN, asthma, fibromyalgia, and depression presenting for evaluation of snoring, history of TERRI intolerant of CPAP. She tried CPAP, three different masks, but she kept taking ti off in her sleep because she felt like she was suffocating. She is now waking up 2-3 times per night and is tired all day long. 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 Patient reports a typical bedtime of 6:30-8pm, lays in bed watching TV then asleep by 9-10pm. It takes a few moments to fall asleep. She is on Trazodone 300 mg. Patient awakens 2-3 times overnight sometimes to pee sometimes just to roll over. It takes moments to return to sleep. Patient awakens for the day at 4:45AM, feeling very groggy. Patient does feel sleepy or tired during the day. Patient does have difficulty with memory or concentration. Patient does not take naps. Patient does use caffeine, sweet tea in evenings. There is no history of a viral illness or significant head injury prior to the start of daytime sleepiness (had COVID but does not correlate increased fatigue with this) There has been a significant weight change, lost about 20 lbs since diagnosis in 2019 The patient reports having ("+" indicates reports, "-" indicates denies): Restless Legs Syndrome Symptoms: + Pain/discomfort in legs at night + Urge to move legs at night + Better with movement + Disrupts sleep (mostly notices it when she is trying to go to sleep) Parasomnias Symptoms: - Sleepwalking - Dream-enactment - Dreams with short naps - Sleep paralysis - Sleep-related hallucinations - Cataplexy Excessive Daytime Sleepiness: + Drowsy driving (if driving > 1.5 hours gets VERY drowsy) + Sleepy with sedentary activity [place] Sleepiness Scale Question 05/19/2023 9:59 AM EDT - Filed by Patient What is the chance you will doze off in the following situation? Sitting and reading Moderate chance of dozing Watching TV Moderate chance of dozing Sitting inactive in a public place, such as a theater or meeting Slight chance of dozing As a passenger in a car for an hour without a break Slight chance of dozing Lying down to rest in the afternoon when circumstances permit High chance of dozing When sitting and talking to someone No chance of dozing When sitting quietly after lunch without alcohol Slight chance of dozing In a car, while stopped for a few minutes in traffic No chance of dozing Score (range: 0 - 24) 10 Functional Outcomes Of Sleep Question 05/19/2023 10:00 AM EDT - Filed by Patient Please complete the following questions. Do you have difficulty concentrating because you are sleepy or tired? Yes, a little Do you have difficulty remembering things because you are sleepy or tired? Yes, a little Do you have difficulty operating a motor vehicle for short distances (less than 100 miles) because you become sleepy? No Do you have difficulty operating a motor vehicle for long distances (more than 100 miles) because you become sleepy? Yes, moderate Do you have difficulty visiting family or friends in their home because you become sleepy or tired?No Has your relationship with family, friends, or work colleagues been affected because you are sleepyor tired? No Do youhave difficulty watching a movie or video because you become sleepy or tired? Yes, a little Do you have difficulty being as active as you want to be in the evening because you are tired or sleepy? Yes, moderate Do you have difficulty being as active as you want to be in the morning because you are tired or sleepy? No Has your mood been affected because you are sleepy or tired? Yes, a little Score (range: 10 - 40) 32 Myc Visit Accident Related Question Question 05/19/2023 10:00 AM EDT - Filed by Patient Is this visit related to an accident? (i.e work, motor vehicle) No Sleep Hygiene: Bedroom dark? No, leaves TV on sleep timer Noise? Yes sound from TV Bed partner? no Pets in bed? Sometimes dog Feel safe? yes Air temperature cool? yes Watch TV in bed? yes Clockwatching? no Prior sleep study: yes 2019 AHI of 10-15 PMH: Past Medical History: Diagnosis Date Adjustment disorder with anxiety Anxiety 05/06/2014 Asthma, mild persistent 02/22/2016 Benign neoplasm of pituitary gland (HCC) 2004 2 mm to 6 mm in size 8975-3402. Not seen 2010 Cervical dysplasia Cervical high [...] performed by Kay Dorantes DO at [facility] COLONOSCOPY, DIAGNOSTIC (RECTUM) N/A 05/31/2022 hemorrhoids/two medium sized lipomas ascending colon and cecum/multiple polyps/biopsies show serrated adenomatous polyps/recall 3 years/COLONOSCOPY FLEXIBLE PROXIMAL DIAGNOSTIC performed by Kay Dorantes DO at [facility] COLPOSCOPY OF CERVIX W/BIOPSY 01/2017 negative COLPSCPY CERVIX W/LOOP ELECT DILATION AND CURETTAGE (D&C) EGD, FLEXIBLE, DIAGNOSTIC 01/29/2019 normal bx / [facility] EGD, FLEXIBLE, DIAGNOSTIC N/A 05/19/2020 biopsies normal/ESOPHAGOGASTRODUODENOSCOPY (EGD), FLEXIBLE, TRANSORAL, DIAGNOSTIC performed by MD Melanie at [facility] EGD, FLEXIBLE, DIAGNOSTIC N/A 12/06/2022 normal/ESOPHAGOGASTRODUODENOSCOPY (EGD), FLEXIBLE, TRANSORAL, DIAGNOSTIC performed by Krzysztof Chand MD at [facility] INCISION & DRAINAGE 08/2018 vulvar abscess INFORMATION 10/2003 LASIK OU INFORMATION right foot bunion removal INFORMATION 12/2019 left knee artroscopy, partial meniscus tear INJECT DX/THER SUBSTANCE INTERLAMINAR LUMBAR/SACRAL W IMAGE GUIDE N/A 04/22/2022 INJECTION SPINE LUMBAR OR SACRAL performed by Trista Keane MD at [facility] LAPAROSCOPIC GALLBLADDER SURGERY EDU 2002 PARTIAL REMOVAL,5TH METATARSAL HEAD Right 10/26/2017 OSTECTOMY PARTIAL EXCISION 5TH METATARSAL HEAD BUNIONETTE performed by Jessy Dudley DPM at [facility] REMOVAL OF HEEL SPUR Right 2013; plantar fasciectomy ALLERGIES: Review of patient's allergies indicates: Allergen Reactions Advair Diskus [Fluticasone-Salmeterol] Increased shortness of breathe. Tolerates albuterol. Ibuprofen eyes swell shut Naproxen eyes swells shut Prednisone Rash. Tolerates injectable steroid. Salmeterol Unknown Vanceril [Beclomethasone Dipropionate] Increased shortness of breathe Zithromax [Azithromycin Dihydrate] Feels like hair is standing up on off head MEDS: Outpatient Medications Marked as Taking for the 06/02/23 encounter (Office Visit) with Ilya Quinonez PA-C Medication Sig traZODone HCl 300 MG Oral Tablet (Desyrel) TAKE ONE TABLET BY MOUTH AT BEDTIME busPIRone HCl 10 MG Oral Tablet (Buspar) TAKE ONE TABLET BY MOUTH EVERY MORNING AND 1 TABLET BEFORE BEDTIME Levothyroxine Sodium 150 MCG Oral Tablet (Levoxyl) TAKE ONE TABLET BY MOUTH DAILY AT LEAST 30 MINUTES PRIOR TO THE FIRST MEAL OF THE DAY OR OTHER MEDS Pantoprazole Sodium 40 MG Oral Tablet Delayed Release (Protonix) TAKE ONE TABLET BY MOUTH EVERYDAY 30 MINUTES BEFORE THE FIRST MEAL OF THE DAY. DO NOT CRUSH, CUT OR CHEW Gabapentin 600 MG Oral Tablet (Neurontin) TAKE TWO TABLETS BY MOUTH EVERY MORNING AND TAKE TWO TABLETS BY MOUTH AT BEDTIME Potassium Chloride Jocy ER 20 MEQ Oral Tablet Extended Release TAKE ONE TABLET BY MOUTH EVERY DAY cetirizine (ZYRTEC) 10 MG Tablet Take 1 Tablet by mouth in the morning. DOCUSATE SODIUM 100 MG PO CAPS Take 1 Capsule by mouth in the morning. MULTI-VITAMIN PO TABS Take 1 Tablet by mouth in the morning. GLUCOSAMINE CHONDROITIN COMPLX PO TABS Take 1 Tablet by mouth in the morning. Additional ROS: HEENT: reports chronic sinus problems Heart: denies chest pain, no palpitations Lungs: reports dyspnea, no cough, no wheezing Psych: reports anxiety, depression, PTSD Social hx: Tobacco use: 1 ppd Alcohol use: socially, more in summer Drug use: none Physical Exam: VITAL SIGNS: Filed Vitals: 06/02/23 1502 BP: 133/66 Pulse: 86 Weight: 115.7 kg (255 lb) Height: 1.626 m (5' 4") Body mass index is 43.77 kg/m. GEN: Ambulatory, obese, NAD EYES: No conjunctival icterus or pallor ORAL: Normal dentition Tongue not enlarged Hard palate normal Oral mucous membranes moist OP: No thrush or lesions Uvula normal Soft palate normal Carson 1 Tonsils + MANDIBLE: No retrognathia or prognathia RESP: Unlabored respirations Breath sounds = expiratory wheeze in RUL/RML area CVS: Regular rate and rhythm No murmurs or gallops EXT: No edema NEURO: Normal gait Speech clear and appropriate IMPRESSION/RECOMMENDATIONS: Known hx of TERRI - Need to re-try CPAP. - Discussed the pathophysiology, implications on short- and long-term health, diagnostic evaluation, and likely treatment options of TERRI - Schedule a home sleep apnea test to evaluate for TERRI. Discussed that if the HSAT does not show TERRI, we will recommend in-lab PSG. - If TERRI testing is positive, patient made aware we will start by ordering CPAP, and they will receive notification (via My Chart or phone) of positive test results. They will be contacted by [facility] regarding the CPAP order, and will receive a CPAP from a [employer] company in the following weeks. Once CPAP is received they are to contact our office for a follow up appointment. Made aware to use the machine as much as possible to meet insurance requirement of 70% (at least 4 hours per night).Insurance requires follow-up 30-90 days after starting CPAP. - Avoid driving when sleepy/drowsy. - Discussed the relationship between weight and sleep apnea. Sleep apnea may improve with weight loss. Follow up after See Quinonez PA-C Tobacco use disorder. Strongly encouraged to quit smoking but not feeling ready yet. The following information was reviewed/discussed with the patient: ? Benefits & harms of screening ? Potential indications for follow-up testing, if/when necessary ? Risk of over-diagnosis, false positive findings, and radiation exposure ? Importance of cigarette smoking abstinence, if applicable ? Annual adherence to lung cancer screening ? Impact of comorbidities and ability or willingness to undergo diagnostic testing and/or treatmentif something concerning is identified during screening. documented in this encounter Nursing Notes * Key Bains Srinivas, ROS - 06/02/2023 3:04 PM EDT Dona Mckee Mariusz [id number] Body mass index is 43.77 kg/m. Neck Circumference: 13.75 inches. 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 Reports daytime fatigue. History of TERRI , unable to tolerate CPAP. [place] Sleepiness Scale Question 05/19/2023 9:59 AM EDT - Filed by Patient What is the chance you will doze off in the following situation? Sitting and reading Moderate chance of dozing Watching TV Moderate chance of dozing Sitting inactive in a public place, such as a theater or meeting Slight chance of dozing As a passenger in a car for an hour without a break Slight chance of dozing Lying down to rest in the afternoon when circumstances permit High chance of dozing When sitting and talking to someone No chance of dozing When sitting quietly after lunch without alcohol Slight chance of dozing In a car, while stopped for a few minutes in traffic No chance of dozing Score (range: 0 - 24) 10 Functional Outcomes Of Sleep Question 05/19/2023 10:00 AM EDT - Filed by Patient Please complete the following questions. Do you have difficulty concentrating because you are sleepy or tired? Yes, a little Do you have difficulty remembering things because you are sleepy or tired? Yes, a little Do you have difficulty operating a motor vehicle for short distances (less than 100 miles) because you become sleepy? No Do you have difficulty operating a motor vehicle for long distances (more than 100 miles) because you become sleepy? Yes, moderate Do you have difficulty visiting family or friends in their home because you become sleepy or tired?No Has your relationship with family, friends, or work colleagues been affected because you are sleepyor tired? No Do youhave difficulty watching a movie or video because you become sleepy or tired? Yes, a little Do you have difficulty being as active as you want to be in the evening because you are tired or sleepy? Yes, moderate Do you have difficulty being as active as you want to be in the morning because you are tired or sleepy? No Has your mood been affected because you are sleepy or tired? Yes, a little Score (range: 10 - 40) 32 Myc Visit Accident Related Question Question 05/19/2023 10:00 AM EDT - Filed by Patient Is this visit related to an accident? (i.e work, motor vehicle) No documented in this encounter Plan of Treatment Upcoming Encounters Date Type Specialty Care Team Description 06/07/2023 PulmDiagnostic Sleep Disorders Gl, Sleep Med Home Study [address] [place] [id number] 06/16/2023 Appointment Radiology 07/21/2023 Office Visit Gynecology Obstetrics Mari Amezcua PA-C [address] [facility] [place] [id number] 10/06/2023 Office Visit Family Medicine Shanita Felix PA-C [address] [place] [id number] Scheduled Orders Name Type Priority Associated Diagnoses Orde r Schedule LUNG CANCER SCREENING PROGRAM REFERRAL Medical Imaging Routine History of tobacco abuse Expected: 06/02/2023, Expires: 06/02/2025 HOME SLEEP TEST W/TYPE 4 MONITOR, 3 [...] (Refused) LUNG CANCER SCREENING - USE SMARTSET [id number] 2019 Zoster Vaccines (1 of 2) 2019 [...] as of this encounter Visit Diagnoses Diagnosis History of tobacco abuse- Primary Personal history of tobacco use, presenting hazards to health TERRI (obstructive sleep apnea) Obstructive sleep apnea (adult) (pediatric) documented in [...] the patient have Health Care Power of Railway Signal Operator? No Care Teams Client Renewal Specialist Relationship Specialty Start Date End Date Shanita Felix PA-C [address] [address] [place] [address] PCP - General Physician Sales Representative [employer]estock 11/14/14 documented as of this encounter
--- OUTSIDE RECORDS SUMMARY | 2023-09-25 05:23 | External Medical Summary | Summary of Care ---
Author Name Unknown Organization [facility] Address [address] [place] [address] Phone [phone] Care Team Providers Care Parts Counter Representative Name Role Phone Isidro Shanita Treadwell PA-C Primary Care Provider +1- [phone] Reason for Referral * Precert (Within 10 days (routine)) - Pending Review Specialty Diagnoses / Procedures Referred By Contac t Referred To Contact Radiology Diagnoses Bilateral primary osteoarthritis of knee Procedures MRI KNEE RIGHT WO CONTRAST Giles Crook PA-C [address] [place] [address] Referral ID Status Reason Start Date Expiration Date V isits Requested Visits Authorized [id number] Pending Review 04/12/2023 999 999 Reason for Visit * Precert (Within 10 days (routine)) - Pending Review Specialty Diagnoses / Procedures Referred By Jasbir dailey Referred To Contact Radiology Diagnoses Bilateral primary osteoarthritis of knee Procedures MRI KNEE RIGHT WO CONTRAST Giles Crook PA-C [address] [place] [address] Referral ID Status Reason Start Date Expiration Date V isits Requested Visits Authorized [id number] Pending Review 04/12/2023 999 999 Encounter Details Date Type Department Care Team Description 04/28/2023 Hospital Encounter Radiology, [address] [place] [address] Arrived Allergies Active Allergy Reactions Severity Noted [...] as of this encounter (statuses as of 04/29/2023) Medications Medication Sig Dispensed Refills Start Date [...] as of this encounter (statuses as of 04/29/2023) Active Problems Problem Noted Date COPD, group [...] as of this encounter (statuses as of 04/29/2023) Resolved Problems Problem Noted Date Resolved Date [...] in 2003. Intolerant of Meds. Microadenoma resolved [id number] MRI. 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 Variable sizes reported from 2 to 6 mm over the years. Then in January 2011 MRI at [facility], no nodule seen. Hand joint pain 10/22/2008 02/11/2011 Asthma, allergic 04/14/2017 documented as of this encounter (statuses as of 04/29/2023) Immunizations Name Administration Dates Next Due Seasonal [...] Encounters Date Type Specialty Care Team Description 06/02/2023 Office Visit Sleep Disorders Ilya Quinonez PA-C [address] [place] [id number] 06/16/2023 Appointment Radiology 07/21/2023 Office Visit Gynecology Obstetrics Mari Amezcua PA-C [address] [place] [phone] 10/06/2023 Office Visit Family Medicine Shanita Felix PA-C [address] [place] [address] Scheduled Procedures Name Priority Associated Diagnoses Date/Ti [...] (Refused) LUNG CANCER SCREENING - USE SMARTSET 81632 2019 Zoster Vaccines (1 of 2) 2019 [...] Procedure Name Priority Date/Time Associated Diagnosis Comments MRI KNEE RIGHT WO CONTRAST Routine 04/28/2023 7:31 AM EDT Bilateral primary osteoarthritis of knee documented in this encounter Results * MRI KNEE RIGHT WO CONTRAST (04/28/2023 7:31 AM EDT) Anatomical Region Laterality Modality Knee, Lower Extremity Magnetic R esonance 04/28/2023 2:47 PM EDT Impressions 04/28/2023 2:45 PM EDT IMPRESSION 1. Tricompartmental osteoarthritis, severe in the patellofemoral compartment. 2. Horizontal tear of the posterior horn of the medial meniscus. 3. Carlson's cyst. Narrative 04/28/2023 2:45 PM EDT EXAM MRI KNEE RIGHT WO CONTRAST-RT 04/28/2023 7:31 am HISTORY Provided clinical history: "bilateral primary osteoarthritis of knee" COMPARISON Right knee MRI dated July 20, 2018. TECHNIQUE Multiplanar, multi-sequence MRI of the right knee was performed without IV contrast. FINDINGS Menisci: Horizontal tear of the posterior horn of the medial meniscus. Cruciate Ligaments: Intact. Collateral Ligaments: Medial collateral ligament is intact. Visualized posterolateral corner complex structures (including the fibular collateral ligament proper, biceps femoris tendon, and popliteus tendon) are intact. Extensor Mechanism: Quadriceps and patellar tendons are intact. Medial and lateral extensor retinacula are intact. Muscles, Tendons, and Neurovascular Structures: Regional musculature is normal in bulk and signal intensity. Visualized tendons are intact. Visualized portions of the tibial and common peroneal nerves are grossly normal in size and signal intensity. Popliteal vessels are unremarkable. Bone and Cartilage: Tricompartmental osteoarthritis, severe in the patellofemoral compartment. No fracture or bone lesion identified. Miscellaneous: Carlson's cyst. Small joint effusion. Procedure Note Bigger, Lior Fraire MD - 04/28/2023 EXAM MRI KNEE RIGHT WO CONTRAST-RT 04/28/2023 7:31 am HISTORY Provided clinical history: "bilateral primary osteoarthritis of knee" COMPARISON Right knee MRI dated July 20, 2018. TECHNIQUE Multiplanar, multi-sequence MRI of the right knee was performed without IVcontrast. FINDINGS Menisci: Horizontal tear of the posterior horn of the medial meniscus. Cruciate Ligaments: Intact. Collateral Ligaments: Medial collateral ligament is intact. Visualizedposterolateral corner complex structures (including the fibular collateralligament proper, biceps femoris tendon, and popliteus tendon) areintact. Extensor Mechanism: Quadriceps and patellar tendons are intact. Medial andlateral extensor retinacula are intact. Muscles, Tendons, and Neurovascular Structures: Regional musculature isnormal in bulk and signal intensity. Visualized tendons are intact.Visualized portions of the tibial and common peroneal nerves are grosslynormal in size and signal intensity. Popliteal vessels are unremarkable. Bone and Cartilage: Tricompartmental osteoarthritis, severe in thepatellofemoral compartment. No fracture or bone lesion identified. Miscellaneous: Carlson's cyst. Small joint effusion. IMPRESSION IMPRESSION 1. Tricompartmental osteoarthritis, severe in the patellofemoralcompartment. 2. Horizontal tear of the posterior horn of the medial meniscus. 3. Carlson's cyst. Giles Crook PA-C RAD MRI-MRA documented in this encounter Visit Diagnoses Diagnosis Bilateral primary osteoarthritis of knee documented in this encounter Advance Directives Latest [...] the patient have Health Care Power of Sugar Reprocess Operator Head? No Care Teams Parts Counter Representative Relationship Specialty Start Date End Date Shanita Felix PA-C [address] [facility] [place] [address] PCP - General Physician Supervisor Cutting And Sewing Room 11/14/14 documented as of this encounter
--- OUTSIDE RECORDS SUMMARY | 2023-09-25 05:23 | External Medical Summary | Summary of Care ---
Author Name Unknown Organization [facility] Address [address] [place] [address] Phone [phone] Care Team Providers Care Continuing Education Dean Name Role Phone Shanita Felix Eben COTTON Primary Care Provider +1- [phone] Reason for Referral * Precert (Within 10 days (routine)) - Pending Review Specialty Diagnoses / Procedures Referred By Jasbir dailey Referred To Contact Radiology Diagnoses Bilateral primary osteoarthritis of knee Procedures MRI KNEE RIGHT WO CONTRAST Giles Crook PA-C [address] [place] [address] Referral ID Status Reason Start Date Expiration Date V isits Requested Visits Authorized [id number] Pending Review 04/12/2023 999 999 Encounter Details Date Type Department Care Team Description 04/05/2023 Orders Only Radiology, [facility] [address] [place] [address] Requisition, External Radiology [address] [place] [address] Bilateral primary osteoarthritis of knee* Allergies Active Allergy Reactions Severity Noted Date Comments Fluticasone-Salmeterol 04/03/2014 Increased shortness of breathe. Tolerates albuterol. Ibuprofen 07/21/2004 eyes swell shut Naproxen 07/21/2004 eyes swells shut Prednisone 07/21/2004 Rash. Tolerates injectable steroid. Salmeterol Unknown 08/05/2014 Beclomethasone Dipropionate 04/03/20 14 Increased shortness of breathe Azithromycin Dihydrate 12/01/2008 Feels like hair is standing up on off head documented as of this encounter (statuses as of 04/05/2023) Medications Medication Sig Dispensed Refills Start Date [...] AT BEDTIME 360 Tablet 3 06/28/2022 Active traZODone HCl 300 MG Oral Tablet (Desyrel)Indications :Recurrent major depressive disorder, in partial remission (HCC) TAKE ONE TABLET BY MOUTH AT BEDTIME 90 Tablet 2 04/18/2022 3 Active Pantoprazole Sodium 40 MG Oral [...] before bedtime. 180 Tablet 2 03/31/2023 Active documented as of this encounter (statuses as of 04/05/2023) Active Problems Problem Noted Date COPD, group [...] as of this encounter (statuses as of 04/05/2023) Resolved Problems Problem Noted Date Resolved Date [...] in 2003. Intolerant of Meds. Microadenoma resolved [id number] MRI. 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 Variable sizes reported from 2 to 6 mm over the years. Then in January 2011 MRI at [facility], no nodule seen. Hand joint pain 10/22/2008 02/11/2011 Asthma, allergic 04/14/2017 documented as of this encounter (statuses as of 04/05/2023) Immunizations Name Administration Dates Next Due Seasonal [...] Visit Sleep Disorders Ilya Quinonez PA-C [address] [place] [phone] 06/16/2023 Appointment Radiology 07/21/2023 Office Visit Gynecology Obstetrics Mari Amezcua PA-C [address] [place] [phone] 10/06/2023 Office Visit Family Medicine Shanita Felix PA-C [address] [place] [address] Scheduled Orders Name Type Priority Associated Diagnoses Orde r Schedule MRI KNEE RIGHT WO CONTRAST Medical Imaging Routine Bilateral primary osteoarthritis of knee Expected: 04/12/2023, Expires: 05/05/2024 Scheduled Procedures Name Priority Associated Diagnoses Date/Ti me COLONOSCOPY FLEXIBLE PROXIMA L DIAGNOSTIC Recall History of colonic polyps Health Maintenance Due Date Last Done Comments COVID-19 Vaccine (#1) 1969 Pneumococcal Vaccine: Pediatrics (0 to 5 Years) and At-Risk Patients (6 to 64 Years) (1 - PCV) 1975 Alpha-1 Antitrypsin 1987 DISCUSS TOBACCO CESSATION (REFER TO SMARTSET #4231) 08/26/2016 08/26/2015 (Refused) LUNG CANCER SCREENING - USE SMARTSET 63007 2019 Zoster Vaccines (1 of 2) 2019 Depression Screening, Annual for Pts 12 and Over 07/09/2022 07/09/2021, 08/26/2015 (Discussed) Mammogram 06/10/2023 06/10/2022, 07, 05/29/2020, Additional history exists Influenza Vaccine (FLU [...] of this encounter Visit Diagnoses Diagnosis Bilateral primary osteoarthritis of knee- Primary documented in this encounter Advance Directives [...] the patient have Health Care Power of Tipple Repairer? No Care Teams Continuing Education Dean Relationship Specialty Start Date End Date Shanita Felix PA-C [address] [place] [address] PCP - General Physician Sheriff'S Sergeant 11/14/14 documented as of this encounter
--- OUTSIDE RECORDS SUMMARY | 2023-09-25 05:23 | External Medical Summary | Summary of Care ---
Author Name Unknown Organization [facility] Address [address] [place] [address] Phone [phone] Care Team Providers Care Television Production Assistant Name Role Phone Shanita Felix PA-C Primary Care Provider +1- [phone] Reason for Visit * Reason Onset Date Comments Medication Refill 06/12/2023 Encounter Details Date Type Department Care Team Description 06/12/2023 Refill [place] [address] [place] [address] Shanita Felix PA-C [facility] [address] [place] [address] Allergies Active Allergy Reactions Severity Noted Date Comments Fluticasone-Salmeterol 04/03/2014 Increased shortness of breathe. Tolerates albuterol. Ibuprofen 07/21/2004 eyes swell shut Naproxen 07/21/2004 eyes swells shut Prednisone 07/21/2004 Rash. Tolerates injectable steroid. Salmeterol Unknown 08/05/2014 Beclomethasone Dipropionate 04/03/20 14 Increased shortness of breathe Azithromycin Dihydrate 12/01/2008 Feels like hair is standing up on off head documented as of this encounter (statuses as of 06/12/2023) Medications Medication Sig Dispensed Refills Start Date End Date Status GLUCOSAMINE CHONDROITIN COMPLX PO TABS Take 1 Tablet by mouth in the morning. 0 Active DOCUSATE SODIUM 100 MG PO CAPS Take 1 Capsule by mouth in the morning. 0 Active MULTI-VITAMIN PO TABS Take 1 Tablet by mouth in the morning. 0 Active STANDARD TENS DEVIIndications:Tho racic or lumbosacral neuritis or radiculitis, unspecified apply daily as needed to back 1 Device 0 11/14/2014 Active Additional Information Patient not taking.Reported on 10/03/2022 cetirizine (ZYRTEC) 10 MG Tablet Take 1 Tablet by mouth in the morning. 0 Active Potassium Chloride Jocy ER 20 MEQ Oral Tablet Extended ReleaseIndications: Hypopotassemia TAKE ONE TABLET BY MOUTH EVERY DAY 90 Tablet 3 05/20/2022 Active Ventolin HFA 108 (90 Base) MCG/ACT Inhalation Aerosol SolutionIndications :Mild persistent asthma without complication Inhale 2 Puffs [...] Active busPIRone HCl 10 MG Oral Tablet (Buspar)Indications :NOMI (generalized anxiety disorder) TAKE ONE TABLET BY MOUTH EVERY MORNING AND 1 TABLET BEFORE BEDTIME 180 Tablet 2 03/31/2023 4 Active Levothyroxine Sodium 150 MCG Oral Tablet (Levoxyl)Indication s:Acquired hypothyroidism TAKE ONE TABLET BY MOUTH DAILY AT LEAST 30 MINUTES PRIOR TO THE FIRST MEAL OF THE DAY OR OTHER MEDS 90 Tablet 3 10/19/2022 3 Active Pantoprazole Sodium 40 MG Oral Tablet Delayed Release (Protonix)Indicatio ns:GERD (gastroesophageal reflux disease) TAKE ONE TABLET BY MOUTH EVERY DAY 30 MINUTES BEFORE THE FIRST MEAL OF THE DAY. DO NOT CRUSH, CUT OR CHEW 90 Tablet 1 10/18/2022 3 Active Gabapentin 600 MG Oral Tablet (Neurontin)Indicati ons:Other chronic pain TAKE TWO TABLETS BY MOUTH EVERY MORNING AND TAKE TWO TABLETS BY MOUTH AT BEDTIME 360 Tablet 3 06/28/2022 3 Active HYDROcodone-Acetami nophen 5-325 MG Oral Tablet Take 1 Tablet by mouth every 6 hours as needed for Pain, Moderate. 30 Tablet 0 06/12/2023 Active HYDROcodone-Acetami nophen 5-325 MG Oral Tablet Take 1 Tablet by mouth every 6 hours as needed for Pain, Moderate. 30 Tablet 0 10/20/2022 3 Discontinu ed(Refill) documented as of this encounter (statuses as of 06/12/2023) Active Problems Problem Noted Date COPD, group [...] as of this encounter (statuses as of 06/12/2023) Resolved Problems Problem Noted Date Resolved Date [...] in 2003. Intolerant of Meds. Microadenoma resolved [id number] MRI. 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 Variable sizes reported from 2 to 6 mm over the years. Then in January 2011 MRI at [facility], no nodule seen. Hand joint pain 10/22/2008 02/11/2011 Asthma, allergic 04/14/2017 documented as of this encounter (statuses as of 06/12/2023) Immunizations Name Administration Dates Next Due Seasonal [...] encounter Miscellaneous Notes * Telephone Encounter - Palomo Zhao MD - 06/12/2023 3:13 PM EDT Signed Prescriptions: Disp Refills HYDROcodone-Acetaminophen 5-325 MG Oral Ta*30 Tab*0 Sig: Take 1 Tablet by mouth every 6 hours as needed for Pain, Moderate.Authorizing Provider: PALOMO ZHAO * Telephone Encounter - Mony Mcgill LPN - 06/12/2023 2:00 PM EDTPending Prescriptions: Disp Refills HYDROcodone-Acetaminophen 5-325 MG Oral Ta*30 Tab*0 Sig: Take 1 Tablet by mouth every 6 hours as needed for Pain, Moderate. * Telephone Encounter - Mony Mcgill LPN - 06/12/2023 1:59 PM EDT Did you pend patient's preferred pharmacy and medication before forwarding?yes Pharmacy: [id number] [address] Pending Prescriptions: Disp Refills HYDROcodone-Acetaminophen 5-325 MG Oral T*30 Tab*0 Sig: Take 1 Tablet by mouth every 6 hours as needed for Pain, Moderate. Last Visit: 03/31/2023 (in office), Visit date not found (telemedicine) Next Visit: 10/06/2023 If no future appointments scheduled, and last appointment is greater than a year ago, please schedule patient for a follow-up appointment Last date the medication was ordered: 10/20/2022 Is this request for a controlled substance?Yes, What was the last refill date 10/20/2022 w/ quantity 30 and dosage 1 tab q6 hours prn and Urine Drug Screen Not completed Urine Drug Screen: Results for orders placed [...] Labs: Lab Results Component Value Date/Time CREAT 1.0 03/04/2023 11:06 AM CREAT 1.0 05/19/2020 07:23 PM POTASSIUM 4.2 03/04/2023 11:06 AM POTASSIUM 3.5 05/19/2020 07:23 PM TSH [...] Visit Gynecology Obstetrics Mari Amezcua PA-C [address] [facility] [place] [address] 10/06/2023 Office Visit Family Medicine Shanita Felix PA-C [address] [address] [place] [address] Scheduled Procedures Name Priority Associated Diagnoses Date/Ti [...] exists LUNG CANCER SCREENING - USE SMARTSET 29891 Completed 06/09/2023 GARDASIL-HPV IMMUNIZATION SERIES Aged Out [...] the patient have Health Care Power of Liquor Bridge Operator Helper? No Care Teams Television Production Assistant Relationship Specialty Start Date End Date Shanita Felix, PA-C [address] [facility] [address] [place] [address] PCP - General Physician Wheel Braider 11/14/14 documented as of this encounter
--- OUTSIDE RECORDS SUMMARY | 2023-09-25 05:23 | External Medical Summary | Summary of Care ---
Author Name Unknown Organization [facility] Address [address] [place] [address] Phone [phone] Care Team Providers Care Structures Technician Name Role Phone Isidro Shanita Treadwell PA-C Primary Care Provider +1- [phone] Reason for Referral * (Within 10 days (routine)) - Pending Review Specialty Diagnoses / Procedures Referred By Jasbir t Referred To Contact Radiology Diagnoses History of tobacco abuse Procedures CT CHEST LOW DOSE SCAN LUNG CANCER SCREEN INITIAL LUNG CANCER SCREENING PROGRAM REFERRAL Ilya Quinonez PA-C [address] [place] [address] Referral ID Status Reason Start Date Expiration Date V isits Requested Visits Authorized [id number] Pending Review 06/02/[phone] Reason for Visit * (Within 10 days (routine)) - Pending Review Specialty Diagnoses / Procedures Referred By Jasbir dailey Referred To Contact Radiology Diagnoses History of tobacco abuse Procedures CT CHEST LOW DOSE SCAN LUNG CANCER SCREEN INITIAL LUNG CANCER SCREENING PROGRAM REFERRAL Ilya Quinonez PA-C [address] [place] [address] Referral ID Status Reason Start Date Expiration Date V isits Requested Visits Authorized [id number] Pending Review 06/02/2023 999 999 Encounter Details Date Type Department Care Team Description 06/09/2023 Hospital Encounter Radiology, [facility] [address] [place] [address] Arrived Allergies Active Allergy Reactions Severity Noted [...] as of this encounter (statuses as of 06/10/2023) Medications Medication Sig Dispensed Refills Start Date [...] as of this encounter (statuses as of 06/10/2023) Active Problems Problem Noted Date COPD, group [...] as of this encounter (statuses as of 06/10/2023) Resolved Problems Problem Noted Date Resolved Date [...] Hyperlipidemia 04/15/2015 08/26/2015 Incomplete bladder emptying 12/01/2014 06/07/2017 Pain in limb 07/02/2014 01/27/2017 Migraine 05/06/2014 08/26/2015 Depression 05/06/2014 10/10/2019 Thoracic or lumbosacral neuritis or radiculitis, unspecified 05/06/2014 04/14/2017 Obesity, Class II, BMI 35-39.9, isolated (see ac tual BMI) 04/19/2010 04/14/2017 Overview: Per Obesity Protocol, #19 Hyperpituitarism 02/08/2010 01/27/2017 Overview: Prolactin level 111 in 2003. Intolerant of Meds. Microadenoma resolved [id number] MRI. 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 Variable sizes reported from 2 to 6 mm over the years. Then in January 2011 MRI at [facility] [place], no nodule seen. Hand joint pain 10/22/2008 02/11/2011 Asthma, allergic 04/14/2017 documented as of this encounter (statuses as of 06/10/2023) Immunizations Name Administration Dates Next Due Seasonal [...] Visit Gynecology Obstetrics Mari Amezcua PA-C [address] [facility] [place], [place] [id number] 10/06/2023 Office Visit Family Medicine Shanita Felix PA-C [address] [place] [address] Pending Results Name Type Priority Associated Diagnoses Date /Time CT CHEST LOW DOSE SCAN LUNG CANCER SCREEN INITIAL Medical Imaging Routine History of tobacco abuse 06/09/2023 3:41 PM EDT Scheduled Orders Name Type Priority Associated Diagnoses Orde r Schedule CT CHEST LOW DOSE SCAN LUNG CANCER SCREEN INITIAL Medical Imaging Routine History of tobacco abuse 1 Occurrences starting 06/09/2023 until 06/09/2023 Scheduled Procedures Name Priority Associated Diagnoses Date/Ti me COLONOSCOPY FLEXIBLE PROXIMA L DIAGNOSTIC Recall History of colonic polyps Health Maintenance Due Date Last Done Comments COVID-19 Vaccine (#1) 1969 Pneumococcal Vaccine: Pediatrics (0 to 5 Years) and At-Risk Patients (6 to 64 Years) (1 - PCV) 1975 Alpha-1 Antitrypsin 1987 HPV/Co-Test 1999 DISCUSS TOBACCO CESSATION (REFER TO SMARTSET #7929) 08/26/2016 08/26/2015 (Refused) LUNG CANCER SCREENING - USE SMARTSET 96146 2019 Zoster Vaccines (1 of 2) 2019 [...] encounter Visit Diagnoses Diagnosis History of tobacco abuse Personal history of tobacco use, presenting hazards to health documented in this encounter Advance Directives Latest [...] patient have Health Care Power of Die Storage Worker? No Care Teams Structures Technician Relationship Specialty Start Date End Date Shanita Felix PA-C [address] [facility] [address] [place] [address] PCP - General Physician Welfare Service Aide 11/14/14 documented as of this encounter
--- OUTSIDE RECORDS SUMMARY | 2023-09-25 05:23 | External Medical Summary | Summary of Care ---
Author Name Unknown Organization [facility] Address [address] [place] [address] Phone [phone] Care Team Providers Care C Architect Name Role Phone Shanita Felix PA-C Primary Care Provider +1- [phone] Reason for Visit * Reason Onset Date Comments Test Results 06/22/2023 Encounter Details Date Type Department Care Team Description 06/22/2023 Telephone [place] [address] [place], [place] [id number] Shanita Felix PA-C [facility] [address] [place] [address] Test Results Allergies Active Allergy Reactions Severity [...] in 2003. Intolerant of Meds. Microadenoma resolved [id number] MRI. 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 Variable sizes reported from 2 to 6 mm over the years. Then in January 2011 MRI at [facility], no nodule seen. Hand joint [...] encounter Miscellaneous Notes * Telephone Encounter - Shanita Felix PA-C - 06/22/2023 8:27 AM EDT Radiology letter sent with normal mammogram results. Please schedule annual. documented in this encounter Plan of Treatment Upcoming Encounters Date Type Specialty Care Team Description 07/21/2023 Office Visit Gynecology Obstetrics Mari Amezcua PA-C [address] [place] [address] 10/06/2023 Office Visit Family Medicine Shanita Felix PA-C [address] [address] [facility] [id number] Scheduled Orders Name Type Priority Associated Diagnoses [...] exists LUNG CANCER SCREENING - USE SMARTSET 74523 Completed 06/09/2023 GARDASIL-HPV IMMUNIZATION SERIES Aged Out [...] the patient have Health Care Power of Dev Ops Engineer? No Care Teams C Architect Relationship Specialty Start Date End Date Shanita Felix PA-C [address] [facility] [address] [place] [address] PCP - General Physician Highway Traffic Control Technician 11/14/14 documented as of this encounter
--- OUTSIDE RECORDS SUMMARY | 2023-09-25 05:23 | External Medical Summary | Summary of Care ---
Author Name Unknown Organization [facility] Address [address] [place] [address] Phone [phone] Care Team Providers Care Air Quality Consultant Name Role Phone IsidroJassiShanitajustin Treadwell PA-C Primary Care Provider [phone]- [phone] Reason for Visit * Reason Onset Date Comments Films 05/03/2023 Encounter Details Date Type Department Care Team Description 05/03/2023 Telephone Radiology Film File [address] [place], [place] [id number] Giles Crook PA-C [address] [place] [address] Films Allergies Active Allergy Reactions Severity Noted Date Comments Fluticasone-Salmeterol 04/03/2014 Increased shortness of breathe. Tolerates albuterol. Ibuprofen 07/21/2004 eyes swell shut Naproxen 07/21/2004 eyes swells shut Prednisone 07/21/2004 Rash. Tolerates injectable steroid. Salmeterol Unknown 08/05/2014 Beclomethasone Dipropionate 04/03/20 14 Increased shortness of breathe Azithromycin Dihydrate 12/01/2008 Feels like hair is standing up on off head documented as of this encounter (statuses as of 05/03/2023) Medications Medication Sig Dispensed Refills Start Date [...] as of this encounter (statuses as of 05/03/2023) Active Problems Problem Noted Date COPD, group [...] as of this encounter (statuses as of 05/03/2023) Resolved Problems Problem Noted Date Resolved Date [...] in 2003. Intolerant of Meds. Microadenoma resolved [id number] MRI. 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 Variable sizes reported from 2 to 6 mm over the years. Then in January 2011 MRI at [facility], no nodule seen. Hand joint pain 10/22/2008 02/11/2011 Asthma, allergic 04/14/2017 documented as of this encounter (statuses as of 05/03/2023) Immunizations Name Administration Dates Next Due Seasonal [...] Miscellaneous Notes * Telephone Encounter - TERRI Thomas - 05/03/2023 1:33 PM EDT [facility] requesting 04-28-23 images be pushed to their system. [place] Authorization to Release on file. Images pushed to [facility] Sender [employer] Image system, Job ID: [id number] Report(s) faxed to [phone]. Successful fax confirmation received. documented in this encounter Plan of Treatment Upcoming Encounters Date Type Specialty Care Team Description 06/02/2023 Office Visit [facility] Disorders [facility] [address] [facility] [place] [id number] 06/16/2023 Appointment Radiology 07/21/2023 Office Visit Gynecology Obstetrics Mari Amezcua [facility] [address] [facility] [place] [id number] 10/06/2023 Office Visit Family Medicine Shanita Felix PA-C [address] [place] [address] Scheduled Procedures Name Priority Associated Diagnoses Date/Ti me COLONOSCOPY FLEXIBLE PROXIMA L DIAGNOSTIC Recall History of colonic polyps Health Maintenance Due Date Last Done Comments COVID-19 Vaccine (#1) 1969 Pneumococcal Vaccine: Pediatrics (0 to 5 Years) and At-Risk Patients (6 to 64 Years) (1 - PCV) 1975 Alpha-1 Antitrypsin 1987 DISCUSS TOBACCO CESSATION (REFER TO SMARTSET #0699) 08/26/2016 08/26/2015 (Refused) LUNG CANCER SCREENING - USE SMARTSET 74471 2019 Zoster Vaccines (1 of 2) 2019 [...] the patient have Health Care Power of Biomedical Technician? No Care Teams Air Quality Consultant Relationship Specialty Start Date End Date Shanita Felix PA-C [address] [place] [id number] PCP - General Physician Customer Service Manager 11/14/14 documented as of this encounter
--- OUTSIDE RECORDS SUMMARY | 2023-09-25 05:23 | External Medical Summary | Summary of Care ---
Author Name Unknown Organization [facility] Address [address] [place] [address] Phone [phone] Care Team Providers Care Simplex Operator Name Role Phone Maribel Felix PA-C Primary Care Provider +1- [phone] Reason for Visit * Reason Comments Medication Refill Encounter Details Date Type Department Care Team Description 06/12/2023 Refill [place] [address] [place] [address] Maribel Felix PA-C [facility] [address] [place] [address] GERD (gastroesophageal reflux disease) Allergies Active Allergy Reactions Severity Noted Date [...] CHEW 90 Tablet 1 06/12/2023 4 Active Pantoprazole Sodium 40 MG Oral Tablet Delayed Release (Protonix)Indicatio ns:GERD (gastroesophageal reflux disease) TAKE ONE TABLET BY MOUTH EVERY DAY 30 MINUTES BEFORE THE FIRST MEAL OF THE DAY. DO NOT CRUSH, CUT OR CHEW 90 Tablet 1 10/18/2022 3 Discontinu ed(Refill) documented as of this [...] in 2003. Intolerant of Meds. Microadenoma resolved [id number] MRI. 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 Variable sizes reported from 2 [...] encounter Miscellaneous Notes * Telephone Encounter - Jericho [facility] - 06/12/2023 3:35 PM EDTSigned Prescriptions: Disp Refills Pantoprazole Sodium 40 MG Oral Tablet Alyse*90 Tab*1 Sig: TAKE ONE TABLET BY MOUTH EVERY DAY 30 MINUTES BEFORE THE FIRST MEAL OF THE DAY. DO NOT CRUSH, CUT OR CHEWAuthorizing Provider: MARIBEL FELIX User: JERICHO FARNSWORTH documented in this encounter Plan of Treatment Upcoming Encounters Date Type Specialty Care Team Description 06/16/2023 Appointment Radiology 07/21/2023 Office Visit Gynecology Obstetrics Mari Amezcua PA-C [address] [facility] [place] [phone] 10/06/2023 Office Visit Family Medicine Maribel Felix PA-C [address] [place] [address] [place] [address] Scheduled Procedures Name Priority Associated Diagnoses Date/Ti me COLONOSCOPY FLEXIBLE PROXIMA L DIAGNOSTIC Recall History of colonic polyps Health Maintenance Due Date Last Done Comments COVID-19 Vaccine (#1) 1969 Pneumococcal Vaccine: Pediatrics (0 to 5 Years) and At-Risk Patients (6 to 64 Years) (1 - PCV) 1975 Alpha-1 Antitrypsin 1987 HPV/Co-Test 1999 DISCUSS TOBACCO CESSATION (REFER TO SMARTSET #2155) 08/26/2016 08/26/2015 (Refused) Zoster Vaccines (1 of [...] exists LUNG CANCER SCREENING - USE SMARTSET 89439 Completed 06/09/2023 GARDASIL-HPV IMMUNIZATION SERIES Aged Out No longer eligible based on patient's age to complete this topic MENINGOCOCCAL (MENACTRA/MENVEO) Aged Out No longer eligible based on patient's age to complete this topic documented as of this encounter Medical Devices Not on filedocumented as of this encounter Visit Diagnoses Diagnosis GERD (gastroesophageal reflux disease) Esophageal reflux documented in this encounter Advance Directives Latest [...] the patient have Health Care Power of Storage Management Consultant? No Care Teams Simplex Operator Relationship Specialty Start Date End Date Maribel Felix PA-C [address] [facility] [address] [place] [id number] PCP - General Physician Grain [employer] Supervisor 11/14/14 documented as of this encounter
--- OUTSIDE RECORDS SUMMARY | 2023-09-25 05:23 | External Medical Summary | Summary of Care ---
Author Name Unknown Organization [facility] Address [address] [place] [address] Phone [phone] Care Team Providers Care Supervising Editor News Reel Name Role Phone Maribel Felix PA-C Primary Care Provider [phone]- [phone] Reason for Visit * Reason Comments eRx-Medication Refill Encounter Details Date Type Department Care Team Description 04/22/2023 Refill [place] [address] [place] [address] [phone] Maribel Felix PA-C [facility] [address] [place] [id number] Allergies Active Allergy Reactions Severity Noted Date [...] in 2003. Intolerant of Meds. Microadenoma resolved [id number] MRI. 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 Variable sizes reported from 2 [...] encounter Miscellaneous Notes * Telephone Encounter - Soraida Hendricks [facility] - 04/22/2023 8:24 AM EDTSigned Prescriptions: Disp Refills traZODone HCl 300 MG Oral Tablet (Desyrel) 90 Tab*1 Sig: TAKE ONE TABLET BY MOUTH AT BEDTIMEAuthorizing Provider: MARIBEL FELIX User: SORAIDA HENDRICKS documented in this encounter Plan of Treatment Upcoming Encounters Date Type Specialty Care Team Description 04/28/2023 Appointment Radiology 06/02/2023 Office Visit Sleep Disorders [facility]ly[facility]z [facility]C [address] [facility] [place] [id number] 06/16/2023 Appointment Radiology 07/21/2023 Office Visit Gynecology Obstetrics Mari [facility]zcua [facility]-C [address] [facility] [place] [phone] 10/06/2023 Office Visit Family Medicine Maribel Felxi PA-C [address] [place] [address] Scheduled Procedures Name Priority Associated Diagnoses Date/Ti [...] (Refused) LUNG CANCER SCREENING - USE SMARTSET 72628 2019 Zoster Vaccines (1 of 2) 2019 [...] the patient have Health Care Power of Cable Hooker? No Care Teams Supervising Editor News Reel Relationship Specialty Start Date End Date Maribel Felix, LULA [address] [place] [address] PCP - General Physician Underwriting Operations Manager 11/14/14 documented as of this encounter
--- OUTSIDE RECORDS SUMMARY | 2023-09-25 05:24 | External Medical Summary | Summary of Care ---
Author Name Unknown Organization [facility] Address [address] [place] [address] Phone [phone] Care Team Providers Care Commercial Service Technician Name Role Phone Shanita Felix PA-C Primary Care Provider [phone] Reason for Referral * Evaluate & Treat - Unlimited Visits (Within 30 days (routine)) - Authorized Specialty Diagnoses / Procedures Referred By Jasbir dailey Referred To Contact Sleep Medicine / Sleep Disorders Diagnoses TERRI (obstructive sleep apnea) Shanita Felix PA-C [address] [place] [address] Referral ID Status Reason Start Date Expiration Date Visits Requested Visits Authorized [id number] Authorized Specialty Services Required 03/31/2023 2 2 Question Answer Referral Priority Within 30 days (routine) [facility] SLEEP MED ADULT REFERRAL Sleep Apnea Testing and Management Does the patient snore and/or gasp at night or has been told they stop breathing at night? Yes Reason for Visit * Reason Comments Follow Up 4 mo Encounter Details Date Type Department Care Team Description 03/31/2023 Office Visit [place] [address] [place] [address] Shanita Felix PA-C [address] [id number] Moderate episode of recurrent major depressive disorder (HCC)*; TERRI (obstructive sleep apnea); Mild persistent asthma without complication; Migraine without aura and without status migrainosus, not intractable; Acquired hypothyroidism; Hyperprolactinemia ([facility]); Hyperlipidemia with target LDL less than 130; HTN, goal below 140/90; Gastroesophageal reflux disease without esophagitis; Generalized osteoarthritis of multiple sites; NOMI (generalized anxiety disorder); Fibromyalgia; Class 3 severe obesity due to excess calories with serious comorbidity and body mass index (BMI) of 40.0 to 44.9 in adult ([facility]); Pulmonary emphysema, unspecified emphysema type ([facility]) Allergies Active Allergy Reactions Severity Noted Date Comments Fluticasone-Salmeterol 04/03/2014 Increased shortness of breathe. Tolerates albuterol. Ibuprofen 07/21/2004 eyes swell shut Naproxen 07/21/2004 eyes swells shut Prednisone 07/21/2004 Rash. Tolerates injectable steroid. Salmeterol Unknown 08/05/2014 Beclomethasone Dipropionate 04/03/20 14 Increased shortness of breathe Azithromycin Dihydrate 12/01/2008 Feels like hair is standing up on off head documented as of this encounter (statuses as of 03/31/2023) Medications Medication Sig Dispensed Refills Start Date [...] as needed to back 1 Device 0 5 Active Additional Information Patient not taking.Reported on 10/03/2022 cetirizine (ZYRTEC) 10 MG Tablet Take 1 Tablet by mouth in the morning. 0 Active hydroCHLOROthiazide 50 MG Oral Tablet (Hydrodiuril)Indica tions:Bilateral edema of lower extremity,HTN, goal below 140/90 TAKE ONE TABLET BY MOUTH EVERY DAY 90 Tablet 3 2 Active Potassium Chloride Jocy ER 20 MEQ Oral Tablet Extended ReleaseIndications: Hypopotassemia TAKE ONE TABLET BY MOUTH EVERY DAY 90 Tablet 3 2 Active Gabapentin 600 MG Oral Tablet (Neurontin)Indicati ons:Other chronic pain TAKE TWO TABLETS BY MOUTH EVERY MORNING AND TAKE TWO TABLETS BY MOUTH AT BEDTIME 360 Tablet 3 2 Active traZODone HCl 300 MG Oral Tablet (Desyrel)Indication s:Recurrent major depressive disorder, in partial remission (HCC) TAKE ONE TABLET BY MOUTH AT BEDTIME 90 Tablet 2 2 04/18/20 23 Active Pantoprazole Sodium 40 MG Oral Tablet Delayed Release (Protonix)Indicatio ns:GERD (gastroesophageal reflux disease) TAKE ONE TABLET BY MOUTH EVERY DAY THIRTY MINUTES BEFORE THE FIRST MEAL OF THE DAY. DO NOT CRUSH, SPLIT OR CHEW THE TABLET. 90 Tablet 1 2 Active Levothyroxine Sodium 150 MCG Oral Tablet (Levoxyl)Indication s:Acquired hypothyroidism TAKE 1 TABLET BY MOUTH DAILY AT LEAST 30 MINUTES PRIOR TO FIRST MEAL OF THE DAY OR OTHER MEDICATIONS Strength: 150 mcg 90 Tablet 3 2 Active HYDROcodone-Acetami nophen 5-325 MG Oral Tablet Take 1 Tablet by mouth every 6 hours as needed for Pain, Moderate. 30 Tablet 0 2 Active Ventolin HFA 108 (90 Base) MCG/ACT Inhalation Aerosol SolutionIndications :Mild persistent asthma without complication Inhale 2 Puffs by mouth every 4 hours as needed for Cough, Shortness of Breath or Wheezing. 18 g 5 3 Active Lidocaine 5 % External Patch (Lidoderm) Place 1 Patch topically on the skin daily. 30 Patch 0 3 Active busPIRone HCl 10 MG Oral Tablet (Buspar)Indications :NOMI (generalized anxiety disorder) Take 1 Tablet by mouth in the morning and 1 Tablet before bedtime. 180 Tablet 2 3 Active busPIRone HCl 5 MG Oral Tablet (Buspar) TAKE BY MOUTH 1 TABLET IN THE MORNING AND 1 TABLET IN THE EVENING. 180 Tablet 1 2 03/31/20 23 Discontinued documented as of this encounter (statuses as of 03/31/2023) Active Problems Problem Noted Date COPD, group [...] as of this encounter (statuses as of 03/31/2023) Resolved Problems Problem Noted Date Resolved Date [...] in 2003. Intolerant of Meds. Microadenoma resolved [id number] MRI. Prolactin now 28 off all meds Sciatica 11/17/2008 04/14/2017 Elevated sedimentation rate 10/22/2008 04/0 06/2011 PITUITARY TUMOR - BENIGN 10/22/2008 017 Overview: First detected by MRI at [facility] in 2000. Variable sizes reported from 2 to 6 mm over the years. Then in January 2011 MRI at [facility] [place], no nodule seen. Hand joint pain 10/22/2008 02/11/2011 Asthma, allergic 04/14/2017 documented as of this encounter (statuses as of 03/31/2023) Immunizations Name Administration Dates Next Due Seasonal [...] Sign Reading Time Taken Comments Blood Pressure 130/66 03/31/2023 2:39 PM EDT Pulse 88 03/31/2023 2:39 PM EDT Temperature 36.1 C (96.9 F) 03/31/2023 2:39 PM ED T Respiratory Rate 18 03/31/2023 2:39 PM EDT Oxygen Saturation 94% 03/31/2023 2:39 PM EDT Inhaled Oxygen Concentration - - Weight 112.8 kg (248 lb 9.6 oz) 03/31/2023 2:39 PM EDT Height 162.6 cm (5' 4.02") 03/31/2023 2:39 PM ED T Body Mass Index 42.65 03/31/2023 2:39 PM EDT documented in this encounter Functional [...] this encounter Patient Instructions * Patient Instructions* Shanita Felix PA-C - 03/31/2023 5:13 PM EDT BMI (Body Mass Index) is the number obtained by dividing a person's weight in kilograms by his or her height in meters squared. BMI is used in determining obesity. BMI is not used to determine a person's actual percentage of body fat, but it is a good tool to telephone information clerk weight in terms of what is healthy and unhealthy. It is used to identify adults at increased risk for developing weight related medical problems. Estimated body mass index is 42.65 kg/m as calculated from the following: Height as of this encounter: 1.626 m (5' 4.02"). Weight as of this encounter: 112.8 kg (248 lb 9.6 oz). Severe Obesity - BMI 40 kg/m2 and above - Severely obese individuals are at a very high risk for developing: * Heart disease * Stroke * Diabetes * High Blood Pressure * High Cholesterol * GERD (acid reflux) * Sleep Apnea * Osteoarthritis * Fatty Liver Disease * Certain Types of Cancers * Gout * Gall Bladder Disease - Weight loss has been shown to decrease weight related medical problems. - A BMI of 40 kg/m2 or higher decreases lifespan by 10 yrs, compared to those with a normal BMI. - A 12-week weight management text message program is also available. Go to [employer] and seethe message under '[employer] News' for more information and enrollment. Patient is Instructed to: Diet: * Limit total fat intake to no more than 40 grams per day (low fat diet). * Increase fruits and vegetables to 5 servings per day, combined. * Limited starches (breads, pasta, rice, potatoes, corn, cereals) to 4 servings per day. Avoid Calorie Containing Drinks: * No fruit juices, regular sodas or sweetened drinks. * Water is preferred - 64 ounces per day unless advised of a fluid restriction. * Diet sodas and drinks permitted. Keep Honest, Accurate Food logs: * www.[employer] * www.[employer] * If you bite it - write it! Weigh Yourself Weekly: * Morning is best. * Try to do this outside your home. * Have a friend/spouse remind you to weigh yourself, accountability to others helps. Perform 30 minutes of physical activity daily: * Can do all at once or 5 minutes 6 times per day * 8, 000-10,000 steps per day using a pedometer * Make it fun! documented in this encounter Progress Notes * Shanita Felix PA-C - 03/31/2023 2:55 PM EDT Subjective: Dona Vee is a 52 year old female. Nursing Notes: Emily Gardner, MED ASSIST 03/31/23 1441 Signed Chief Complaint Patient presents with Follow Up 4 mo Dona Vee is a 52 year old female who presents to clinic today for f/u appt. Pt states she is waking up feeling un rested due to SOB. Pt would like to consider a CPAP again. Patient has been verbally educated on the need or importance of Immunizations: shingles and prevnar HPI: Patient presents for routine follow up. States she is struggling with her sleep and feeling rested. Known TERRI, but struggled with masks in the mask. Interested in trying again. Anxiety/Depression: Stable. Taking Wellbutrin and trazodone as prescribed. Denies side effects. Denies suicidal thoughts/plans/actions. Hypothyroidism: Stable. Taking levothyroxine as prescribed. Denies side effects. Admits to chronic fatigue. Denies palpitations, or changes in hair, nails, or skin. TSH Results: Lab Results Component Value Date/Time TSH - [facility] 2.72 03/04/2023 11:06 AM TSH - [facility] 1.09 03/18/2022 09:49 AM TSH - [facility] 0.61 04/02/2021 01:29 PM TSH - [facility] 0.84 04/29/2020 07:57 AM TSH - [facility] 2.12 05/18/2019 09:39 AM TSH - [facility] 3.43 04/23/2019 10:04 AM Hyperlipidemia: Mostly well controlled with diet. Denies chest pain, SOB, palpitations, edema, or syncope. Lipid Panel Results: Results for orders placed or performed in visit on 03/04/23 LIPID PANEL WITH DIRECT LDL IF TG IS HIGH Result Value Ref Range Triglycerides 135 <=174 mg/dL Cholesterol 196 <200 mg/dL HDL Cholesterol 42 (L) >49 mg/dL Non-HDL Cholesterol 154 <=159 mg/dL LDL Cholesterol 127 <=129 mg/dL GERD - Well controlled. Taking Protonix as prescribed. Denies side effects. Admits to difficulty swallowing. Denies cough, abdominal pain, or heartburn. Asthma - Stable. No requiring daily medication. Aggravated by allergies. Admits to SOB. Denies cough, increased sputum production, or wheezing. Migraines - Well controlled. Rare use of Excedrin or Tylenol, gets moderate improvement or will sleep and it is resolved till morning. Denies increase in frequency/severity. Fibromyalgia/OA - Good and bad days. Taking Gabapentin which makes pain tolerable. Hx of Pituitary Tumor. Seeing Dr. Mullins as needed - if prolactin is 3 times the upper limit normal or galactorrhea. Gets checked annually. Last in 03/04/23 at 16.1. PMH: Patient Active Problem List Diagnosis Code Hypothyroidism E03.9 GERD (gastroesophageal reflux disease) K21.9 NOMI (generalized anxiety disorder) F41.1 Fibromyalgia M79.7 Migraine without aura and without status migrainosus, not intractable G43.009 Hypokalemia E87.6 Asthma, mild persistent J45.30 Hyperlipidemia with target LDL less than 130 E78.5 History of benign pituitary tumor Z86.018 Morbid obesity due to excess calories ([facility]) E66.01 Generalized osteoarthritis of multiple sites M15.9 Allergy to NSAIDs Z88.6 Fatty liver K76.0 Hyperprolactinemia ([facility]) E22.1 HTN, goal below 140/90 I10 TERRI (obstructive sleep apnea) G47.33 Major depressive disorder, recurrent, unspecified ([facility]) F33.9 Emphysema lung ([facility]) J43.9 Class 3 severe obesity due to excess calories with serious comorbidity and body mass index (BMI) of 45.0 to 49.9 in adult ([facility]) E66.01, Z68.42 COPD, group B, by GOLD 2017 classification ([facility]) J44.9 Current Outpatient Medications Medication Sig Dispense Refill GLUCOSAMINE CHONDROITIN COMPLX PO TABS Take 1 Tablet by mouth in the morning. DOCUSATE SODIUM 100 MG PO CAPS Take 1 Capsule by mouth in the morning. MULTI-VITAMIN PO TABS Take 1 Tablet by mouth in the morning. STANDARD TENS MALACHI apply daily as needed to back (Patient not taking: No sig reported) 1 Device0 cetirizine (ZYRTEC) 10 MG Tablet Take 1 Tablet by mouth in the morning. hydroCHLOROthiazide 50 MG Oral Tablet (Hydrodiuril) TAKE ONE TABLET BY MOUTH EVERY DAY 90 Tablet 3 Potassium Chloride Jocy ER 20 MEQ Oral Tablet Extended Release TAKE ONE TABLET BY MOUTH EVERY DAY 90 Tablet 3 Gabapentin 600 MG Oral Tablet (Neurontin) TAKE TWO TABLETS BY MOUTH EVERY MORNING AND TAKE TWO TABLETS BY MOUTH AT BEDTIME 360 Tablet 3 busPIRone HCl 5 MG Oral Tablet (Buspar) TAKE BY MOUTH 1 TABLET IN THE MORNING AND 1 TABLET IN THE EVENING. 180 Tablet 1 traZODone HCl 300 MG Oral Tablet (Desyrel) TAKE ONE TABLET BY MOUTH AT BEDTIME 90 Tablet 2 Pantoprazole Sodium 40 MG Oral Tablet Delayed Release (Protonix) TAKE ONE TABLET BY MOUTH EVERYDAY THIRTY MINUTES BEFORE THE FIRST MEAL OF THE DAY. DO NOT CRUSH, SPLIT OR CHEW THE TABLET. 90 Tablet 1 Levothyroxine Sodium 150 MCG Oral Tablet (Levoxyl) TAKE 1 TABLET BY MOUTH DAILY AT LEAST 30 MINUTES PRIOR TO FIRST MEAL OF THE DAY OR OTHER MEDICATIONS Strength: 150 mcg 90 Tablet 3 HYDROcodone-Acetaminophen 5-325 MG Oral Tablet Take 1 Tablet by mouth every 6 hours as needed for Pain, Moderate. 30 Tablet 0 Ventolin HFA 108 (90 Base) MCG/ACT Inhalation Aerosol Solution Inhale 2 Puffs by mouth every 4 hours as needed for Cough, Shortness of Breath or Wheezing. 18 g 5 Lidocaine 5 % External Patch (Lidoderm) Place 1 Patch topically on the skin daily. 30 Patch 0 No current facility-administered medications for this visit. Past Medical History: Diagnosis Date Adjustment disorder with anxiety Anxiety 05/06/2014 Asthma, mild persistent 02/22/2016 Benign neoplasm of pituitary gland (HCC) 2003 2 mm to 6 mm in size [id number]. Not seen 2010 Cervical dysplasia Cervical high [...] performed by Kay Dorantes DO at ENDOSCOPY [facility] COLONOSCOPY, DIAGNOSTIC (RECTUM) N/A 05/31/2022 hemorrhoids/two medium sized lipomas ascending colon and cecum/multiple polyps/biopsies show serrated adenomatous polyps/recall 3 years/COLONOSCOPY FLEXIBLE PROXIMAL DIAGNOSTIC performed by Kay Dorantes DO at OR [facility] COLPOSCOPY OF CERVIX W/BIOPSY 01/2017 negative COLPSCPY CERVIX W/LOOP ELECT DILATION AND CURETTAGE (D&C) EGD, FLEXIBLE, DIAGNOSTIC 01/29/2019 normal bx / [facility] EGD, FLEXIBLE, DIAGNOSTIC N/A 05/19/2020 biopsies normal/ESOPHAGOGASTRODUODENOSCOPY (EGD), FLEXIBLE, TRANSORAL, DIAGNOSTIC performed by MD Melanie at [facility] EGD, FLEXIBLE, DIAGNOSTIC N/A 12/06/2022 normal/ESOPHAGOGASTRODUODENOSCOPY (EGD), FLEXIBLE, TRANSORAL, DIAGNOSTIC performed by Krzysztof Chand MD at ENDOSCOPY [facility] INCISION & DRAINAGE 08/2018 vulvar abscess INFORMATION 10/2003 LASIK OU INFORMATION right foot bunion removal INFORMATION 12/2019 left knee artroscopy, partial meniscus tear INJECT DX/THER SUBSTANCE INTERLAMINAR LUMBAR/SACRAL W IMAGE GUIDE N/A 04/22/2022 INJECTION SPINE LUMBAR OR SACRAL performed by Trista Keane MD at [facility] LAPAROSCOPIC GALLBLADDER SURGERY EDU 2001 PARTIAL REMOVAL,5TH METATARSAL HEAD Right 10/26/2017 OSTECTOMY PARTIAL EXCISION 5TH METATARSAL HEAD BUNIONETTE performed by Jessy Dudley DPM at [facility] REMOVAL OF HEEL SPUR Right 2013; plantar fasciectomy Review of patient's allergies indicates: Allergen Reactions Advair Diskus [Fluticasone-Salmeterol] Increased shortness of breathe. Tolerates albuterol. Ibuprofen eyes swell shut Naproxen eyes swells shut Prednisone Rash. Tolerates injectable steroid. Salmeterol Unknown Vanceril [Beclomethasone Dipropionate] Increased shortness of breathe Zithromax [Azithromycin Dihydrate] Feels like hair is standing up on off head Family History Problem Relation Age of Onset Hypertension Mother Diabetes Mother Emphysema Mother Lung cancer Grandfather (Maternal) Heart disease Grandfather (Paternal) Cancer Uncle (Unspecified) bladder Diabetes Other maternal great grandmother Other (pancreatic cancer) Other maternal great grandmother Breast Cancer No significant family history Uterine cancer No significant family history Ovarian cancer No significant family history Colon cancer No significant family history Social History Tobacco Use Smoking status: Former Smoker Years: 35.00 Types: Cigarettes, Vaporizer Last attempt to quit: 06/06/2016 Years since quittin.0 Smokeless tobacco: Never Used Tobacco comment: vapes Substance Use Topics Alcohol use: No Alcohol/week: 0.0 oz Comment: rare Review of Systems: All reviewed and negative unless mentioned in HPI. Objective: BP 130/66 | Pulse 88 | Temp 36.1 C (96.9 F) | Resp 18 | Ht 1.626 m (5' 4.02") | Wt 112.8 kg (248 lb 9.6 oz) | SpO2 94% | BMI 42.65 kg/m | BSA 2.26 m Physical Exam: General: alert, no distress, obese Neck: supple, no adenopathy, no bruits, thyroid normal size, non-tender, without nodularity Heart: regular rate & rhythm, no murmurs and no gallops Lungs: clear to auscultation Pulses: radial=2/4, posterior tibial=2/4 Abdomen: abdomen soft, non-tender, obese, normal bowel sounds Extremities: no edema, no clubbing, no cyanosis Gait: normal Neuro Exam: no focal motor/sensory deficits Skin: skin color, texture, turgor are normal, no rashes or significant lesions ASSESSMENT/PLAN: Moderate episode of recurrent major depressive disorder (HCC) (Primary) TERRI (obstructive sleep apnea) - SLEEP MEDICINE REFERRAL OP Mild persistent asthma without complication Migraine without aura and without status migrainosus, not intractable Acquired hypothyroidism Hyperprolactinemia (HCC) Hyperlipidemia with target LDL less than 130 HTN, goal below 140/90 Gastroesophageal reflux disease without esophagitis Generalized osteoarthritis of multiple sites NOMI (generalized anxiety disorder) - busPIRone HCl 10 MG Oral Tablet (Buspar); Take 1 Tablet by mouth in the morning and 1 Tablet before bedtime. Fibromyalgia Class 3 severe obesity due to excess calories with serious comorbidity and body mass index (BMI) of40.0 to 44.9 in adult (HCC) Pulmonary emphysema, unspecified emphysema type (HCC) Follow Up: Return in about 6 months (around 10/01/2023). Shanita Felix PA-C Patient counseling on weight management given. documented in this encounter Nursing Notes * Emily Gardner MED ASSIST - 03/31/2023 2:38 PM EDT Chief Complaint Patient presents with Follow Up 4 mo Dona Vee is a 52 year old female who presents to clinic today for f/u appt. Pt states she is waking up feeling un rested due to SOB. Pt would like to consider a CPAP again. Patient has been verbally educated on the need or importance of Immunizations: shingles and prevnar documented in this encounter Plan of Treatment Upcoming Encounters Date Type Specialty Care Team Description 06/02/2023 Office Visit Sleep Disorders Ilya Quinonez PA-C [address] [place] [id number] 06/16/2023 Appointment Radiology 07/21/2023 Office Visit Gynecology Obstetrics Mari Amezcua PA-C [address] [place] [phone] 10/06/2023 Office Visit Family Medicine Shanita Felix PA-C [address] [place] [id number] Scheduled Procedures Name Priority Associated Diagnoses Date/Ti me COLONOSCOPY FLEXIBLE PROXIMA L DIAGNOSTIC Recall History of colonic polyps Scheduled Referrals Name Type Priority Associated Diagnoses Orde r Schedule SLEEP MEDICINE REFERRAL OP Referral Within 30 days (routine) TERRI (obstructive sleep apnea) Ordered: 03/31/2023 Health Maintenance Due Date Last Done Comments COVID-19 Vaccine (#1) 1969 Pneumococcal Vaccine: Pediatrics (0 to 5 Years) and At-Risk Patients (6 to 64 Years) (1 - PCV) 1975 Alpha-1 Antitrypsin 1987 DISCUSS TOBACCO CESSATION (REFER TO SMARTSET #8361) 08/26/2016 08/26/2015 (Refused) LUNG CANCER SCREENING - USE SMARTSET 24386 2019 Zoster Vaccines (1 of 2) 2019 [...] as of this encounter Visit Diagnoses Diagnosis Moderate episode of recurrent major depressive disorder (HCC)- Primary TERRI (obstructive sleep apnea) Obstructive sleep apnea (adult) (pediatric) Mild persistent asthma without complication Unspecified asthma Migraine without aura and without status migrainosus, not intractable Migraine without aura, without mention of intractable migraine without mention of status migrainosus Acquired hypothyroidism Unspecified hypothyroidism Hyperprolactinemia (HCC) Other and unspecified anterior pituitary hyperfunction Hyperlipidemia with target LDL less than 130 Other and unspecified hyperlipidemia HTN, goal below 140/90 Unspecified essential hypertension Gastroesophageal reflux disease without esophagitis Esophageal reflux Generalized osteoarthritis of multiple sites Generalized osteoarthrosis, involving multiple sites NOMI (generalized anxiety disorder) Generalized anxiety disorder Fibromyalgia Mylagia and myositis, unspecified Class 3 severe obesity due to excess calories with serious comorbidity and body mass index (BMI) of 40.0 to 44.9 in adult (HCC) Pulmonary emphysema, unspecified emphysema type (HCC) documented in this encounter Advance Directives Latest [...] the patient have Health Care Power of Paper Machine Supervisor? No Care Teams Commercial Service Technician Relationship Specialty Start Date End Date Shanita Felix PA-C [address] [facility] [place] [id number] PCP - General Physician Clinical Informatics Strategist 11/14/14 documented as of this encounter
[2023-09-25] MEDS ORDERED: ACETAMINOPHEN 500 MG TAB PO SCH (06:00)
[2023-09-25] MEDS ORDERED: GABAPENTIN 900 MG DOSE PO SCH (06:00)
[2023-09-25] MEDS ORDERED: FAMOTIDINE 20 MG TAB PO SCH (06:00)
[2023-09-25] MEDS ORDERED: LR 500ML BOLUS, THEN 15ML/HR IV SCH (06:00)
[2023-09-25] MEDS ORDERED: TRANEXAMIC ACID 1,000 MG **IV Pre-op IV SCH (06:00)
[2023-09-25] MEDS ORDERED: ROPIVACAINE 0.5% HCL/PF 150 MG, BUPIVACAINE 0.75% MPF 20 ML, EPINEPHrine 30MG/30ML (OR ... INFIL SCH (06:00)
[2023-09-25] MEDS ORDERED: ceFAZolin 2000MG 2,000 MG/15 ML SYR IV SCH (06:00)
[2023-09-25] MEDS ORDERED: TRANEXAMIC ACID 1,000 MG **IV Intra-op IV SCH (06:00)
[2023-09-25] MEDS ORDERED: LR 60ML/HR IV SCH (06:00)
[2023-09-25] MEDS ORDERED: ATROPINE SULFATE 0.1 MG/ML 10ML SYR IV PRN (06:34)
[2023-09-25] MEDS ORDERED: ePHEDrine sulfate 50 MG/ML AMP IV PRN (06:34)
[2023-09-25] MEDS ORDERED: ONDANSETRON INJ 2 MG/ML 2 ML VIAL IV PRN ×2 (06:34→11:07)
[2023-09-25] MEDS ORDERED: fentaNYL citrate PF 100 MCG/2 ML VIAL IV PRN (06:34)
[2023-09-25] MEDS ORDERED: BUPIVACAINE 0.25% PF 30 ML VIAL ONE (06:35)
[2023-09-25] MEDS ORDERED: BUPIVACAINE 0.5 % 5 MG/1 ML PF 10ML VIAL ONE (06:35)
[2023-09-25] MEDS ORDERED: MIDAZOLAM HCL 1 MG/ML 2ML VIAL ONE (06:36)
[2023-09-25] MEDS ORDERED: fentaNYL citrate PF 100 MCG/2 ML VIAL ONE (06:36)
--- NOTE | 2023-09-25 07:11 | History & Physical Bridge Note ---
Date of Service September 25, 2023 History & Physical Bridge Note I have examined the patient, reviewed the History & Physical and in the interval since the performance of the History & Physical I have noted the following changes of clinical significance: no changes noted
[2023-09-25] MEDS ORDERED: ePHEDrine sulfate 50 MG/5 ML SYR ONE (07:53)
[2023-09-25] MEDS ORDERED: PHENYLEPHRINE HCL 10 MG/ML VIAL ONE (07:53)
[2023-09-25] MEDS ORDERED: PHENYLEPHRINE 100MCG/ML 10ML SYR IV ONE (07:53)
[2023-09-25] MEDS ORDERED: LIDOCAINE 2% 2 ML VIAL/AMP(20MG/ML) INFIL ONE (07:53)
[2023-09-25] MEDS ORDERED: PROPOFOL IV EMULSION 10 MG/ML 20 ML VIAL IV ONE ×3 (07:53→09:39)
--- NOTE | 2023-09-25 09:34 | Operative Report ---
Post Operative Report Pre & Post Diagnosis Operation Date: 09/25/23 07:15 Pre-Op Diagnosis: Left Knee Osteoarthritis, Obesity BMI 44 Post-Op Diagnosis: Left Knee Osteoarthritis, obesity BMI 44 I identified the patient and participated in the time-out.: Yes Procedure Operation Date: 09/25/23 07:15 Actual Procedures p Left Total Knee Arthroplasty(Left), lateral release, kaleb and Acticoat superficial wound VAC, increased difficulty BMI 44 - Favian Guajardo MD Surgeon Favian Guajardo MD Wet Process Assistant Head Miller Giles BHAT Estimated Blood Loss 5 Findings Consistent with Post-Op Diagnosis Specimens bone cuts Drains 2 Hemovac Anesthesia Type MAC Spinal Regional Complications none Disposition Disposition: Recovery Room Indications 53-year-old female with chronic bilateral knee pain. She had extensive conservative management with multiple injections including steroids viscosupplements medical treatment. Patient's had weight loss. Patient had bracing therapy and radiographs demonstrate that she has [id number] patellofemoral joint with some patellofemoral malalignment and moderately advanced medial compartment OA. Patient also has had previous knee arthroscopy. Description of Procedure The patient was taken to the operating room and anesthetized under Spinal MAC regional block anesthesia. Patient was placed supine on the the operating table. A pneumatic tourniquet was placed about the Obese left upper thigh. The knee exam demonstrated full range of motion including some knee hyperextension and lateral tracking patella with patellofemoral crepitation and moderately large effusion with old scars from arthroscopic procedure. The involved leg was elevated exsanguinated with Esmarch bandage and the pneumatic tourniquet was raised to 350 millimeters mercury. A longitudinal incision was made across the anterior knee. Skin flaps were elevated. An incision was made into the medial retinaculum and extended up into the mid third of the quadriceps tendon and extended down to the tibial tubercle. Intra-articular findings demonstrated tricompartmental osteoarthritis [id number] in the patellofemoral joint with bone loss in the lateral facet of the patella with patellar osteophytes. Grade 4 lateral femoral condyle changes on the patellofemoral joint and grade 3 medial compartment osteoarthritis grade 2 lateral compartment osteoarthritis tibiofemoral joint. The knee was exposed by excising cruciate ligaments and menisci. The infrapatellar fat pad was resected. The fat pad over the anterior femur at the upper aspect of the articular surface was resected for placement of the component in that area. A subperiosteal peel lateral release was performed around the patella. The [employer] journey 2.0 total knee arthroplasty system was utilized for the procedure. The drill hole was made into the femoral canal intramedullary guide bobbi placed and distal femoral cutting guide was adjusted to make a standard distal femoral cut.. The distal femoral cut was made With the oscillating saw. sizing guide was placed and the femur was sized for a 4 femoral component and the drill holes were made in 3 degrees of external rotation to match the epicondylar axis. The size 4, 5 in 1 cutting block was placed. The anterior posterior and chamfer cuts were made. bone was relatively soft in quality. The knee was extended and a free hand cut technique was performed to the patella. The patella width was measured and the width was reproduced using a 32 symmetrical patella component. 3 drill holes are made for the patella component pegs. patella bone was extremely sclerotic and hard. The tibia was then subluxed. The External tibial cutting guide was adjusted for varus valgus alignment and slope and was pinned in position and the proximal tibial cut was made with the oscillating saw. Flexion and extension gaps were balanced. minor pie crusting of the MCL was required with no other medial releases. The size 3 tibial trial was maximally externally rotated in line with the tibial tubercle and pinned in position. The punch for the stem was used. The femoral trial was inserted and centered the notch cutting devices were used and the collet was placed. Tibial trials were used for the insert. The size 12 trial gave balanced ligaments through full range of motion and reproduced some of her previous hyperextension of the knee.. Patella tracking was assessed with range of motion. The patella tracked With some lateral tilt so I did a lateral release preserving the synovium and this corrected the patella tracking to central. The trials were removed. The Orthomix anesthetic cocktail was injected per protocol. The cut bone surfaces and soft tissue were copiously irrigated with pulsatile lavage saline solution. The final components were cemented with Refobacin cement. The final components were [employer]hew journey 2.0 size 4 left femoral component, size 3 left tibial component, the 12 posterior stabilized left tibial polyethylene insert, the 32 mm symmetrical polyethylene patella After the cement cured, the Betadine soak was used for 3 minutes. The knee was then copiously irrigated with pulsatile lavage saline solution. 2 drains were brought out laterally connected to Hemovac. The quadriceps tendon and medial retinaculum were closed with interrupted [id number] #1 Vicryl sutures. The knee was taken through full range of motion and repair was secure. Knee range of motion was 0 through 130 degrees. the subcutaneous tissues were closed with 2-0 Vicryl sutures. The skin was closed with [place]. A Kaleb and Acticoat superficial wound VAC was applied. The tourniquet was let down and the patient had good capillary refill to the extremity. The patient tolerated the procedure well. My physician topographical field assistant Albert BHAT participated as first grade teacher and was integral part in all aspects of the procedure including prepping, draping, leg positioning, soft tissue retraction, instrument management and assisted in the closure superficial wound VAC application and will participate in postoperative care the patient. was increased level difficulty of the case due to her morbid obesity with exposure and this added 25 minutes level of the procedure time. I attest to the content of the Intraoperative Record and any orders documented therein. Any exceptions are noted below.
[2023-09-25] MEDS ORDERED: ONDANSETRON INJ 2 MG/ML 2 ML VIAL ONE (09:41)
--- NOTE | 2023-09-25 10:30 | XRay Report ---
TWO VIEWS LEFT KNEE CLINICAL HISTORY: Postoperative examination. FINDINGS: AP and crosstable lateral portable views of the left knee are obtained. A left knee arthrop lasty is in near anatomic alignment. There has been undersurface remodeling of the patella. No acute fracture is seen. There are expected postoperative changes around the knee including skin clips, a mendoza rgical drain, soft tissue edema, and subcutaneous gas. IMPRESSION: Expected postoperative changes status post left knee arthroplasty. No acute fracture is s een. ACT 112: Negative or not required by law. Electronically signed by: Antoine Henriquez M.D. 09/25/2023 10:29 AM
[2023-09-25] MEDS ORDERED: METOCLOPRAMIDE HCL INJ 5 MG/ML 2 ML VIAL IV PRN (11:07)
[2023-09-25] MEDS ORDERED: MAGNESIUM HYDROXIDE SUSP 30 ML UDC PO PRN (11:07)
[2023-09-25] MEDS ORDERED: SODIUM CHLORIDE 0.9% 1,000 ML IV SCH (11:07)
[2023-09-25] MEDS ORDERED: bisacodyL 10 MG SUPP PR PRN (11:07)
[2023-09-25] MEDS ORDERED: NALOXONE HCL 0.4 MG/1 ML VIAL/CARP IV PRN (11:07)
[2023-09-25] MEDS ORDERED: ALBUTEROL HFA 8 GM INHALER INH PRN (11:22)
[2023-09-25] MEDS: HYDROmorphone INJ 0.5 MG/0.5 ML SYR IV PRN ×4 (11:25→21:59)
--- NOTE | 2023-09-25 11:28 | Anesthesiology Progress Note ---
Date of Service September 25, 2023 Anesthesia Post Procedure Vital Signs Vital Signs: Temp Pulse Pulse Resp BP Pulse Ox O2 Del Method 09/25/23 11:05 36.4 C L 87 18 121/74 95 Nasal Cannula 09/25/23 10:45 90 20 123/84 94 Nasal Cannula 09/25/23 10:30 36.4 C L 79 15 112/72 93 Nasal Cannula 09/25/23 10:20 76 14 117/71 93 Nasal Cannula 09/25/23 10:10 93 H 18 117/70 93 Room Air 09/25/23 10:02 36.2 C L 86 19 142/68 H 97 Oxymask 09/25/23 05:47 36.6 C 83 20 136/84 93 Room Air O2 Flow Rate 09/25/23 11:05 2 09/25/23 10:45 4 09/25/23 10:30 4 09/25/23 10:20 4 09/25/23 10:10 09/25/23 10:02 6 09/25/23 05:47 Pain Intensity Left Knee: Pain Intensity: 8 Transfer of Care Handoff Completed per policy Notes Mental Status: alert / awake / arousable Patient Amnestic to Procedure: Yes Nausea / Vomiting: adequately controlled Pain: adequately controlled Airway Patency, RR, SpO2: stable & adequate BP & HR: stable & adequate Hydration State: stable & adequate Neuraxial Anesthesia: was administered and sensory block is resolving Anesthetic Complications: no major complications apparent and Pt Satisfied with anesthetic care
--- NOTE | 2023-09-25 11:49 | Consultation ---
Date of Consultation September 25, 2023 Assessment & Plan (1) Primary osteoarthritis of left knee: (2) Morbid obesity: (3) GERD (gastroesophageal reflux disease): (4) Sleep apnea: (5) Hypothyroidism: Plan Ms. Vee is a 53-year-old female that presented to the [facility] today for an elective left knee arthroplasty under the care of Dr. Guajardo. Patient has a PMH that includes: morbid obesity, TERRI (no CPAP), fibromyalgia, hypothyroidism, migraine, and COPD who presents with ongoing left knee pain that has failed conservative management. Conservatively she has had steroid injections and viscosupplementation. Patient does use tobacco 1 pack/day reported by patient. Patient does not wish to have nicotine patch at this time. When I walked in the room, patient was laying on her stomach and blood was surrounding her bed. Patient instructed to return to her back; her hemovac was disconnected. Patient complaining of pain; patient has order for Dilaudid plus oxycodone; received 2 doses of Dilaudid with some relief. Patient has ambulated already postoperatively. Tolerating clear liquid diet. Primary OA of the left knee: POD#0 s/p L knee arthroplasty with Dr. Guajardo. Per ortho for pain control, wound care, anticoagulation and activities. EBL 5mL; hemovac x 1 with elvis red blood Monitor H&H,baseline Hgb 13.2 on 03/04/2023; monitor in a.m. continue incentive spirometry PT/OT when appropriate TERRI: chronic stable no CPAP at home GERD: chronic stable diet controlled Hypothyroidism: Chronic stable Takes Levothyroxine;continue Depression: Chronic stable takes Buspar;continue Disposition: PCP: Dr. Felix Code Status: Full Code VTE Prophylaxis: per admitting team I spent a total of 60 minutes coordinating, documenting, and providing care for this patient excluding time spent in the performance of separately billed services. All of the aforementioned completed while collaborating with the assigned attending physician for a full treatment plan. Please see their addendum for further details. Supervising Physician Co-Signing Physician Notes I have seen and examined the patient and have discussed the case with the provider above. I agree with the assessment and plan as stated. DO Rick History of Present Illness Requesting Physician: Dr. Guajardo Reason for Consultation: Postoperative medical consultation Attending Physician: Favian Guajardo MD History of Present Illness Ms. Vee is a 53-year-old female that presented to the [facility] today for an elective left knee arthroplasty under the care of Dr. Guajardo. Patient has a PMH that includes: morbid obesity, TERRI (no CPAP), fibromyalgia, hypothyroidism, migraine, and COPD who presents with ongoing left knee pain that has failed conservative management. Conservatively she has had steroid injections and viscosupplementation. Patient does use tobacco 1 pack/day reported by patient. Patient does not wish to have nicotine patch at this time. When I walked in the room, patient was laying on her stomach and blood was surrounding her bed. Patient instructed to return to her back; her hemovac was disconnected. Patient complaining of pain; patient has order for Dilaudid plus oxycodone; received 2 doses of Dilaudid with some relief. Patient has ambulated already postoperatively. Tolerating clear liquid diet. [facility] medical management. Thank you kindly for this consultation. We are available 29/05 via [place] text for any questions or concerns. Allergies Allergy/AdvReac Type Severity Reaction Status Date / Time azithromycin [From Zithromax] Allergy Intermediate Feeling of Verified 09/25/23 05:40 "hair standing up off head" beclomethasone Allergy Intermediate Increased Verified 09/25/23 05:40 [From Vanceril] SOB fluticasone Allergy Intermediate "Jittery" Verified 09/25/23 05:40 [From Advair Diskus] feeling ibuprofen Allergy Intermediate Eyes swell Verified 09/25/23 05:40 shut naproxen Allergy Intermediate Eyes swell Verified 09/25/23 05:40 shut prednisone Allergy Intermediate Rash Verified 09/25/23 05:40 salmeterol Allergy Intermediate "Jittery" Verified 09/25/23 05:40 [From Advair Diskus] feeling Home Medications Medication Instructions Recorded Confirmed Type albuterol sulfate 90 mcg/actuation 1 inh inhalation QID PRN SHORT OF 01/22/19 09/25/23 History breath activated powder inhaler BREATH cetirizine 10 mg capsule (Zyrtec) 10 mg PO QAM 01/22/19 09/25/23 History docusate sodium 100 mg tablet 100 mg PO QAM 01/22/19 09/25/23 History gabapentin 600 mg tablet 2 tab PO BID 01/22/19 09/25/23 History glucosamine-chondroitin 250 mg-200 1 tab PO QAM 01/22/19 09/25/23 History mg tablet levothyroxine 125 mcg tablet 125 mcg PO QAM 01/22/19 09/25/23 History multivitamin 1 tab PO QAM 01/22/19 09/25/23 History pantoprazole 40 mg tablet,delayed 40 mg PO QAM 01/22/19 09/25/23 History release (Protonix) potassium chloride 20 mEq 20 meq PO QAM 01/22/19 09/25/23 History tablet,extended release trazodone 100 mg tablet 100 mg PO HS 01/22/19 09/25/23 History valacyclovir 500 mg tablet 500 mg PO UD PRN Cold Sores 01/22/19 09/25/23 History (Valtrex) buspirone 10 mg tablet 10 mg PO BID 08/11/23 09/25/23 History hydrochlorothiazide 50 mg tablet 50 mg PO DAILY 09/25/23 09/25/23 History Patient History Medical History (Updated 09/25/23 @ 11:48 by SHORTY Conway) Emphysema lung Morbid obesity Neuropathy feet/fingers History of COVID-19 08/2021 - no current issues Sleep apnea No current device Cyst B/L knee- drained in the past Fibromyalgia Blood in urine Chronic since 19 years of age Had cystoscopies in the past- no issues. No current urinary issues Trace blood on preop UA 08/18/23 Enlarged liver Hx of fatty liver per patient GERD (gastroesophageal reflux disease) Well controlled and stable Hypothyroidism Depression Anxiety Restless leg syndrome Hyperlipidemia "Borderline" Migraine Asthma Well controlled and stable Occ albuterol use Breathing at baseline Surgical History History of arthroscopy left knee History of cystoscopy Family history of reaction to anesthesia Mother- "almost " with anesthesia during hysterectomy S/P LEEP (status post loop electrosurgical excision procedure) History of dilatation and curettage History of bunionectomy RT H/O foot surgery RT PLANTAR FASCIOTOMY History of esophagogastroduodenoscopy (EGD) History of colonoscopy History of cholecystectomy History of tooth extraction S/P LASIK surgery Family History Mother Family history of diabetes mellitus Social History Smoking Status: Current every day smoker Tobacco Type: Cigarettes Cigarettes Per Day: 1 ppd > advised; Second Hand Exposure: No; Do You Dip or Chew Tobacco: No; Tobacco Cessation Education Requested by Patient: No Hx Alcohol Use: Yes Alcohol type: hard liquor Hx Substance Use: No Preferred Language: Azeri Communication Ability: Effective Sticker Hand Required: No Beliefs That Will Affect Care: None Current Living Situation: Family Current Living Situation Comment: SON Other Information That Helps Us Care for You: No Feels Safe at Home: Yes Safety Concerns: Feels Safe At This Time Assistive Devices: Glasses Review of Systems Review of Systems: Neuro: (-) Falls, trauma, slurred speech HEENT: (-) WORRELL, dizziness, dysphagia, visual or auditory changes CV: (-) CP, palpitations, swelling Resp: (-) SOB GI: (-) appetite changes, N/V/D, bowel changes : (-) urinary changes Skin: (-) rashes Psych: (-) anxiety, depression Physical Exam Physical Exam: Neuro: AAOx4, PERRLA, no aphagia, memory changes, CNII-XII grossly intact HEENT: head normocephalic, moist mucus membranes CV: S1/S2, (-) M/G/R, (-) edema, cap refill < 3 seconds Hemovac x1 posterior knee Resp: Lungs CTA in all watkins. On RA GI: Abdomen S/NT/ND, Ax4 bowel sounds, (-) CVA tenderness Musculoskeletal: 5/5 B/L UE strength, 5/5 B/L LE strength. No gait disturbance; patient has ambulated already postop Skin: (-) rashes , (-) erythema. Psych: euthymic mood Results & Data Vital Signs (Past 12 Hours) Vital Signs Temp Pulse Pulse Resp BP Pulse Ox O2 Del Method 09/25/23 11:32 36.5 C 88 18 114/75 93 Room Air 09/25/23 11:05 36.4 C L 87 18 121/74 95 Nasal Cannula 09/25/23 10:45 90 20 123/84 94 Nasal Cannula 09/25/23 10:30 36.4 C L 79 15 112/72 93 Nasal Cannula 09/25/23 10:20 76 14 117/71 93 Nasal Cannula 09/25/23 10:10 93 H 18 117/70 93 Room Air 09/25/23 10:02 36.2 C L 86 19 142/68 H 97 Oxymask 09/25/23 05:47 36.6 C 83 20 136/84 93 Room Air O2 Flow Rate 09/25/23 11:32 09/25/23 11:05 2 09/25/23 10:45 4 09/25/23 10:30 4 09/25/23 10:20 4 09/25/23 10:10 09/25/23 10:02 6 09/25/23 05:47 Diagnostic Findings Knee X-Ray 09/25/23 10:06 TWO VIEWS LEFT KNEE CLINICAL HISTORY: Postoperative examination. FINDINGS: AP and crosstable lateral portable views of the left knee are obtained. A left knee arthroplasty is in near anatomic alignment. There has been undersurface remodeling of the patella. No acute fracture is seen. There are expected postoperative changes around the knee including skin clips, a surgical drain, soft tissue edema, and subcutaneous gas. IMPRESSION: Expected postoperative changes status post left knee arthroplasty. No acute fracture is seen. ACT 112: Negative or not required by law. Electronically signed by: Antoine Henriquez M.D. 09/25/2023 10:29 AM
[2023-09-25] MEDS: oxyCODONE HCL IR 5 MG TAB (IMMEDIATE RELEASE) PO PRN ×3 (12:25→20:15)
[2023-09-25] MEDS ORDERED: HYDROmorphone INJ 1 MG/ML SYRINGE IV STA (13:33)
[2023-09-25] MEDS: ACETAMINOPHEN 500 MG TAB PO SCH ×2 (13:48→21:43)
[2023-09-25] MEDS: ceFAZolin 2000MG 2,000 MG/15 ML SYR IV SCH (17:20)
[2023-09-25] MEDS: NICOTINE 21 MG/24 HR TDSY TD SCH (17:20)
[2023-09-25] MEDS: SENNA 8.6 MG TAB PO SCH (20:15)
[2023-09-25] MEDS: GABAPENTIN 600 MG TAB PO SCH (20:15)
[2023-09-25] MEDS: traZODone HCL 100 MG TAB PO SCH (20:15)
[2023-09-25] MEDS: DOCUSATE SODIUM 100 MG CAP PO SCH (20:15)
[2023-09-25] MEDS: busPIRone 5 MG TAB PO SCH (20:15)
[2023-09-25] MEDS ORDERED: HYDROmorphone INJ 0.5 MG/0.5 ML SYR IV STA (21:50)
[2023-09-26] MEDS: ceFAZolin 2000MG 2,000 MG/15 ML SYR IV SCH (00:02)
[2023-09-26] MEDS: oxyCODONE HCL IR 5 MG TAB (IMMEDIATE RELEASE) PO PRN ×5 (00:18→22:40)
[2023-09-26] MEDS: HYDROmorphone INJ 1 MG/ML SYRINGE IV PRN ×5 (02:00→21:07)
[2023-09-26] MEDS: LEVOTHYROXINE SODIUM 125 MCG TABLET PO SCH (05:36)
[2023-09-26] MEDS: ACETAMINOPHEN 500 MG TAB PO SCH ×2 (05:36→16:46)
[2023-09-26 06:47] LABS: Hematocrit (blood only) 35.7 % (37.0-47.0); Hemoglobin 12.1 g/dl (12.0-16.0); Mean Corpuscular Hemoglobin 31.7 pg (25.0-34.0); Mean Corpuscular Hgb Conc 33.9 g/dL (32.0-36.0); Mean Corpuscular Volume 93.5 fL (80.0-100.0); Mean Platelet Volume 10.1 fL (9.4-12.4); Platelet Count 175 K/uL (130-400); RDW Coefficient of Variation 13.5 % (11.5-14.5); RDW Standard Deviation 45.9 fL (36.4-46.3); Red Blood Count 3.82 M/uL (4.20-5.40); White Blood Count 14.47 K/ul (4.8-10.8)
--- NOTE | 2023-09-26 07:14 | Orthopedic Progress Note ---
Date of Service September 26, 2023 Assessment & Plan (1) Primary osteoarthritis of left knee: Plan: Postop day #1 left total knee arthroplasty -PT/OT -Pain management as written -DVT prophylaxis: SCDs, teds, Xarelto 10 mg daily -AM labs: Hemoglobin 12.1 from 12.3 preop. Leukocytosis likely reactive due to surgical stress versus perioperative steroids. Patient is asymptomatic -Discharge planning: Plan on discharge with outpatient therapy when stable. Currently pain is well controlled. Has had 200 cc of Hemovac output overnight. Will monitor Hemovac output through today. If slows down and pain better controlled possible plan on discharge home today versus tomorrow. Admission and Anticipated Discharge Date Admission Date: September 25, 2023 Subjective Patient is postop day 1 left total knee. She is having a considerable amount of pain this morning. States that the nerve blocks did not work at all. She did have oxycodone at midnight, as well as IV Dilaudid at 2 AM. No other complaints. Denies chest pain, shortness of breath, nausea/vomiting/diarrhea, headaches or dizziness. Review of Systems Review of Systems: All systems reviewed & are unremarkable except as noted in Subjective Physical Exam Physical Exam: Left knee: Dressing is clean, dry, intact. Toes are mobile with no calf tenderness. Has good dorsiflexion. Distally neurovascular status and sensation is grossly intact. Results & Data Vital Signs (Past 12 Hours) Vital Signs Temp Pulse Resp BP Pulse Ox O2 Del Method O2 Flow Rate 09/26/23 06:57 36.9 C 118 H 18 115/74 93 Nasal Cannula 2 09/26/23 05:00 36.6 C 88 20 130/72 95 Room Air 09/26/23 01:12 36.9 C 90 18 126/75 95 Room Air 09/25/23 22:47 36.8 C 102 H 18 141/75 H 91 Room Air 09/25/23 20:54 Room Air Laboratory Results Lab Results 09/26/23 Range/Units 06:24 WBC 14.47 H (4.8-10.8) K/ul RBC 3.82 L (4.20-5.40) M/uL Hgb 12.1 (12.0-16.0) g/dl Hct 35.7 L (37.0-47.0) % MCV 93.5 (80.0-100.0) fL MCH 31.7 (25.0-34.0) pg MCHC 33.9 (32.0-36.0) g/dL RDW Std Deviation 45.9 (36.4-46.3) fL RDW Coeff of Jaime 13.5 (11.5-14.5) % Plt Count 175 (130-400) K/uL MPV 10.1 (9.4-12.4) fL
[2023-09-26 07:50] LABS: Calcium 8.2 mg/dl (8.6-10.3); Potassium 3.8 mmol/L (3.5-5.1)
[2023-09-26 07:56] LABS: BUN Creatinine Ratio 12.4 (10-20); Creatinine Clr Calc Pharmacy 76.7 ml/min; Est GFR (African American) 69.7 ml/min; Est GFR (Non-African American) 60.2 ml/min
[2023-09-26] MEDS: RIVAROXABAN 10 MG TABLET PO SCH (08:42)
[2023-09-26] MEDS: hydroCHLOROthiazide 25 MG TAB PO SCH (08:42)
[2023-09-26] MEDS: GABAPENTIN 600 MG TAB PO SCH ×2 (08:42→20:48)
[2023-09-26] MEDS: PANTOprazole 40 MG TAB PO SCH (08:42)
[2023-09-26] MEDS: CETIRIZINE HCL 10 MG TABLET PO SCH (08:42)
[2023-09-26] MEDS: DOCUSATE SODIUM 100 MG CAP PO SCH ×2 (08:42→20:48)
[2023-09-26] MEDS: POTASSIUM CHLORIDE CRTAB 20 MEQ TABCR PO SCH (08:42)
[2023-09-26] MEDS: busPIRone 5 MG TAB PO SCH ×2 (08:42→20:48)
[2023-09-26] MEDS: MULTIVITAMIN TAB PO SCH (08:42)
[2023-09-26] MEDS: NICOTINE 21 MG/24 HR TDSY TD SCH (08:43)
[2023-09-26] MEDS ORDERED: ACETAMINOPHEN W/CODEINE #3 1 TAB PO ONE (09:27)
--- NOTE | 2023-09-26 14:22 | Hospitalist Progress Note ---
Date of Service September 26, 2023 Assessment & Plan (1) Primary osteoarthritis of left knee: (2) Morbid obesity: (3) GERD (gastroesophageal reflux disease): (4) Sleep apnea: (5) Hypothyroidism: Plan Primary OA of the left knee: POD#1 s/p L knee arthroplasty with Dr. Guajardo. Per ortho for pain control, wound care, anticoagulation and activities. EBL 5mL; drain output 645mL Preop Hgb 12.3 --> 12.1, continue to monitor H&H HTN Chronic, stable Continue HCTZ TERRI: chronic, stable no CPAP at home GERD: chronic, stable Continue PPI Hypothyroidism: Chronic, stable Takes Levothyroxine;continue Depression: Chronic, stable takes Buspar and trazodone;continue DVT PROPHYLAXIS Rivaroxaban as per Ortho Patient seen in cooperation with Dr. Vegas. Thank you for this consultation. We will follow the patient with you during their hospital stay. You can reach a [facility] of the [facility] 29[facility]05 via the [facility] role in [place] Text. Admission and Anticipated Discharge Date Admission Date: September 25, 2023 Supervising Physician Co-Signing Physician Notes Pt seen and examined by myself, Holly Vegas MD on the day of service. Care was coordinated with SHORTY Melissa. Pt with significant pain on exam this morning, in tears. Per nursing had received both dilaudid ordered and ordered oxycodone. Pt stated that she was unable to move the leg which was bandaged. Given a one time dose of Tylenol #3 and Tylenol 1000mg q8h was scheduled. Pt with allergy to NSAIDs. Will defer to primary team for further evaluation and further recs for pain control. Otherwise as above. Subjective Follow-up for medical management, s/p left TKA. Patient seen and examined. Reporting increased pain this a.m. Denies numbness and tingling to the left lower extremity. No chest pain or shortness of breath. Denies abdominal pain or nausea. + flatus, no BM yet. Urinating without difficulty. Physical Exam Constitutional: WD/WN, vitals as above Respiratory: normal respiratory effort, lungs clear to auscultation Cardiovascular: Rate/Rhythm: regular rate and regular rhythm Vessels: normal peripheral pulses Extremities: no edema Gastrointestinal (Abdomen): Percussion/Palpation: abdomen soft; abdomen nontender Musculoskeletal: S/p left knee surgery, dressing CDI, drain in place draining bloody drainage, CSM checks intact LLE Skin: no rashes, warm and dry Neurologic: no focal motor deficits Psychiatric: A+Ox3, euthymic affect Results & Data Results & Data Vital Signs (Past 12 Hours) Vital Signs Temp Pulse Resp BP Pulse Ox O2 Del Method O2 Flow Rate 09/26/23 07:32 Nasal Cannula 2 09/26/23 06:57 36.9 C 118 H 18 115/74 93 Nasal Cannula 2 09/26/23 05:00 36.6 C 88 20 130/72 95 Room Air Laboratory Results Short CBC 09/26/23 Range/Units 06:24 WBC 14.47 H (4.8-10.8) K/ul Hgb 12.1 (12.0-16.0) g/dl Hct 35.7 L (37.0-47.0) % Plt Count 175 (130-400) K/uL BMP 09/26/23 06:24 Sodium 134 L Potassium 3.8 Chloride 100 Carbon Dioxide 28 BUN 13 Creatinine 1.05 Glucose 134 H Calcium 8.2 L
[2023-09-26] MEDS: traZODone HCL 100 MG TAB PO SCH (20:48)
[2023-09-26] MEDS: SENNA 8.6 MG TAB PO SCH (20:49)
[2023-09-27] MEDS: ACETAMINOPHEN 500 MG TAB PO SCH ×3 (02:05→16:16)
[2023-09-27] MEDS: HYDROmorphone INJ 1 MG/ML SYRINGE IV PRN ×2 (02:05→07:55)
[2023-09-27] MEDS: oxyCODONE HCL IR 5 MG TAB (IMMEDIATE RELEASE) PO PRN ×2 (05:13→10:07)
[2023-09-27] MEDS: LEVOTHYROXINE SODIUM 125 MCG TABLET PO SCH (05:14)
[2023-09-27 06:41] LABS: Hematocrit (blood only) 31.6 % (37.0-47.0); Hemoglobin 10.9 g/dl (12.0-16.0); Mean Corpuscular Hemoglobin 31.1 pg (25.0-34.0); Mean Corpuscular Hgb Conc 34.5 g/dL (32.0-36.0); Mean Corpuscular Volume 90.3 fL (80.0-100.0); Mean Platelet Volume 10.2 fL (9.4-12.4); Platelet Count 146 K/uL (130-400); RDW Coefficient of Variation 13.2 % (11.5-14.5); RDW Standard Deviation 43.6 fL (36.4-46.3); White Blood Count 12.24 K/ul (4.8-10.8)
[2023-09-27 07:11] LABS: BUN Creatinine Ratio 10.5 (10-20); Calcium 8.4 mg/dl (8.6-10.3); Est GFR (African American) 103.1 ml/min; Est GFR (Non-African American) 88.9 ml/min; Potassium 3.4 mmol/L (3.5-5.1)
[2023-09-27] MEDS ORDERED: POTASSIUM CHLORIDE CRTAB 20 MEQ TABCR PO ONE (07:14)
--- NOTE | 2023-09-27 07:15 | Orthopedic Progress Note ---
Date of Service September 27, 2023 Assessment & Plan (1) Primary osteoarthritis of left knee: Plan: Postop day #2 left total knee arthroplasty -PT/OT -Pain management as written -DVT prophylaxis: SCDs, teds, Xarelto 10 mg daily -AM labs: Hemoglobin 10.6 from 12.3 preop, acute blood loss anemia due to surgical loss vs dilutional. Leukocytosis likely reactive due to surgical stress versus perioperative steroids, trending down. Patient is asymptomatic -Discharge planning: Plan on discharge with outpatient therapy when stable. Currently pain is improved from yesterday. plan on dc home after PT if progresses week Admission and Anticipated Discharge Date Admission Date: September 25, 2023 Subjective Pain is mildly improved from yesterday however still having moderate pain. No other complaints. Denies chest pain, sob, dizziness, WORRELL, n/v/d. Review of Systems Review of Systems: All systems reviewed & are unremarkable except as noted in Subjective Physical Exam Physical Exam: Left knee: Dressing is clean, dry, intact. Toes are mobile with no calf tenderness. Has good dorsiflexion. Distally neurovascular status and sensation is grossly intact. Results & Data Vital Signs (Past 12 Hours) Vital Signs Temp Pulse Resp BP Pulse Ox O2 Del Method O2 Flow Rate 09/26/23 23:29 Nasal Cannula 2 09/26/23 21:12 36.4 C L 96 H 16 104/78 96 Nasal Cannula 2
[2023-09-27] MEDS: PANTOprazole 40 MG TAB PO SCH (07:55)
[2023-09-27] MEDS: busPIRone 5 MG TAB PO SCH ×2 (07:55→20:06)
[2023-09-27] MEDS: GABAPENTIN 600 MG TAB PO SCH ×2 (07:55→20:05)
[2023-09-27] MEDS: MULTIVITAMIN TAB PO SCH (07:56)
[2023-09-27] MEDS: RIVAROXABAN 10 MG TABLET PO SCH (07:56)
[2023-09-27] MEDS: CETIRIZINE HCL 10 MG TABLET PO SCH (07:56)
[2023-09-27] MEDS: hydroCHLOROthiazide 25 MG TAB PO SCH (07:56)
[2023-09-27] MEDS: NICOTINE 21 MG/24 HR TDSY TD SCH (07:58)
[2023-09-27] MEDS: DOCUSATE SODIUM 100 MG CAP PO SCH ×2 (08:01→20:05)
[2023-09-27] MEDS: POTASSIUM CHLORIDE CRTAB 20 MEQ TABCR PO SCH (08:01)
[2023-09-27] MEDS: HYDROmorphone HCL 2 MG TAB PO PRN ×2 (11:54→20:05)
--- NOTE | 2023-09-27 11:57 | Hospitalist Progress Note ---
Date of Service September 27, 2023 Assessment & Plan (1) Primary osteoarthritis of left knee: (2) Morbid obesity: (3) GERD (gastroesophageal reflux disease): (4) Sleep apnea: (5) Hypothyroidism: Plan Primary OA of the left knee: POD#2 s/p L knee arthroplasty with Dr. Guajardo. Per ortho for pain control, wound care, anticoagulation and activities. EBL 5mL; drain output 710mL Preop Hgb 12.3 --> 12.1 --> 10.9, continue to monitor H&H HTN Chronic, stable Continue HCTZ TERRI: chronic, stable no CPAP at home GERD: chronic, stable Continue PPI Hypothyroidism: Chronic, stable Takes Levothyroxine;continue Depression: Chronic, stable takes Buspar and trazodone;continue DVT PROPHYLAXIS Rivaroxaban as per Ortho Patient seen in cooperation with Dr. Mckeon. Thank you for this consultation. We will follow the patient with you during their hospital stay. You can reach a member of the [facility] Hospitalist Team 29/05 via the [facility] Hospitalist role in [place] Text. Admission and Anticipated Discharge Date Admission Date: September 25, 2023 Supervising Physician Co-Signing Physician Notes Attending addendum: The patient was seen and examined in the medical floor. She is a status post left knee replaced Complaining of more pain in the knee joint and requiring IV pain medication Not being able to ambulate and not yet ready to be discharged On examination Sitting on a chair with acute distress due to left knee pain Remains hemodynamically stable Chest-clear to auscultate bilaterally Heart-S1-S2, regular Abdomen-benign Her labs, imaging studies and medications reviewed Status post left total knee arthroplasty with ongoing pain Medically stable to be discharged Reviewed assessment and plan as outlined above by Trish Mckeon Subjective Follow-up for medical management. S/p left TKA. Patient seen and examined. Sitting up on the edge of the bed. Reports pain is mildly improved from yesterday. Denies chest pain and shortness of breath. No lightheadedness or dizziness. Physical Exam Constitutional: WD/WN, vitals as above no acute distress Respiratory: normal respiratory effort, lungs clear to auscultation Cardiovascular: Rate/Rhythm: regular rate and regular rhythm Vessels: normal peripheral pulses Extremities: no edema Gastrointestinal (Abdomen): Percussion/Palpation: abdomen soft; abdomen nontender Musculoskeletal: S/p left knee surgery, dressing CDI, + edema noted Skin: no rashes, warm and dry Neurologic: no focal motor deficits Psychiatric: A+Ox3, euthymic affect Results & Data Results & Data Vital Signs (Past 12 Hours) Vital Signs Temp Pulse Resp BP Pulse Ox O2 Del Method O2 Flow Rate 09/27/23 08:48 Nasal Cannula 2 09/27/23 07:39 94 Nasal Cannula 2 09/27/23 07:38 37.0 C 74 18 118/70 87 L Room Air Laboratory Results Short CBC 09/27/23 Range/Units 05:43 WBC 12.24 H (4.8-10.8) K/ul Hgb 10.9 L (12.0-16.0) g/dl Hct 31.6 L (37.0-47.0) % Plt Count 146 (130-400) K/uL BMP 09/27/23 05:43 Sodium 134 L Potassium 3.4 L Chloride 95 L Carbon Dioxide 34 H BUN 8 Creatinine 0.76 Glucose 112 H Calcium 8.4 L
[2023-09-27] MEDS ORDERED: traMADol HCL 50 MG TABLET PO STA (17:02)
[2023-09-27] MEDS ORDERED: HYDROmorphone INJ 1 MG/ML SYRINGE IV STA (17:13)
[2023-09-27] MEDS: SENNA 8.6 MG TAB PO SCH (20:05)
[2023-09-27] MEDS: traZODone HCL 100 MG TAB PO SCH (20:06)
[2023-09-28] MEDS: ACETAMINOPHEN 500 MG TAB PO SCH ×2 (00:01→08:27)
[2023-09-28] MEDS: HYDROmorphone HCL 2 MG TAB PO PRN ×2 (02:21→08:27)
[2023-09-28] MEDS: LEVOTHYROXINE SODIUM 125 MCG TABLET PO SCH (05:56)
[2023-09-28 07:22] LABS: Hematocrit (blood only) 33.4 % (37.0-47.0); Hemoglobin 11.3 g/dl (12.0-16.0); Mean Corpuscular Hemoglobin 30.9 pg (25.0-34.0); Mean Corpuscular Hgb Conc 33.8 g/dL (32.0-36.0); Mean Corpuscular Volume 91.3 fL (80.0-100.0); Platelet Count 158 K/uL (130-400); RDW Coefficient of Variation 13.2 % (11.5-14.5); RDW Standard Deviation 43.9 fL (36.4-46.3); Red Blood Count 3.66 M/uL (4.20-5.40); White Blood Count 9.86 K/ul (4.8-10.8)
[2023-09-28] MEDS ORDERED: POTASSIUM CHLORIDE CRTAB 20 MEQ TABCR PO STA (08:22)
[2023-09-28] MEDS: GABAPENTIN 600 MG TAB PO SCH (08:27)
[2023-09-28] MEDS: CETIRIZINE HCL 10 MG TABLET PO SCH (08:27)
[2023-09-28] MEDS: hydroCHLOROthiazide 25 MG TAB PO SCH (08:27)
[2023-09-28] MEDS: PANTOprazole 40 MG TAB PO SCH (08:27)
[2023-09-28] MEDS: POTASSIUM CHLORIDE CRTAB 20 MEQ TABCR PO SCH (08:27)
[2023-09-28] MEDS: NICOTINE 21 MG/24 HR TDSY TD SCH (08:27)
[2023-09-28] MEDS: RIVAROXABAN 10 MG TABLET PO SCH (08:28)
[2023-09-28] MEDS: busPIRone 5 MG TAB PO SCH (08:28)
[2023-09-28] MEDS: MULTIVITAMIN TAB PO SCH (08:28)
[2023-09-28] MEDS: DOCUSATE SODIUM 100 MG CAP PO SCH (08:35)
--- NOTE | 2023-09-28 09:28 | Orthopedic Progress Note ---
Date of Service September 28, 2023 Assessment & Plan (1) Primary osteoarthritis of left knee: Plan: Postop day # left total knee arthroplasty -PT/OT--weight-bear as tolerated left lower extremity -Pain management as written--patient will be discharged with oral Tylenol and oral Dilaudid. -DVT prophylaxis: SCDs, teds, Xarelto 10 mg daily -Discharge planning: Plan on discharge with outpatient therapy today. Admission and Anticipated Discharge Date Admission Date: September 25, 2023 Subjective Patient is doing better today. Pain is controlled within the left knee. Seems to be much more comfortable with oral Dilaudid. No new complaints today. Physical Exam Constitutional: WD/WN, vitals as above no acute distress (Patient was resting well at the time of visit. She was awakened easily. C) Musculoskeletal: Knee: + surgical incision (Left knee: TOSIN dressing in place and functioning.); no deformity, no skin erythema and no ecchymosis Skin: no rashes, warm and dry Trauma: no evidence of skin trauma Neurologic: normal touch/pain/proprioception Psychiatric: A+Ox3, euthymic affect Speech: normal rate/rhythm/volume of speech Results & Data Vital Signs (Past 12 Hours) Vital Signs Temp Pulse Resp BP Pulse Ox O2 Del Method 09/28/23 07:40 37.2 C 92 H 16 120/76 92 Room Air 09/27/23 22:38 Room Air Laboratory Results Laboratory Tests 09/28/23 07:04 Hgb 11.3 L Hct 33.4 L
--- OUTSIDE RECORDS SUMMARY | 2023-09-28 10:25 | External Medical Summary | Summary of Care ---
Author Name Unknown Organization [facility] Address [address] [place] [address] Phone [phone] Care Team Providers Care Apprentice Painter Neckties Name Role Phone Shanita Felix PA-C Primary Care Provider [phone]- [phone] Reason for Referral * Evaluate & Treat - Unlimited Visits (Within 10 days (routine)) - Authorized Specialty Diagnoses / Procedures Referred By Jasbir dailey Referred To Contact Podiatry Diagnoses Os peroneum syndrome of right foot Shanita Felix PA-C [address] [facility] [address] Referral ID Status Reason Start Date Expiration Date Visits Requested Visits Authorized [id number] Authorized Specialty Services Required 3 [phone] Question Answer Referral Priority Within 10 days (routine) Where should this appointment be scheduled? Angel Which condition are you referring this patient for? General Podiatry/Other Reason for Visit * Reason Onset Date Comments Test Results 09/27/2023 Encounter Details Date Type Department Care Team ([facility] Contact Info) Description 09/27/2023 Telephone [facility], [place] [address] [place] [address] [place] [address] Shanita Felix PA-C [address] [place] [address] [place] [id number] Test Results Allergies Active Allergy Reactions Criticality Noted Date Comments Fluticasone-Salmeterol 04/03/2014 Increased shortness of breathe. Tolerates albuterol. Ibuprofen 07/21/2004 eyes swell shut Naproxen 07/21/2004 eyes swells shut Prednisone 07/21/2004 Rash. Tolerates injectable steroid. Salmeterol Unknown 08/05/2014 Beclomethasone Dipropionate 04/03/20 14 Increased shortness of breathe Azithromycin Dihydrate 12/01/2008 Feels like hair is standing up on off head documented as of this encounter (statuses as of 09/27/2023) Medications Medication Sig Dispensed Refills Start Date [...] as of this encounter (statuses as of 09/27/2023) Active Problems Problem Noted Date Diagnosed Date [...] as of this encounter (statuses as of 09/27/2023) Resolved Problems Problem Noted Date Diagnosed Date [...] in 2003. Intolerant of Meds. Microadenoma resolved [id number] MRI. 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 Variable sizes reported from 2 to 6 mm over the years. [place] [facility]. Hand joint pain 10/22/2008 02/11/2011 Asthma, allergic 04/14/2017 documented as of this encounter (statuses as of 09/27/2023) Immunizations Name Administration Dates Next Due SEASONAL [...] encounter Miscellaneous Notes * Telephone Encounter - Emily Gardner CMA - 09/27/2023 11:32 AM EST Pt aware currently in hospital due to a knee replacement. Pt will when ready to move forward. * Telephone Encounter - Shanita Felix PA-C - 09/27/2023 7:32 AM EST MRI of right foot is suggestive of os peroneum syndrome, which can cause lateral foot pain. Recommend follow up with Podiatry. documented in this encounter Plan of Treatment Upcoming Encounters Date Type Department Care Team (Late st Contact Info) Description 10/06/2023 4:20 PM EST Office Visit [place] [address] [facility] [address] Shanita Felix PA-C [address] [place] [address] [address] [place] [address] 10/23/2023 8:30 PM EST PulmDiagnostic Sleep Lab, [facility] [address] [place] [address] [facility], Sleep Med [facility] [address] [facility] [place] [address] 06/21/2024 3:45 PM EDT Appointment Radiology, [facility] [address] [place] [phone] 08/23/2024 4:00 PM EDT Office Visit [facility]necology/[facility] [place] [address] Mari Amezcua PA-C [address] [facility] [place] [address] Scheduled Procedures Name Priority Associated Diagnoses Date/Ti me COLONOSCOPY FLEXIBLE PROXIMA L DIAGNOSTIC Recall History of colonic polyps Scheduled Referrals Name Type Priority Associated Diagnoses Orde r Schedule PODIATRY REFERRAL OP Referral Within 10 days (routine) Os peroneum syndrome of right foot Ordered: 09/27/2023 Health Maintenance Due Date Last Done Comments [...] exists LUNG CANCER SCREENING - USE SMARTSET 64514 Completed 06/09/2023 GARDASIL-HPV IMMUNIZATION SERIES Aged Out No longer eligible based on patient's age to complete this topic MENINGOCOCCAL (MENACTRA/MENVEO) Aged Out No longer eligible based on patient's age to complete this topic documented as of this encounter Medical Devices Not on filedocumented as of this encounter Visit Diagnoses Diagnosis Os peroneum syndrome of right foot- Primary documented in this encounter Advance Directives [...] the patient have Health Care Power of Senior Piping Designer? No Care Teams Apprentice Painter Neckties Relationship Specialty Start Date End Date Shanita Felix PA-C [address] [place] [address] [place] [address] PCP - General Physician Music Researcher 11/14/14 documented as of this encounter
--- OUTSIDE RECORDS SUMMARY | 2023-09-28 10:25 | External Medical Summary | Summary of Care ---
Author Name Unknown Organization [facility] Address [address] [place] [address] Phone [phone] Care Team Providers Care Pension Adviser Name Role Phone Kwabenamarlyn Shanita [place] PA-C Primary Care Provider +1- [phone] Reason for Visit * Reason Onset Date Comments Appointment 09/27/2023 Encounter Details Date Type Department Care Team (Late st Contact Info) Description 09/27/2023 Telephone Podiatry, [facility] [address] [place] [address] Jessy Dudley DPM [address] [place], [place] [id number] Appointment Allergies Active Allergy Reactions Criticality Noted Date [...] in 2003. Intolerant of Meds. Microadenoma resolved [id number] MRI. 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 Variable sizes reported from 2 [...] encounter Miscellaneous Notes * Telephone Encounter - Margo Dodson - 09/27/2023 9:30 AM EST LM for patient to call back to schedule return podiatry appointment with Dr. Dudley for right foot pain from WQ. documented in this encounter Plan of Treatment Upcoming Encounters Date Type Department Care Team (Late st Contact Info) Description 10/06/2023 4:20 PM EST Office Visit [place] [address] [place] [address] Shanita Felix PA-C [address] [place] [address] 10/23/2023 8:30 PM EST PulmDiagnostic Sleep Lab, [address] [address] [facility], Sleep Med Night Sleep [address] [place] [address] 06/21/2024 3:45 PM EDT Appointment Radiology, [address] [phone] 08/23/2024 4:00 PM EDT Office Visit Gynecology/Obstetrics [address] [address] Mari Amezcua PA-C [address] [place] [address] Scheduled Procedures Name Priority Associated Diagnoses Date/Ti me COLONOSCOPY FLEXIBLE PROXIMA L DIAGNOSTIC Recall History of colonic polyps Health Maintenance Due Date Last Done Comments COVID-19 Vaccine (#1) 1969 Pneumococcal Vaccine: Pediatrics (0 to 5 Years) and At-Risk Patients (6 to 64 Years) (1 - PCV) 1975 Alpha-1 Antitrypsin 1987 DISCUSS TOBACCO CESSATION (REFER TO SMARTSET #0991) 08/26/2016 08/26/2015 (Refused) Zoster Vaccines (1 of 2) 2019 Depression Screening 07/09/2022 07/09/2021, 08/26/2015 (Discussed) Influenza Vaccine (FLU shot) (#1) 2023 08/17/2017, 08/28/2014, 09/10/2012, Additional history exists O2 ASSESSMENT COMPLETED IN PAST YEAR FOR COPD 12/06/2023 12/06/2022 TSH 03/04/2024 03/04/2023, 051 01/2022, 04/02/2021, Additional history exists Mammogram 06/16/2024 06/16/2023, 08/0 03/2022, 06/04/2021, Additional history exists GFR 08/18/2024 08/18/2023, 02/05, 03/18/2022, Additional history exists COLONOSCOPY-EVERY 3 YRS AGES 18-100 05/31/2025 05/31/2022, 05/31/2022, 03/02/2017, Additional history exists Albumin/Creatinine Ratio 03/04/2026 03/04/2023, 0501/2022 Pap Smear 07/21/2026 07/21/2023, 09/0 07/2022, 02/27/2018, [...] exists LUNG CANCER SCREENING - USE SMARTSET 41206 Completed 06/09/2023 GARDASIL-HPV IMMUNIZATION SERIES Aged Out [...] the patient have Health Care Power of Ballet Professor? No Care Teams Pension Adviser Relationship Specialty Start Date End Date Shanita Felix PA-C [address] [facility] [place] [address] PCP - General Physician College Scouting Coordinator 11/14/14 documented as of this encounter
--- OUTSIDE RECORDS SUMMARY | 2023-09-28 10:25 | External Medical Summary | Summary of Care ---
Author Name Unknown Organization [facility] Address [address] [place] [address] Phone [phone] Care Team Providers Care Underwater Roboticist Name Role Phone Shanita Felix PA-C Primary Care Provider +[phone]- [phone] Reason for Referral * Evaluate & Treat - Unlimited Visits (Within 10 days (routine)) - Authorized Specialty Diagnoses / Procedures Referred By Jasbir dailey Referred To Contact Podiatry Diagnoses Os peroneum syndrome of right foot Shanita Felix PA-C [address] [place] [address] Referral ID Status Reason Start Date Expiration Date Visits Requested Visits Authorized [id number] Authorized Specialty Services Required 3 [phone] Question Answer Referral Priority Within 10 days (routine) Where should this appointment be scheduled? Angel Which condition are you referring this patient for? General Podiatry/Other Reason for Visit * Reason Onset Date Comments Test Results 09/27/2023 Encounter Details Date Type Department Care Team ([facility] Contact Info) Description 09/27/2023 Telephone [facility], [place] [address] [place] [address] [place] [address] Shanita Felix PA-C [address] [place] [address] [place] [id number] Test Results Allergies Active Allergy Reactions Criticality [...] in 2003. Intolerant of Meds. Microadenoma resolved [id number] MRI. Prolactin now 28 off all meds Sciatica 11/17/2008 04/14/2017 Elevated sedimentation rate 10/22/2008 02/11/2011 PITUITARY TUMOR - BENIGN 10/22/200807/2017 Overview: First detected by MRI at [place] in 2000. Variable sizes reported from 2 to 6 mm over the years. Then in January 2011 MRI at [facility], no nodule seen. Hand joint pain 10/22/2008 [...] Description 10/06/2023 4:20 PM EST Office Visit [place] [address] [place] [address] Shanita Felix PA-C [address] [place] [address] [address] [place] [address] 10/23/2023 8:30 PM EST PulmDiagnostic Sleep Lab, [facility] [address] [place] [address] [facility], Sleep Med Night Sleep [address] [place] [address] 06/21/2024 3:45 PM EDT Appointment Radiology, [facility] [address] [facility] [place] [phone] 08/23/2024 4:00 PM EDT Office Visit Gynecology/Obstetrics [facility] [address] [place] [address] Mari Amezcua PA-C [address] [place] [address] Scheduled Procedures Name Priority Associated Diagnoses Date/Ti [...] 03/04/2026 03/04/2023, 03/06 Pap Smear 07/21/2026 07/21/2023, 092, 02/27/2018, Additional history exists Diabetes Screening 08/18/2026 08/18/2023, 0 03/04/2023, 03/04/2023, Additional history exists Lipid Panel 03/04/2028 03/04/2023, 05/1 01/2022, 04/02/2021, Additional history exists Cervical Cancer Screening 07/21/2028 HPV/Co-Test 07/21/2028 07/21/2023 DTaP,Tdap,and Td Vaccines (3 - Td or Tdap) 05/26/2031 05/26/2021, 07/29/2010 COLONOSCOPY-EVERY 5 YRS AGES 18-100 Discontinued 05/31/2022, 05/31/2022, 03/02/2017, Additional history exists LUNG CANCER SCREENING - USE SMARTSET [id number] Completed 06/09/2023 GARDASIL-HPV IMMUNIZATION SERIES Aged Out [...] the patient have Health Care Power of Efficiency Miner? No Care Teams Underwater Roboticist Relationship Specialty Start Date End Date Shanita Felix PA-C [address] [facility] [address] [place] [address] PCP - General Physician Law Librarian 11/14/14 documented as of this encounter
--- NOTE | 2023-10-02 12:37 | Discharge Summary ---
Date of Service October 02, 2023 Admission HPI Per Admitting Provider 53-year-old female with past medical history significant for morbid obesity, neuropathy, sleep apnea, fibromyalgia, hypothyroidism, migraine, COPD who presents with ongoing left knee pain. She has pain interfering with her daily activities. She has failed conservative measures including steroid injections and viscosupplementation. She would like to proceed with surgical management. Patient denies headaches, sweats, fevers, chills, double vision, blurred vision, cough, sore throat, dysphagia, chest pain, sob, wheezing, n/v/d/c, numbness, tingling, fatigue, urinary symptoms, mood disorders. ROS positive for left knee pain and stiffness. Admission Exam Per Admitting Provider Constitutional: well developed and well nourished; no acute distress Eyes: PERRL, conjunctivae normal, anicteric sclerae ENMT: external ear and nose normal, oropharynx normal Neck: trachea midline, no thyromegaly Respiratory: normal respiratory effort, lungs clear to auscultation Cardiovascular: RRR, no murmur, no edema Musculoskeletal: Left knee: Mild effusion. Peripatellar tenderness. Moderate crepitation. Katie's is guarded. Stable valgus and varus stress test. Range of motion is 0 to 130 degrees. Skin: no rashes, warm and dry Neurologic: patellar DTR's 2+ bilat, sensation intact Psychiatric: A+Ox3, euthymic affect Principal Diagnosis Left knee osteoarthritis Discharge Exam Constitutional: WD/WN, vitals as above no acute distress (Patient was resting well at the time of visit. She was awakened easily. C) Musculoskeletal: Knee: + surgical incision (Left knee: TOSIN dressing in place and functioning.); no deformity, no skin erythema and no ecchymosis Skin: no rashes, warm and dry Trauma: no evidence of skin trauma Neurologic: normal touch/pain/proprioception Psychiatric: A+Ox3, euthymic affect Speech: normal rate/rhythm/volume of speech Discharge Data Allergies Allergy/AdvReac Type Severity Reaction Status Date / Time azithromycin [From Zithromax] Allergy Intermediate Feeling of Verified 09/25/23 05:40 "hair standing up off head" beclomethasone Allergy Intermediate Increased Verified 09/25/23 05:40 [From Vanceril] SOB fluticasone Allergy Intermediate "Jittery" Verified 09/25/23 05:40 [From Advair Diskus] feeling ibuprofen Allergy Intermediate Eyes swell Verified 09/25/23 05:40 shut naproxen Allergy Intermediate Eyes swell Verified 09/25/23 05:40 shut prednisone Allergy Intermediate Rash Verified 09/25/23 05:40 salmeterol Allergy Intermediate "Jittery" Verified 09/25/23 05:40 [From Advair Diskus] feeling Consultations 09/21/23 11:06 Consult Hospitalist Routine Procedures Performed Operation Date: 09/25/23 07:15 Actual Procedures p Left Total Knee Arthroplasty(Left) - Favian Guajardo MD Ordered Studies 09/25/23 05:00 US - OR guided needle placemen Routine Hospital Course (1) Primary osteoarthritis of left knee: Postop day #3 left total knee arthroplasty -PT/OT--weight-bear as tolerated left lower extremity -Pain management as written--patient will be discharged with oral Tylenol and oral Dilaudid. -DVT prophylaxis: SCDs, teds, Xarelto 10 mg daily -Discharge planning: Plan on discharge with outpatient therapy today. Postop day #2 left total knee arthroplasty -PT/OT -Pain management as written -DVT prophylaxis: SCDs, teds, Xarelto 10 mg daily -AM labs: Hemoglobin 10.6 from 12.3 preop, acute blood loss anemia due to surgical loss vs dilutional. Leukocytosis likely reactive due to surgical stress versus perioperative steroids, trending down. Patient is asymptomatic -Discharge planning: Plan on discharge with outpatient therapy when stable. Currently pain is improved from yesterday. plan on dc home after PT if progresses week Postop day #1 left total knee arthroplasty -PT/OT -Pain management as written -DVT prophylaxis: SCDs, teds, Xarelto 10 mg daily -AM labs: Hemoglobin 12.1 from 12.3 preop. Leukocytosis likely reactive due to surgical stress versus perioperative steroids. Patient is asymptomatic -Discharge planning: Plan on discharge with outpatient therapy when stable. Currently pain is well controlled. Has had 200 cc of Hemovac output overnight. Will monitor Hemovac output through today. If slows down and pain better controlled possible plan on discharge home today versus tomorrow. Lab Results 09/26/23 09/27/23 09/27/23 Range/Units 06:24 05:43 07:14 WBC 14.47 H 12.24 H (4.8-10.8) K/ul RBC 3.82 L 3.50 L (4.20-5.40) M/uL Hgb 12.1 10.9 L (12.0-16.0) g/dl Hct 35.7 L 31.6 L (37.0-47.0) % MCV 93.5 90.3 (80.0-100.0) fL MCH 31.7 31.1 (25.0-34.0) pg MCHC 33.9 34.5 (32.0-36.0) g/dL RDW Std Deviation 45.9 43.6 (36.4-46.3) fL RDW Coeff of Jaime 13.5 13.2 (11.5-14.5) % Plt Count 175 146 (130-400) K/uL MPV 10.1 10.2 (9.4-12.4) fL Absolute Nucleated RBC Nucleated RBC % (auto) Platelet Estimate Sodium 134 L 134 L (136-145) mmol/L Potassium 3.8 3.4 L (3.5-5.1) mmol/L Chloride 100 95 L (98-107) mmol/L Carbon Dioxide 28 34 H (21-32) mmol/L Anion Gap 6 5 (3-11) BUN 13 8 (6-23) mg/dl Creatinine 1.05 0.76 (0.6-1.2) mg/dl Est Cr Clr Drug Dosing 76.7 106.0 ml/min Est GFR ( Amer) 69.7 103.1 ml/min Est GFR (Non-Af Amer) 60.2 88.9 ml/min BUN/Creatinine Ratio 12.4 10.5 (10-20) Glucose 134 H 112 H (70-99(Fasting)) mg/dl Calcium 8.2 L 8.4 L (8.6-10.3) mg/dl Magnesium 1.8 (1.7-2.4) mg/dl 09/28/23 09/28/23 Range/Units 05:47 07:04 WBC Cancelled 9.86 (4.8-10.8) K/ul RBC Cancelled 3.66 L (4.20-5.40) M/uL Hgb Cancelled 11.3 L (12.0-16.0) g/dl Hct Cancelled 33.4 L (37.0-47.0) % MCV Cancelled 91.3 (80.0-100.0) fL MCH Cancelled 30.9 (25.0-34.0) pg MCHC Cancelled 33.8 (32.0-36.0) g/dL RDW Std Deviation Cancelled 43.9 (36.4-46.3) fL RDW Coeff of Jaime Cancelled 13.2 (11.5-14.5) % Plt Count Cancelled 158 (130-400) K/uL MPV Cancelled 10.0 (9.4-12.4) fL Absolute Nucleated RBC Cancelled Nucleated RBC % (auto) Cancelled Platelet Estimate Cancelled Sodium (136-145) mmol/L Potassium (3.5-5.1) mmol/L Chloride (98-107) mmol/L Carbon Dioxide (21-32) mmol/L Anion Gap (3-11) BUN (6-23) mg/dl Creatinine (0.6-1.2) mg/dl Est Cr Clr Drug Dosing ml/min Est GFR ( Amer) ml/min Est GFR (Non-Af Amer) ml/min BUN/Creatinine Ratio (10-20) Glucose (70-99(Fasting)) mg/dl Calcium (8.6-10.3) mg/dl Magnesium (1.7-2.4) mg/dl Total Time Total Time Spent Total Time Spent (In Minutes): 20 Discharge Plan Discharge Items Patient Disposition: Home - Self-Care Reason For Visit: Left Knee Osteoarthritis Discharge Diagnosis: Left knee osteoarthritis Activity: Per Instructions section Non-emergency contact: Surgeon Call non-emergency contact if: you have any medication questions, your pain is not controlled, you have a fever, your temperature is above 101, your wound has increased redness and your wound has increased drainage Follow-up/Referrals: Shanita Felix PA-C [Primary Care Provider] - Diet: Regular Addtl Attending Provider Instructions: ACTIVITY RECOMMENDATIONS: SELF CARE INSTRUCTIONS AFTER TOTAL KNEE REPLACEMENT A. You may need to continue a physical therapy program after discharge from the hospital. There are several options available to you. Your doctor will assist you in selecting the best one for you. 1. An out-patient facility 2 to 3 times a week for therapy or home therapy. 2. Continue working on all exercises taught to you in the hospital. Your goals should be to increase bending of your knee to 90 degrees and beyond and to fully straighten your knee. B. You may progress at your own pace from walking with a walker or crutches to a cane; then to no assistive devices. C. Make walking a part of your daily routine. Be up as much as comfortable with rest periods throughout the day. Rest with leg elevation is very important. Use the ice wrap frequently for the first 3-4 weeks. D. There are no restrictions on activities. You may ride in a car, shop, participate in ship propeller finisher and all social activities. E. Wear the long elastic stockings (MAO hose) 20 hours a day for 2 weeks after surgery. They can be removed several times a day for laundering and for a bath. F. You may shower, no tub baths until cleared by your doctor. SPECIAL CARE INSTRUCTIONS: VERY IMPORTANT TO READ AND REVIEW A. There are a few signs you need to watch for after you are home. Call [facility] if you notice any of the followin. Increased severe knee pain. Some pain is expected especially when you exercise. 2. Increased swelling in your leg or knee; pain or swelling of the calf muscle in either lower leg. 3. Any fluid drainage from the incision. 4. Shortness of breath or chest pain. B. Please call [facility] at if you have any concerns or questions about your operation or recovery. The doctor or his nurse will return your call promptly. C. You must take antibiotics before dental work, bladder, bowel or other surgery. Your doctor will provide you with a permanent care to carry describing this precaution. IMPORTANT: * REMEMBER TO TAKE ASPIRIN, 81 MG, TWICE DAILY FOR 4 WEEKS UNLESS OTHERWISE DIRECTED. THIS IS YOUR BLOOD THINNER. * HIGH RISK PATIENTS MAY BE PRESCRIBED A STRONGER BLOOD THINNER. THIS WILL BE PROVIDED AT DISCHARGE. * CALL IF INCREASED PAIN, REDNESS, DRAINAGE OR FEVER GREATER THAT 101. * WEAR MAO HOSE 20 HOURS PER DAY FOR 2 WEEKS. There is a large suction dressing covering your incision. This will help pull any excess drainage from the wound and allow your incision to heal properly. You may shower with this if you can keep the unit outside of the shower. If any bleeding or leakage is noted please call your doctor's office. This will remain on your incision for 7 days and then should be removed. This can be done yourself or by the home nursing staff if applicable. The entire unit is disposable once removed. Once removed, keep incision clean and dry. If redness or drainage is noted, please call your surgeon. IF INCISION IS LEAKING THROUGH DRESSING, CALL THE OFFICE . FOLLOW UP VISIT: If appointment is not already scheduled: Please call [facility] to make a follow-up appointment for 2 weeks after your surgery at . Pending Studies at Discharge: No Stand-Alone Forms: My [facility], Pain - Opioid Pain Management, Smoking Cessation Medications and DC Order Prescriptions: New acetaminophen [Tylenol Extra Strength] 500 mg Tablet 1,000 mg PO Q8H Qty: 60 0RF cefadroxil 500 mg capsule 500 mg PO BID Qty: 28 0RF hydromorphone 4 mg tablet 4 mg PO Q6H PRN (Reason: pain) Qty: 20 0RF Rx Instructions: Ongoing therapy, Dr. Guajardo supervising Xarelto 10 mg Tablet 10 mg PO DAILY Qty: 30 0RF Continued multivitamin Tablet 1 tab PO QAM gabapentin 600 mg Tablet 2 tab PO BID valacyclovir [Valtrex] 500 mg Tablet 500 mg PO UD PRN (Reason: Cold Sores) trazodone 100 mg Tablet 100 mg PO HS pantoprazole [Protonix] 40 mg Tablet,Delayed Release (Dr/Ec) 40 mg PO QAM levothyroxine 125 mcg Tablet 125 mcg PO QAM docusate sodium 100 mg Tablet 100 mg PO QAM glucosamine-chondroitin 250-200 mg Tablet 1 tab PO QAM Zyrtec 10 mg Capsule 10 mg PO QAM potassium chloride 20 mEq Tablet Extended Release 20 meq PO QAM albuterol sulfate 90 mcg/actuation Aerosol Powdr Breath Activated 1 inh INHALATION QID PRN (Reason: SHORT OF BREATH) buspirone 10 mg Tablet 10 mg PO BID hydrochlorothiazide 50 mg tablet 50 mg PO DAILY Discharge Orders: Discharge Order (Routine); Ordered 09/28/23 Ordered By: Davidson Knight/Other Patient Handouts: Understanding Knee Replacement, Knee Replace Home Recovery, Knee Replace Control Swelling Admission Data Admit Date/Time: 09/25/23 10:06 Attending Provider: Favian Guajardo Admit Provider: Favian Guajardo Primary Care Provider: Shanita Felix Other Providers: Blanca Reeves; Jocy Garcia I.; India Grewal; Tari Mckeon; Anayeli Arroyo; Trish Pace; Urvashi Cai; Robin Miller; Ranjith Nguyen; Ilya Verdugo; Lori Cabrera; Vargas Lawson; Pattie Balderrama; Marimar Kelsey; Holly Vegas; Mihai Jackson; Maria Antonia Mayers; Cecilia Kennedy; Ruby Bae; Karine Atwood I.; Luis Antonio Merlos; Jhonny Lamb; Quiana Heart; Diego Nicolas; Derek Muro; Magnus Isaacs; Topher Cortes; Jenn Burkett; Monik Cisneros Other Interventions: Discharge Summary Assessment (RN) Last Done: 09/28/23 09:46
== END 2023-09-28 10:55 | disposition home or self-care (01) ==
LOC: 3E 05:02 → ASU 05:02 → 3E 13:48